=== PATIENT | female | born 1925 | race Caucasian/White ===

== ENCOUNTER 2016-05-18 10:47 | Inpatient (IN) | payer OTHER ==
--- NOTE | 2016-05-18 11:26 | PDOC ---
History of Present Illness - General History Source: Patient, Care Provider (Home health aide), Family Exam Limitations: Dementia - History of Present Illness Initial Comments: 05/18/16 11:44 The patient is an 89 year old female with significant past medical history of dementia, diabetes, a-fib (on Coumadin) who presents to the emergency department accompanied by her home health aide and family s/p a fall that happened yesterday. As per the home health aide, the patient has had multiple falls within the last week. She states the patient is unable to stand up secondary to weakness in her legs. She denies any head trauma or LOC from the fall. The home health aide also noted increased swelling in the right lower extremity since the fall. The patient is not complaining of any pain. She denies any abdominal pain, nausea, or vomiting. She denies chest pain or shortness of breath. She denies any history of heart failure, no history of blood clots, no recent travels. She denies recent illness, fevers, or chills. History is limited secondary to patients dementia. PMD: Dr. Mann <Mariel Guerra - Last Filed: 05/18/16 11:43> <Kaylie Avalos - Last Filed: 05/23/16 07:53> - General Stated Complaint: FALL Time Seen by Provider: 05/18/16 11:06 Past History <Mariel Guerra - Last Filed: 05/18/16 11:43> - Past Medical History Cardiac Disorders: Yes CVA: Yes Dementia: Yes Diabetes: Yes HTN: Yes Hypercholesterolemia: Yes Suicide Attempt (Hx): No - Psycho/Social/Smoking Cessation Hx Anxiety: No Suicidal Ideation: No Smoking Status: No Smoking History: Former smoker Have you smoked in the past 12 months: No Number of Cigarettes Smoked Daily: 0 If you are a former smoker, when did you quit?: Over 20 years ago Hx Alcohol Use: No Drug/Substance Use Hx: No Substance Use Type: None Hx Substance Use Treatment: No <Kaylie Avalos - Last Filed: 05/23/16 07:53> - Past Medical History Allergies/Adverse Reactions: Allergies Allergy/AdvReac Type Severity Reaction Status Date / Time No Known Allergies Allergy Verified 05/18/16 12:38 Home Medications: Ambulatory Orders Carbidopa/Levodopa [Carbidopa-Levo 25-100 Tab] 1 each PO TID 02/26/14 Glipizide [Glipizide ER] 5 mg PO DAILY 02/26/14 Metformin HCl [Glucophage -] 500 mg PO DAILY 02/26/14 Metoprolol Succinate [Toprol XL -] 25 mg PO DAILY 02/26/14 Oxybutynin Chloride [Oxybutynin Chloride ER] 5 mg PO DAILY 02/26/14 Ramipril [Altace] 2.5 mg PO DAILY 02/26/14 Amlodipine Besylate [Norvasc -] 2.5 mg PO DAILY #30 tablet 03/03/14 Warfarin Na [Coumadin -] 3 mg PO SUMOTUWETHSA 05/18/16 Warfarin Na [Coumadin] 4 mg PO FR 05/18/16 Review of Systems - Review of Systems Able to Perform ROS?: No (Unable to attain) <Mariel Guerra - Last Filed: 05/18/16 11:43> *Physical Exam - Physical Exam Comments: GENERAL: Awake, alert, and oriented to person and place, in no acute distress HEAD: No signs of trauma EYES: PERRLA, EOMI, sclera anicteric, conjunctiva clear ENT: Auricles normal inspection, hearing grossly normal, nares patent, oropharynx clear without exudates. Dry mucosa NECK: Normal ROM, supple, no lymphadenopathy, JVD, or masses LUNGS: Breath sounds equal, clear to auscultation bilaterally. No wheezes, and no crackles HEART: Irregularly irregular. ABDOMEN: Soft, nontender, normoactive bowel sounds. No guarding, no rebound. No masses EXTREMITIES: Normal range of motion. 2+ pitting edema RLE, 1+ edema LLE. +Large bulla 3cm diameter to R medial ankle. +Trace erythema to R medial ankle. + Tenderness to R ankle. Trace ecchymosis to R medial knee. No clubbing or cyanosis. No cords NEUROLOGICAL: Cranial nerves II through XII grossly intact. Normal speech. Motor and sensation intact. Gait not tested due to nature of complaint. SKIN: Warm, Dry, normal turgor, no rashes or lesions noted. <Kaylie Avalos - Last Filed: 05/23/16 07:53> Procedures - Splinting Splint Location: Right: Ankle Pre-Proc Neuro Vasc Exam: normal Hand-Made Type: orthoglass Splint Type: Yes: Sugar Tong, Short Leg Post-Proc Neuro Vasc Exam: normal Juan Luis Bandage: 4" Complications: No <Kaylie Avalos - Last Filed: 05/23/16 07:53> Heart Score/ECG Review - ECG Impressions Comment:: EKG read 11:13- afib, 104 bpm, no acute ST/T changes <Kaylie Avalos - Last Filed: 05/23/16 07:53> ED Treatment Course - LABORATORY CBC & Chemistry Diagram: 05/22/16 08:10 05/21/16 Unknown <Kaylie Avalos - Last Filed: 05/23/16 07:53> Medical Decision Making - Medical Decision Making Case d/w Dr. Mueller, family request for his group. Will evaluate. I have placed splint and will admit for UTI, fall, trimal fx. <Kaylie Avalos - Last Filed: 05/23/16 07:53> *DC/Admit/Observation/Transfer - Attestations Scribe Attestion: 05/18/16 11:44 Documentation prepared by Mariel Guerra, acting as medical appointment scheduler for Kaylie Avalos MD. <Mariel Guerra - Last Filed: 05/18/16 11:43> - Discharge Dispostion Admit: Yes <Kaylie Avalos - Last Filed: 05/23/16 07:53> Diagnosis at time of Disposition: Urinary tract infection Qualifiers: Urinary tract infection type: site unspecified Hematuria presence: without hematuria Qualified Code(s): N39.0 - Urinary tract infection, site not specified Trimalleolar fracture of ankle, closed Qualifiers: Encounter type: initial encounter Laterality: right Qualified Code(s): S82.851A - Displaced trimalleolar fracture of right lower leg, initial encounter for closed fracture - Discharge Dispostion Condition at time of disposition: Stable
[2016-05-18 12:42] LABS: BASOPHIL 0.3 % (0-2.0); EOSINOPHIL 0.5 % (0-4.5); MCH 28.2 pg (25.7-33.7); MCHC 32.4 g/dl (32.0-36.0); MEAN PLT VOLUME 7.5 fl (7.5-11.1); NEUTROPHILS 82.3 % (42.8-82.8); PLATELET COUNT 390 K/MM3 (134-434); RDW 15.2 % (11.6-15.6); WHITE BLOOD COUNT 15.5 K/mm3 (4.0-10.0)
[2016-05-18 12:43] LABS: URINE APPEARANCE CLEAR; URINE BILIRUBIN 1+ (NEGATIVE); URINE GLUCOSE (UA) NEGATIVE (NEGATIVE); URINE KETONE TRACE (NEGATIVE); URINE UROBILINOGEN 0.2 E.U/dl E.U./dl (0.2-1.0)
[2016-05-18 12:46] LABS: URINE BLOOD 3+ (NEGATIVE); URINE COLOR RED; URINE LEUK ESTERASE 2+ (NEGATIVE); URINE NITRITE POSITIVE (NEGATIVE); URINE PROTEIN 3+ (NEGATIVE)
[2016-05-18 12:55] LABS: URINE BACTERIA MODERATE /hpf (NONE SEEN); URINE MUCUS RARE; URINE RBC 682 /hpf (0-3); URINE WBC 851 /hpf (3-5)
[2016-05-18] MEDS ORDERED: CEFTRIAXONE 1 GM in DEXTROSE 5%-WATER - 50 ML IVPB ONE (13:00)
[2016-05-18] MEDS ORDERED: CEFTRIAXONE 50 ML ONE (13:28)
[2016-05-18 13:30] LABS: ALBUMIN 2.7 g/dl (3.4-5.0); ANION GAP 9 (8-16); BILIRUBIN,TOTAL 0.5 mg/dL (0.2-1.0); CALCIUM 8.2 mg/dL (8.5-10.1); CO2 24 mmol/L (21-32); CREATININE 1.4 mg/dL (0.55-1.02); GLUCOSE,RANDOM 200 mg/dL (74-106); SGOT/AST 27 U/L (15-37); SGPT/ALT 11 U/L (12-78)
[2016-05-18 13:35] LABS: ALK PHOS 161 U/L (45-117)
[2016-05-18 13:36] LABS: TROPONIN I < 0.02 ng/ml (0.00-0.05)
[2016-05-18 13:44] LABS: TOT PROT 7.6 g/dl (6.4-8.2)
[2016-05-18] MEDS ORDERED: morphine CARPU-JECT 4 MG/1 ML DISP.SYRIN IVPUSH PRN (17:13)
[2016-05-18] MEDS ORDERED: ONDANSETRON 4 MG/2 ML VIAL IVPB PRN (17:13)
[2016-05-18] MEDS ORDERED: RAMIPRIL 2.5 MG CAPSULE (FP) PO SCH (17:15)
[2016-05-18] MEDS ORDERED: ACETAMINOPHEN 325 MG TABLET (FP) ONE (17:28)
[2016-05-18] MEDS: ACETAMINOPHEN 325 MG TABLET (FP) PO PRN (17:32)
--- NOTE | 2016-05-18 17:58 | CONSULT ---
Cardiology Consult (text) - Consultation Consultation Note: CC: fall 89 yo with h/o dementia, cva, htn, niddm, afib on coumadin, as, mod mr, mild ar here s/p fall c/b RLE fracture, also noted to have uti. History limited due to dementia. Per report had two mechanical falls due to weakness in the past week. Family states progressive weakness for the past month. Aide denies poor po intake. No sob, cp, palps, dizzy, loc, pnd, orthopnea, le edema. No subjective f/c/s (low grade fever here), n/v/d, cough, bleeding, nasal congestion. + bed sores. Minimal ambulation, is only able to walk from one room to next at baseline, currently weakness causing difficulty walking a few steps. No h/o chf, cad. pmh: per hpi psh: non contrib social: ex tobacco fam: non contrib ros: per hpi Ambulatory Orders Carbidopa/Levodopa [Carbidopa-Levo 25-100 Tab] 1 each PO TID 02/26/14 Glipizide [Glipizide ER] 5 mg PO DAILY 02/26/14 Metformin HCl [Glucophage -] 500 mg PO DAILY 02/26/14 Metoprolol Succinate [Toprol XL -] 25 mg PO DAILY 02/26/14 Oxybutynin Chloride [Oxybutynin Chloride ER] 5 mg PO DAILY 02/26/14 Ramipril [Altace] 2.5 mg PO DAILY 02/26/14 Amlodipine Besylate [Norvasc -] 2.5 mg PO DAILY #30 tablet 03/03/14 Ramipril [Altace] 1.25 mg PO DAILY #0 capsule 03/03/14 Warfarin Na [Coumadin -] 3 mg PO DAILY@1800 #30 tablet 03/03/14 Current Medications Acetaminophen (Tylenol -) 650 mg PO Q6H PRN PRN Reason: FEVER OR PAIN Last Admin: 05/18/16 17:32 Dose: 650 mg Amlodipine Besylate (Norvasc -) 2.5 mg PO DAILY [facility] Carbidopa/Levodopa (Sinemet 25/100 -) 1 each PO TID [facility] Metoprolol Succinate (Toprol Xl -) 25 mg PO DAILY [facility] Morphine Sulfate (Morphine Injection -) 4 mg IVPUSH Q6H PRN PRN Reason: PAIN Ondansetron HCl (Zofran Injection) 4 mg IVPB Q6H PRN PRN Reason: NAUSEA Oxybutynin Chloride (Ditropan -) 5 mg PO BID BLESSING Ramipril (Altace -) 2.5 mg PO DAILY [facility] Vital Signs - 24 hr 05/18/16 05/18/16 05/18/16 12:30 12:35 16:55 Temperature 99.1 F 100.2 F H Pulse Rate 111 H Pulse Rate [ 85 81 Apical] Respiratory 16 16 16 Rate Blood Pressure 146/92 Blood Pressure 120/79 126/82 [Right] O2 Sat by Pulse 100 100 99 Oximetry (%) Intake & Output 05/16/16 05/17/16 05/18/16 05/19/16 07:59 07:59 07:59 07:59 Weight 200 lb NAD, calm JVD flat, neck supple bibasilar crackles, poor effort Irregularly, irregular nl s1, s2 no m/r/g + bs soft nt nd ext with edema under RLE dressing, no edema on left + dp/pt no carotid bruits no jaundice diaphoresis CBC, BMP 05/18/16 12:08 05/18/16 12:08 Laboratory Tests 05/18/16 05/18/16 12:08 21:15 INR 8.57 H* D Total Bilirubin 0.5 D AST 27 D ALT 11 L D Alkaline Phosphatase 161 H D Creatine Kinase 229 H D CK-MB (CK-2) 3.957 H Troponin I < 0.02 Albumin 2.7 L EKG: afib with pvc's vs aberran conduction, VR 104 bpm. nl axis. no ischemic changes. CXR: no acute pathology echo 2012: nl lv/rv. mod benito. - JON measured at 0.9, but PG and MG only 27/ 13, mod MAC. mod MR/TR. RVSP 46 89 yo with h/o dementia, cva, htn, niddm, afib on coumadin, as, mod mr, mild ar here s/p fall c/b RLE fracture, also noted to have uti. pre-operative clearance/RLE fracture. - patient with RCRI of 1, but with advanced age and poor functional status. Estimated risk of nnamdi-operative CV events is intermediate. Family counseled on risk. Patient with no active CV issues. However, would repeat echo prior to surgery to reassess degree of to help guide nnamdi-operative care. Currently without clinical signs/symptoms of severe /need for surgical intervention. Per report weakness does not seem to be a symptoms of presyncope/ syncope and more likely related to UTI. Currently with supratheraputic INR. Given h/o CVA would consider bridging patient when INR subtherapeutic. afib with h/o CVA: - Reasonable HR control given fracture/infection. Resume home metoprolol. - INR supratherapeutic. Coumadin on hold. Consider bridging if ok per surgery once INR subtherapeutic HTN - Con't metoprolol. Would hold low dose amlodipine and ramipril since currently with JESSICA and potassium upper range of normal. BP currently well controlled without having received anti-hypertensives today. mod mr, mild ar, , pHTN: - Repeat echo to assess degree of as mentioned above. - appears euvolemic. No signs of valvular decompensation - HR control as above. uti, - Continue abx per pmd. JESSICA - OK to give gentle fluids if needed per pmd. NIDDM - per pmd. - currently off statin, reasonable given dementia and age. Risk/benefit can be further addressed as outpatient
[2016-05-18 19:15] VITALS: BMI 24.4
[2016-05-18] MEDS: OXYBUTYNIN CHLORIDE 5 MG TABLET PO SCH (22:05)
[2016-05-18] MEDS: CARBIDOPA/LEVODOPA 25/100 TABLET (FP) PO SCH (22:05)
[2016-05-18 22:32] LABS: PROTHROMBIN TIME (PATIENT) 98.5 SEC (9.98-11.88)
[2016-05-18 22:46] LABS: INR 8.57 (0.82-1.09)
[2016-05-18] MEDS ORDERED: PHYTONADIONE 10 MG/1 ML AMP IVPB ONE (23:30)
[2016-05-19] MEDS: CARBIDOPA/LEVODOPA 25/100 TABLET (FP) PO SCH ×3 (07:01→22:03)
[2016-05-19 08:07] LABS: MCH 28.1 pg (25.7-33.7); MCHC 32.7 g/dl (32.0-36.0); MEAN CELL VOLUME 85.8 fl (80-96); MEAN PLT VOLUME 7.9 fl (7.5-11.1); PLATELET COUNT 326 K/MM3 (134-434); RDW 15.2 % (11.6-15.6); WHITE BLOOD COUNT 14.1 K/mm3 (4.0-10.0)
[2016-05-19 09:33] LABS: INR 1.86 (0.82-1.09); PROTHROMBIN TIME (PATIENT) 20.7 SEC (9.98-11.88)
[2016-05-19] MEDS ORDERED: amLODIPine BESYLATE 2.5 MG TABLET (FP) PO SCH (10:00)
--- NOTE | 2016-05-19 10:19 | HP ---
Admitting History and Physical - Primary Care Physician PCP: Etienne Mann - Admission Chief Complaint: s/p fall right ankle fracture, rectal bleed, uti History of Present Illness: 89 Y/O FEMALE HISTORY CHRONIC AFIB ON COUMADIN, OLD CVA, CHRONIC UTI, HERE WITH S/P FALL RIGHT MALLEOLAR FRACTURE, ACUTE RECTAL BLEED, ANEMIA, ACUTE ON CHRONIC UTI/CYSTITIS. PATIENT ALSO HAS DM/HTN/DEMENIA/UNSTEADY GAIT. 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 Cardiovascular: Yes: AFIB Renal/: Yes: UTI Endocrine: Yes: Diabetes Mellitus - Smoking History Smoking history: Former smoker Have you smoked in the past 12 months: No Aproximately how many cigarettes per day: 0 If you are a former smoker, when did you quit?: Over 20 years ago - Alcohol/Substance Use Hx Alcohol Use: No - Social History 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 History of Recent Travel: No Home Medications - Allergies Allergies/Adverse Reactions: Allergies Allergy/AdvReac Type Severity Reaction Status Date / Time No Known Allergies Allergy Verified 05/18/16 12:38 - Home Medications Home Medications: Ambulatory Orders Carbidopa/Levodopa [Carbidopa-Levo 25-100 Tab] 1 each PO TID 02/26/14 Glipizide [Glipizide ER] 5 mg PO DAILY 02/26/14 Metformin HCl [Glucophage -] 500 mg PO DAILY 02/26/14 Metoprolol Succinate [Toprol XL -] 25 mg PO DAILY 02/26/14 Oxybutynin Chloride [Oxybutynin Chloride ER] 5 mg PO DAILY 02/26/14 Ramipril [Altace] 2.5 mg PO DAILY 02/26/14 Amlodipine Besylate [Norvasc -] 2.5 mg PO DAILY #30 tablet 03/03/14 Warfarin Na [Coumadin -] 3 mg PO SUMOTUWETHSA 05/18/16 Warfarin Na [Coumadin] 4 mg PO FR 05/18/16 Review of Systems - Review of Systems Constitutional: reports: Loss of Appetite, Weakness Eyes: reports: No Symptoms HENT: reports: No Symptoms Neck: reports: No Symptoms Cardiovascular: reports: Palpitations Respiratory: reports: No Symptoms Gastrointestinal: reports: No Symptoms Genitourinary: reports: Incontinence Musculoskeletal: reports: Joint Pain, Muscle Weakness Integumentary: reports: No Symptoms Neurological: reports: Confusion, Pre-Existing Deficit, Unsteady Gait, Weakness Endocrine: reports: No Symptoms Hematology/Lymphatic: reports: No Symptoms Psychiatric: reports: Other Physical Examination Vital Signs: Vital Signs Temperature 98.8 F 05/19/16 09:22 Pulse Rate 102 H 05/19/16 09:22 Respiratory Rate 20 05/19/16 09:22 Blood Pressure 139/72 05/19/16 09:22 O2 Sat by Pulse Oximetry (%) 96 05/18/16 21:00 Constitutional: Yes: Mild Distress Eyes: Yes: WNL HENT: Yes: WNL Neck: Yes: WNL Cardiovascular: Yes: Pulse Irregular Respiratory: Yes: WNL Gastrointestinal: Yes: WNL Renal/: Yes: Incontinence, Other Musculoskeletal: Yes: Joint Swelling, Muscle Pain, Muscle Weakness Extremities: Yes: Other (RIGHT LOWER LEG SPLINT) Edema: No Integumentary: Yes: Venous Stasis Changes Wound/Incision: Yes: Dressing Dry and Intact Neurological: Yes: Confusion, Pre-Existing Deficit, Unsteady Gait, Weakness ...Motor Strength: LLE, RLE Psychiatric: Yes: Other Labs: CBC, BMP 05/19/16 07:00 Imaging - Results X-ray: Report Reviewed Problem List - Problems (1) Trimalleolar fracture of ankle, closed Code(s): S82.853A - DISPLACED TRIMALLEOLAR FRACTURE OF UNSP LOWER LEG, INIT Qualifiers: Encounter type: initial encounter Laterality: right Qualified Code( s): S82.851A - Displaced trimalleolar fracture of right lower leg, initial encounter for closed fracture (2) Urinary tract infection Code(s): N39.0 - URINARY TRACT INFECTION, SITE NOT SPECIFIED Qualifiers: Urinary tract infection type: site unspecified Hematuria presence: without hematuria Qualified Code(s): N39.0 - Urinary tract infection, site not specified (3) Bimalleolar ankle fracture Code(s): S82.843A - DISPLACED BIMALLEOLAR FRACTURE OF UNSP LOWER LEG, INIT (4) Atrial fibrillation Code(s): I48.91 - UNSPECIFIED ATRIAL FIBRILLATION (5) Diabetes Code(s): E11.9 - TYPE 2 DIABETES MELLITUS WITHOUT COMPLICATIONS Qualifiers: Diabetes mellitus complication status: with kidney complications Diabetes mellitus complication detail: with chronic kidney disease (6) Rectal bleed Code(s): K62.5 - HEMORRHAGE OF ANUS AND RECTUM (7) Anemia Code(s): D64.9 - ANEMIA, UNSPECIFIED Qualifiers: Other causes of anemia: acute posthemorrhagic (8) Dementia Code(s): F03.90 - UNSPECIFIED DEMENTIA WITHOUT BEHAVIORAL DISTURBANCE (9) CVA, old, cognitive deficits Code(s): I69.31 - COGNITIVE DEFICITS FOLLOWING CEREBRAL INFARCT * DO NOT USE * Assessment/Plan COUMADIN ON HOLD MONITOR H/H [facility]E AND GI CALLED FOR CONSULT CARDIOLOGY EVAL APPRECIATED IV ABX FOR ACUTE UTI ORTHOPEDICS WITH F/U RIGHT ANKLE FRACTURE SNF PLACEMENT ON DISCHARGE
[2016-05-19] MEDS: OXYBUTYNIN CHLORIDE 5 MG TABLET PO SCH ×2 (10:55→22:03)
[2016-05-19] MEDS: METOPROLOL SUCCINATE 25 MG TAB.SR.24H (FP) PO SCH (10:55)
[2016-05-19] MEDS: CEFTRIAXONE 100 ML IVPB SCH (10:56)
[2016-05-19] MEDS: ACETAMINOPHEN 325 MG TABLET (FP) PO PRN (11:03)
--- NOTE | 2016-05-19 11:12 | EKG ---
Test Reason : Blood Pressure : / mmHG Vent. Rate : 104 BPM Atrial Rate : 063 BPM P-R Int : 000 ms QRS Dur : 062 ms QT Int : 336 ms P-R-T Axes : 000 -20 000 degrees QTc Int : 441 ms POOR DATA QUALITY, INTERPRETATION MAY BE ADVERSELY AFFECTED ATRIAL FIBRILLATION WITH RAPID VENTRICULAR RESPONSE WITH PREMATURE VENTRICULAR OR ABERRANTLY CONDUCTED COMPLEXES ABNORMAL ECG WHEN COMPARED WITH ECG OF 26-FEB-2014 07:59, ST NO LONGER DEPRESSED IN ANTERIOR LEADS T WAVE INVERSION NOW EVIDENT IN INFERIOR LEADS Confirmed by MARIZA CAMARGO MD ([id number]) on 05/19/2016 11:11:54 AM Referred By: Confirmed By:MARIZA CAMARGO MD
[2016-05-19] MEDS ORDERED: oxyCODONE HCL 5 MG TABLET PO PRN (11:25)
[2016-05-19] MEDS: PANTOPRAZOLE SODIUM 100 ML IVPB SCH ×2 (11:25→22:03)
--- NOTE | 2016-05-19 11:29 | CONSULT ---
[id number] Present Illness Chief Complaint: R ankle pain History of Present Illness: 89 year old female with significant past medical history of dementia, diabetes, a-fib (on Coumadin) who was admitted for a right ankle fracture. The patient's nieces are at bedside. They state that the patient lives at home with the help of 2 health aides. This past week the patient fell x 2 at home. They state the patient was walking with her home health aide when she lost her balance and fell. The patient began having right ankle swelling and pain s/p the 2nd fall. The patient was brought to the ED and admitted for a right ankle fracture. The patient states her pain has decreased since the injury. Denies numbness/ tingling. She denies any previous ankle injury or surgery. 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 Cardio/Vascular: Yes: AFIB Renal/: Yes: UTI Endocrine: Yes: Diabetes Mellitus Additional Medical History: groin abscess s/p incision and drainage 2012 - Alcohol/Substance Use Hx Alcohol Use: No - Smoking History Smoking history: Former smoker Have you smoked in the past 12 months: No Aproximately how many cigarettes per day: 0 If you are a former smoker, when did you quit?: Over 20 years ago - Social History Usual Living Arrangement: Other (with aide) 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 History of Recent Travel: No Home Medications - Allergies Allergies/Adverse Reactions: Allergies Allergy/AdvReac Type Severity Reaction Status Date / Time No Known Allergies Allergy Verified 05/18/16 12:38 - Home Medications Home Medications: Ambulatory Orders Carbidopa/Levodopa [Carbidopa-Levo 25-100 Tab] 1 each PO TID 02/26/14 Glipizide [Glipizide ER] 5 mg PO DAILY 02/26/14 Metformin HCl [Glucophage -] 500 mg PO DAILY 02/26/14 Metoprolol Succinate [Toprol XL -] 25 mg PO DAILY 02/26/14 Oxybutynin Chloride [Oxybutynin Chloride ER] 5 mg PO DAILY 02/26/14 Ramipril [Altace] 2.5 mg PO DAILY 02/26/14 Amlodipine Besylate [Norvasc -] 2.5 mg PO DAILY #30 tablet 03/03/14 Warfarin Na [Coumadin -] 3 mg PO SUMOTUWETHSA 05/18/16 Warfarin Na [Coumadin] 4 mg PO FR 05/18/16 Family Disease History - Family Disease History Family History: Unable to Obtain Review of Systems - Review of Systems Constitutional: reports: No Symptoms Eyes: reports: No Symptoms HENT: reports: No Symptoms Neck: reports: No Symptoms Cardiovascular: reports: No Symptoms Respiratory: reports: No Symptoms Gastrointestinal: reports: No Symptoms Genitourinary: reports: No Symptoms Musculoskeletal: reports: Joint Pain (right ankle), Joint Swelling Integumentary: reports: No Symptoms Neurological: reports: No Symptoms Endocrine: reports: No Symptoms Hematology/Lymphatic: reports: No Symptoms Psychiatric: reports: No Symptoms Physical Exam for Ortho Vital Signs: Vital Signs Temperature 98.8 F 05/19/16 09:22 Pulse Rate 102 H 05/19/16 09:22 Respiratory Rate 20 05/19/16 09:22 Blood Pressure 139/72 05/19/16 09:22 O2 Sat by Pulse Oximetry (%) 96 05/18/16 21:00 Constitutional: Yes: Well Nourished, No Distress, Calm Neck: Yes: WNL, Supple, Trachea Midline Cardiovascular: Yes: WNL, Regular Rate and Rhythm Respiratory: Yes: WNL, Regular Neurological: Yes: WNL, Alert, Oriented Labs: CBC, BMP 05/19/16 07:00 INR, PTT INR 1.86 (0.82-1.09) H D 05/19/16 08:45 - Lower Extremity Ankle: Yes: Right, Pain, Swelling, Tenderness (tender lateral and medial malleolus), Other (intact blister noted to the anterior ankle with no surrounding erythema or discharge) - Affected Extremity Motor Strength: 5/5: Right Leg Peripheral Pulses: 2+ Left Doralis Pedis, 2+ Right Dorsalis Pedis Neuro/Vascular Assessment: Yes: Warm, [place], Normal Sensation Imaging - Results X-ray: Report Reviewed, Image Reviewed (Right ankle x-ray images and report reviewed showing a trimalleolar fracture with displacement of the lateral malleolus) Problem List - Problems (1) Trimalleolar fracture of ankle, closed Code(s): S82.853A - DISPLACED TRIMALLEOLAR FRACTURE OF UNSP LOWER LEG, INIT Qualifiers: Encounter type: initial encounter Laterality: right Qualified Code(s): S82.851A - Displaced trimalleolar fracture of right lower leg, initial encounter for closed fracture Assessment/Plan -I spoke to the patient and her nieces regarding today's findings. We discussed that there is a trimalleolar fracture present with displacement of the lateral malleolus. We reviewed the relevant anatomy and discussed the treatment options which include operative versus non-operative care. We reviewed that in general, the results are similar after a year post injury. Surgery would allow for an earlier return to function while casting would eliminate surgical risks such as bleeding, infection and neurovascular injury. Given the patient's baseline functional status, I have recommended non-operative management with a closed reduction of the lateral malleolus fragment. The patient and her nieces agreed to proceed. -Procedure: The right ankle blister was covered with a xeroform dressing. The right ankle was hung in traction. A manual reduction was effected. A well- padded short leg cast was placed utilizing a 3-point mold. Post reduction radiographs were obtained. The patient was instructed in cast care, keeping the cast clean and dry. We discussed elevating in order to limit swelling. We discussed signs of a too tight cast. -The patient will follow up with Dr. Mueller in the office in 1 week for repeat radiographs to assess the stability of the fracture. -NWB on the RLE -Ice, rest and elevate the affected extremity
[2016-05-19] MEDS ORDERED: morphine CARPU-JECT 2 MG/1 ML DISP.SYRIN ONE (11:54)
[2016-05-19] MEDS ORDERED: morphine CARPU-JECT 2 MG/1 ML DISP.SYRIN IVPUSH ONE (12:00)
[2016-05-19 12:45] LABS: ALBUMIN 2.4 g/dl (3.4-5.0); BILIRUBIN,TOTAL 1.1 mg/dL (0.2-1.0); CALCIUM 8.1 mg/dL (8.5-10.1); TOT PROT 6.6 g/dl (6.4-8.2)
[2016-05-19 12:58] LABS: MCH 28.2 pg (25.7-33.7); MCHC 32.7 g/dl (32.0-36.0); MEAN CELL VOLUME 86.1 fl (80-96); MEAN PLT VOLUME 7.7 fl (7.5-11.1); PLATELET COUNT 280 K/MM3 (134-434); RDW 14.9 % (11.6-15.6)
--- NOTE | 2016-05-19 14:27 | CONSULT ---
Consult Consult Specialty:: Nephrology Reason for Consultation:: JESSICA and UTI - History of Present Illness Chief Complaint: presented s/p fall History of Present Illness: Pt is an 89 year old female with pmhx of a-fib, dementia, and DM who presents to the ER status post fall. She was found to be in renal failure and I was called to evaluate her. She denies history of CKD. She denies hematuria or dysuria. She is incontinent. She was fount to have a right ankle fracture. Pt was also found to have a UTI. She is currently awake and alert. She appears comfortable. Family are at bedside and helped with history. 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 History of Recent Travel: No Home Medications - Allergies Allergies/Adverse Reactions: Allergies Allergy/AdvReac Type Severity Reaction Status Date / Time No Known Allergies Allergy Verified 05/18/16 12:38 - Home Medications Home Medications: Ambulatory Orders Carbidopa/Levodopa [Carbidopa-Levo 25-100 Tab] 1 each PO TID 02/26/14 Glipizide [Glipizide ER] 5 mg PO DAILY 02/26/14 Metformin HCl [Glucophage -] 500 mg PO DAILY 02/26/14 Metoprolol Succinate [Toprol XL -] 25 mg PO DAILY 02/26/14 Oxybutynin Chloride [Oxybutynin Chloride ER] 5 mg PO DAILY 02/26/14 Ramipril [Altace] 2.5 mg PO DAILY 02/26/14 Amlodipine Besylate [Norvasc -] 2.5 mg PO DAILY #30 tablet 03/03/14 Warfarin Na [Coumadin -] 3 mg PO SUMOTUWETHSA 05/18/16 Warfarin Na [Coumadin] 4 mg PO FR 05/18/16 Family Disease History - Family Disease History Family History: Denies Review of Systems - Review of Systems Constitutional: reports: Malaise Eyes: reports: No Symptoms HENT: reports: No Symptoms Neck: reports: No Symptoms Cardiovascular: reports: No Symptoms Respiratory: reports: No Symptoms Gastrointestinal: reports: No Symptoms Genitourinary: reports: Incontinence Musculoskeletal: reports: Other (ankle pain) Neurological: reports: No Symptoms Endocrine: reports: No Symptoms Psychiatric: reports: No Symptoms Physical Exam Vital Signs: Vital Signs Temperature 98.8 F 05/19/16 09:22 Pulse Rate 102 H 05/19/16 09:22 Respiratory Rate 20 05/19/16 09:22 Blood Pressure 139/72 05/19/16 09:22 O2 Sat by Pulse Oximetry (%) 96 05/19/16 09:00 Constitutional: Yes: Calm Eyes: Yes: Conjunctiva Clear HENT: Yes: Atraumatic Neck: Yes: Supple Cardiovascular: Yes: S1, S2 Respiratory: Yes: CTA Bilaterally Gastrointestinal: Yes: Soft, Abdomen, Obese Renal/: Yes: Incontinence Musculoskeletal: Yes: Other (right ankle pain) Edema: No Neurological: Yes: Oriented Psychiatric: Yes: Oriented Labs: CBC, BMP 05/19/16 12:40 05/19/16 07:00 Laboratory Tests 05/18/16 05/18/16 05/18/16 12:08 12:08 12:08 WBC 15.5 H D Hgb 10.4 L Sodium 140 Potassium 4.9 D Chloride 107 Carbon Dioxide 24 Anion Gap 9 BUN 37 H D Creatinine 1.4 H D Random Glucose 200 H D Alkaline Phosphatase 161 H D Creatine Kinase 229 H D Ur Specific [place] 1.020 Urine Protein 3+ H Urine Glucose (UA) Negative Urine Ketones Trace H Urine Blood 3+ H Urine Nitrite Positive Urine Bilirubin 1+ H Urine Urobilinogen 0.2 e.u/dl Ur Leukocyte Esterase 2+ H Urine RBC 682 Urine WBC 851 05/19/16 05/19/16 05/19/16 07:00 07:00 12:40 WBC 14.1 H 13.0 H Hgb 8.5 L D 8.1 L Sodium 142 Potassium 4.3 Chloride 111 H Carbon Dioxide Anion Gap 8 BUN Creatinine 1.0 D Random Glucose 168 H Alkaline Phosphatase 142 H Creatine Kinase Ur Specific [place] Urine Protein Urine Glucose (UA) Urine Ketones Urine Blood Urine Nitrite Urine Bilirubin Urine Urobilinogen Ur Leukocyte Esterase Urine RBC Urine WBC Imaging - Results Chest X-ray: Report Reviewed X-ray: Report Reviewed (right ankle fracture) Problem List - Problems (1) CVA, old, cognitive deficits Code(s): I69.31 - COGNITIVE DEFICITS FOLLOWING CEREBRAL INFARCT * DO NOT USE * (2) Urinary tract infection Code(s): N39.0 - URINARY TRACT INFECTION, SITE NOT SPECIFIED Qualifiers: Urinary tract infection type: site unspecified Hematuria presence: without hematuria Qualified Code(s): N39.0 - Urinary tract infection, site not specified (3) Atrial fibrillation Code(s): I48.91 - UNSPECIFIED ATRIAL FIBRILLATION (4) Dehydration Code(s): E86.0 - DEHYDRATION (5) Diabetes Code(s): E11.9 - TYPE 2 DIABETES MELLITUS WITHOUT COMPLICATIONS Qualifiers: Diabetes mellitus complication status: with kidney complications Diabetes mellitus complication detail: with chronic kidney disease Assessment/Plan Current Medications Generic Name Dose Route Start Last Admin Trade Name Freq PRN Reason Stop Dose Admin Acetaminophen 650 mg 05/18/16 17:13 05/19/16 11:03 Tylenol - PO 650 mg Q6H PRN Administration FEVER OR PAIN Carbidopa/Levodopa 1 each 05/18/16 22:00 05/19/16 07:01 Sinemet 25/100 - PO 1 each TID BLESSING Administration Ceftriaxone Sodium 100 mls @ 200 mls/hr 05/19/16 10:00 05/19/16 10:56 Rocephin 2gm Ivpb (Pre-Docked) IVPB 200 mls/hr DAILY BLESSING Administration Pantoprazole Sodium 100 mls @ 200 mls/hr 05/19/16 10:15 05/19/16 11:25 Protonix 40mg Ivpb (Pre-Docked) IVPB 200 mls/hr BID BLESSING Administration Metoprolol Succinate 25 mg 05/18/16 17:15 05/19/16 10:55 Toprol Xl - PO 25 mg DAILY BLESSING Administration Ondansetron HCl 4 mg 05/18/16 17:13 Zofran Injection IVPB Q6H PRN NAUSEA Oxybutynin Chloride 5 mg 05/18/16 22:00 05/19/16 10:55 Ditropan - PO 5 mg BID BLESSING Administration Oxycodone HCl 5 mg 05/19/16 11:25 Roxicodone - PO Q6H PRN PAIN Impression 1. UTI 2. dehydration 3. HTN 4. a-fib 5. DM 6. dementia Plan - cont current treatment - renal function is improved - cont abx - follow cultures - repeat labs in am - will follow Dr Gamez
--- NOTE | 2016-05-19 15:13 | PN ---
Progress Note (short form) - Note Progress Note: ID Consult dictated UTI/Possible sepsis secondary to UTI S/P ankle fracture OBS Await c/s Empiric ceftriaxone
--- NOTE | 2016-05-19 15:48 | CONS ---
INFECTIOUS DISEASE CONSULTATION DATE OF CONSULTATION: DATE OF DICTATION: 05/19/2016 An 89-year-old female evaluated for urinary tract infection. History was obtained from the chart as she cannot give a history of secondary to her dementia. The patient resides at home. She has had a history of recent falls. She was admitted to the hospital after a fall. She was found to have a trimalleolar fracture of the right foot. The patient's initial evaluation was significant for pyuria. Urine culture is now growing gram-negative rods. She is awake; however, she is confused. She offers no complaints. She denies any dysuria or hematuria. No complaints of suprapubic or flank pain. She denies any fever or chills. No complaints of foot pain at this time. PAST MEDICAL HISTORY: Positive for dementia, atrial fibrillation, diabetes mellitus. ALLERGIES: No known allergies. MEDICATIONS: Zofran, Tylenol, ceftriaxone, Toprol, Sinemet, oxycodone. SOCIAL HISTORY: Resides at home, has a home health aide, is dependent in activities of daily living. No active tobacco or alcohol use. SYSTEMS REVIEWED: Neurologic: Positive for dementia. No loss of consciousness, seizure activity, or focal weakness. Cardiac: Negative chest pain or palpitations. Positive atrial fibrillation. Respiratory: Negative for cough or sputum production. Gastrointestinal: Negative for vomiting or diarrhea. Genitourinary: Positive for urinary tract infection. LABORATORY DATA: White count 13.0, hematocrit 24.8, platelet count 280. BUN 32, creatinine 1.0. Urinalysis 851 white cells. Urine culture growing gram-negative rods. PHYSICAL EXAMINATION: General: She is awake; however, she is confused. She is in no acute distress. Vital Signs: Temperature 98.8, T-max 100.2. Blood pressure 139/72; pulse 80, irregular; respirations 20 per minute. Eyes: Sclerae anicteric. Heart: Sounds S1, S2. Lungs: Clear. Abdomen: Obese, soft, nontender. Lower Extremities: The right lower extremity is in a hard cast and was not examined. The left lower extremity 1+ edema. IMPRESSION: 1. Status post trimalleolar ankle fracture. 2. Urinary tract infection. 3. Dementia. We will obtain blood cultures to rule out the possibility of sepsis secondary to UTI, resulting in falls. Continue empiric ceftriaxone 2 g IV piggyback every 24 hours pending urine culture result. We will follow. Thank you for the kind referral. HIWOT ABDI M.D. SHARRI/[id number]
--- NOTE | 2016-05-19 19:09 | PN ---
Progress Note (short form) - Note Progress Note: Patient seen and examined Feels well Last Vital Signs Temp Pulse Resp BP Pulse Ox 98.8 F 78 22 139/72 96 05/19/16 14:52 05/19/16 14:52 05/19/16 14:52 05/19/16 09:22 05/19/16 09:00 HEENT: ASHISH, EOM Intact Oropharynx: No thrush, No mucositis Neck: Supple Nodes: Without adenopathy Breasts: Without masses Cor: RSR, No murmurs, No gallops Lungs: Clear to P&A Abd: Soft, Normal bowel sounds, No organomegaly Ext:No significant edema Skin: No rashes, Integument intact Abnormal Lab Results 05/18/16 05/19/16 05/19/16 21:15 07:00 07:00 WBC 14.1 H RBC 3.03 L Hgb 8.5 L D Hct 26.0 L D INR 8.57 H* D Chloride 111 H BUN 34 H Random Glucose 168 H Calcium 8.1 L Total Bilirubin 1.1 H D Alkaline Phosphatase 142 H Albumin 2.4 L 05/19/16 05/19/16 08:45 12:40 WBC 13.0 H RBC 2.88 L Hgb 8.1 L Hct 24.8 L INR 1.86 H D Chloride BUN Random Glucose Calcium Total Bilirubin Alkaline Phosphatase Albumin Current Medications Acetaminophen (Tylenol -) 650 mg PO Q6H PRN PRN Reason: FEVER OR PAIN Last Admin: 05/19/16 11:03 Dose: 650 mg Carbidopa/Levodopa (Sinemet 25/100 -) 1 each PO TID [facility] Last Admin: 05/19/16 14:45 Dose: 1 each Ceftriaxone Sodium (Rocephin 2gm Ivpb (Pre-Docked)) 100 mls @ 200 mls/hr IVPB DAILY [facility] Last Admin: 05/19/16 10:56 Dose: 200 mls/hr Pantoprazole Sodium (Protonix 40mg Ivpb (Pre-Docked)) 100 mls @ 200 mls/hr IVPB BID [facility] Last Admin: 05/19/16 11:25 Dose: 200 mls/hr Metoprolol Succinate (Toprol Xl -) 25 mg PO DAILY [facility] Last Admin: 05/19/16 10:55 Dose: 25 mg Ondansetron HCl (Zofran Injection) 4 mg IVPB Q6H PRN PRN Reason: NAUSEA Oxybutynin Chloride (Ditropan -) 5 mg PO BID BLESSING Last Admin: 05/19/16 10:55 Dose: 5 mg Oxycodone HCl (Roxicodone -) 5 mg PO Q6H PRN PRN Reason: PAIN A/P 89 y/o patient with
--- NOTE | 2016-05-19 19:09 | CONSULT ---
Consult - text type - Consultation Consultation Note: 89 year old female with significant past medical history of dementia, diabetes, a-fib (on Coumadin) who was admitted for a right ankle fracture. This past week the patient fell x 2 at home. The patient began having right ankle swelling and pain s/p the 2nd fall. The patient was brought to the ED and admitted for a right ankle fracture. The patient states her pain has decreased since the injury. Denies numbness/tingling. She denies any previous ankle injury or surgery. 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 Home Medications - Allergies Allergies/Adverse Reactions: Allergies Allergy/AdvReac Type Severity Reaction Status Date / Time No Known Allergies Allergy Verified 05/18/16 12:38 - Home Medications Home Medications: Ambulatory Orders Carbidopa/Levodopa [Carbidopa-Levo 25-100 Tab] 1 each PO TID 02/26/14 Glipizide [Glipizide ER] 5 mg PO DAILY 02/26/14 Metformin HCl [Glucophage -] 500 mg PO DAILY 02/26/14 Metoprolol Succinate [Toprol XL -] 25 mg PO DAILY 02/26/14 Oxybutynin Chloride [Oxybutynin Chloride ER] 5 mg PO DAILY 02/26/14 Ramipril [Altace] 2.5 mg PO DAILY 02/26/14 Amlodipine Besylate [Norvasc -] 2.5 mg PO DAILY #30 tablet 03/03/14 Warfarin Na [Coumadin -] 3 mg PO SUMOTUWETHSA 05/18/16 Warfarin Na [Coumadin] 4 mg PO FR 05/18/16 Current Medications Acetaminophen (Tylenol -) 650 mg PO Q6H PRN PRN Reason: FEVER OR PAIN Last Admin: 05/19/16 11:03 Dose: 650 mg Carbidopa/Levodopa (Sinemet 25/100 -) 1 each PO TID BLESSING Last Admin: 05/19/16 14:45 Dose: 1 each Ceftriaxone Sodium (Rocephin 2gm Ivpb (Pre-Docked)) 100 mls @ 200 mls/hr IVPB DAILY [facility] Last Admin: 05/19/16 10:56 Dose: 200 mls/hr Pantoprazole Sodium (Protonix 40mg Ivpb (Pre-Docked)) 100 mls @ 200 mls/hr IVPB BID [facility] Last Admin: 05/19/16 11:25 Dose: 200 mls/hr Metoprolol Succinate (Toprol Xl -) 25 mg PO DAILY [facility] Last Admin: 05/19/16 10:55 Dose: 25 mg Ondansetron HCl (Zofran Injection) 4 mg IVPB Q6H PRN PRN Reason: NAUSEA Oxybutynin Chloride (Ditropan -) 5 mg PO BID [facility] Last Admin: 05/19/16 10:55 Dose: 5 mg Oxycodone HCl (Roxicodone -) 5 mg PO Q6H PRN PRN Reason: PAIN Physical Exam for Ortho Vital Signs: Vital Signs Temperature 98.8 F 05/19/16 09:22 Pulse Rate 102 H 05/19/16 09:22 Respiratory Rate 20 05/19/16 09:22 Blood Pressure 139/72 05/19/16 09:22 O2 Sat by Pulse Oximetry (%) 96 05/18/16 21:00 Constitutional: Yes: Well Nourished, No Distress, Calm Neck: Yes: WNL, Supple, Trachea Midline Cardiovascular: Yes: WNL, Regular Rate and Rhythm Respiratory: Yes: WNL, Regular Neurological: Yes: WNL, Alert, Oriented - Lower Extremity Ankle: Yes: Right,leg cast Imaging - Results X-ray: Report Reviewed, Image Reviewed (Right ankle x-ray images and report reviewed showing a trimalleolar fracture with displacement of the lateral malleolus) A/P 89 y/o patient with htn, dm, afib, comes in with rt. ankle trimalleolar fracture, acute kidney injury chronic normocytic anemia check iron studies/ferritin/B12/folate/TSH/SPEP/UPEP/ESR/CRP
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
[2016-05-20] MEDS: CARBIDOPA/LEVODOPA 25/100 TABLET (FP) PO SCH ×3 (06:41→22:26)
[2016-05-20 08:21] LABS: MCH 28.3 pg (25.7-33.7); MCHC 32.5 g/dl (32.0-36.0); MEAN CELL VOLUME 86.9 fl (80-96); MEAN PLT VOLUME 7.6 fl (7.5-11.1); PLATELET COUNT 324 K/MM3 (134-434); WHITE BLOOD COUNT 11.8 K/mm3 (4.0-10.0)
[2016-05-20 08:32] LABS: INR 1.29 (0.82-1.09); PROTHROMBIN TIME (PATIENT) 14.3 SEC (9.98-11.88)
[2016-05-20 08:42] LABS: CALCIUM 8.1 mg/dL (8.5-10.1)
[2016-05-20 08:45] LABS: FERRITIN 339.24 ng/ml (6.9-282.5); FREE T4 1.12 ng/dl (0.76-1.46)
[2016-05-20 08:46] LABS: CREATININE 0.9 mg/dL (0.55-1.02)
[2016-05-20 08:50] LABS: THYROID STIMULATING HORMONE 2.58 uIU/ml (0.358-3.74)
[2016-05-20] MEDS: PANTOPRAZOLE SODIUM 100 ML IVPB SCH ×2 (11:27→22:26)
[2016-05-20] MEDS: OXYBUTYNIN CHLORIDE 5 MG TABLET PO SCH ×2 (11:28→22:26)
[2016-05-20] MEDS: METOPROLOL SUCCINATE 25 MG TAB.SR.24H (FP) PO SCH (11:28)
[2016-05-20] MEDS: CEFTRIAXONE 100 ML IVPB SCH (12:11)
--- NOTE | 2016-05-20 14:54 | PN ---
Progress Note, Physician - Current Medication List Current Medications: Active Medications Acetaminophen (Tylenol -) 650 mg PO Q6H PRN PRN Reason: FEVER OR PAIN Last Admin: 05/19/16 11:03 Dose: 650 mg Carbidopa/Levodopa (Sinemet 25/100 -) 1 each PO TID [facility] Last Admin: 05/20/16 06:41 Dose: 1 each Ceftriaxone Sodium (Rocephin 2gm Ivpb (Pre-Docked)) 100 mls @ 200 mls/hr IVPB DAILY [facility] Last Admin: 05/20/16 12:11 Dose: 200 mls/hr Pantoprazole Sodium (Protonix 40mg Ivpb (Pre-Docked)) 100 mls @ 200 mls/hr IVPB BID [facility] Last Admin: 05/20/16 11:27 Dose: 200 mls/hr Metoprolol Succinate (Toprol Xl -) 25 mg PO DAILY [facility] Last Admin: 05/20/16 11:28 Dose: 25 mg Ondansetron HCl (Zofran Injection) 4 mg IVPB Q6H PRN PRN Reason: NAUSEA Oxybutynin Chloride (Ditropan -) 5 mg PO BID [facility] Last Admin: 05/20/16 11:28 Dose: 5 mg Oxycodone HCl (Roxicodone -) 5 mg PO Q6H PRN PRN Reason: PAIN - Objective Vital Signs: Vital Signs Temperature 98.0 F 05/20/16 10:00 Pulse Rate 84 05/20/16 10:00 Respiratory Rate 20 05/20/16 10:00 Blood Pressure 134/69 05/20/16 10:00 O2 Sat by Pulse Oximetry (%) 96 05/19/16 21:00 Labs: CBC, BMP 05/20/16 07:00 05/20/16 07:00 INR, PTT INR 1.29 (0.82-1.09) H D 05/20/16 07:00 Assessment/Plan (1) Trimalleolar fracture of ankle, closed Code(s): S82.853A - DISPLACED TRIMALLEOLAR FRACTURE OF UNSP LOWER LEG, INIT Qualifiers: Encounter type: initial encounter Laterality: right Qualified Code( s): S82.851A - Displaced trimalleolar fracture of right lower leg, initial encounter for closed fracture (2) Urinary tract infection Code(s): N39.0 - URINARY TRACT INFECTION, SITE NOT SPECIFIED Qualifiers: Urinary tract infection type: site unspecified Hematuria presence: without hematuria Qualified Code(s): N39.0 - Urinary tract infection, site not specified (3) Bimalleolar ankle fracture Code(s): S82.843A - DISPLACED BIMALLEOLAR FRACTURE OF UNSP LOWER LEG, INIT (4) Atrial fibrillation Code(s): I48.91 - UNSPECIFIED ATRIAL FIBRILLATION (5) Diabetes Code(s): E11.9 - TYPE 2 DIABETES MELLITUS WITHOUT COMPLICATIONS Qualifiers: Diabetes mellitus complication status: with kidney complications Diabetes mellitus complication detail: with chronic kidney disease (6) Rectal bleed Code(s): K62.5 - HEMORRHAGE OF ANUS AND RECTUM (7) Anemia Code(s): D64.9 - ANEMIA, UNSPECIFIED Qualifiers: Other causes of anemia: acute posthemorrhagic (8) Dementia Code(s): F03.90 - UNSPECIFIED DEMENTIA WITHOUT BEHAVIORAL DISTURBANCE (9) CVA, old, cognitive deficits Code(s): I69.31 - COGNITIVE DEFICITS FOLLOWING CEREBRAL INFARCT * DO NOT USE * Assessment/Plan COUMADIN RESTARTED WITH HEPARIN IV (NO BOLUS) MONITOR H/H HEME AND GI CALLED FOR CONSULT CARDIOLOGY EVAL APPRECIATED IV ABX FOR ACUTE UTI ORTHOPEDICS WITH F/U RIGHT ANKLE FRACTURE -> NO OR SNF PLACEMENT ON DISCHARGE PASTOR GAN
--- NOTE | 2016-05-20 14:59 | PN ---
Progress Note, Physician History of Present Illness: awake but confused no c/o leg pain afebrile WBC improved. BC(-) Urine citrobacter / Proteus - Current Medication List Current Medications: Active Medications Acetaminophen (Tylenol -) 650 mg PO Q6H PRN PRN Reason: FEVER OR PAIN Last Admin: 05/19/16 11:03 Dose: 650 mg Carbidopa/Levodopa (Sinemet 25/100 -) 1 each PO TID [facility] Last Admin: 05/20/16 06:41 Dose: 1 each Ceftriaxone Sodium (Rocephin 2gm Ivpb (Pre-Docked)) 100 mls @ 200 mls/hr IVPB DAILY [facility] Last Admin: 05/20/16 12:11 Dose: 200 mls/hr Pantoprazole Sodium (Protonix 40mg Ivpb (Pre-Docked)) 100 mls @ 200 mls/hr IVPB BID [facility] Last Admin: 05/20/16 11:27 Dose: 200 mls/hr Metoprolol Succinate (Toprol Xl -) 25 mg PO DAILY [facility] Last Admin: 05/20/16 11:28 Dose: 25 mg Ondansetron HCl (Zofran Injection) 4 mg IVPB Q6H PRN PRN Reason: NAUSEA Oxybutynin Chloride (Ditropan -) 5 mg PO BID [facility] Last Admin: 05/20/16 11:28 Dose: 5 mg Oxycodone HCl (Roxicodone -) 5 mg PO Q6H PRN PRN Reason: PAIN - Objective Vital Signs: Vital Signs Temperature 98.0 F 05/20/16 10:00 Pulse Rate 84 05/20/16 10:00 Respiratory Rate 20 05/20/16 10:00 Blood Pressure 134/69 05/20/16 10:00 O2 Sat by Pulse Oximetry (%) 96 05/19/16 21:00 Constitutional: Yes: No Distress, Obese Cardiovascular: Yes: Regular Rate and Rhythm, S1, S2 Respiratory: Yes: Rales Gastrointestinal: Yes: Normal Bowel Sounds, Soft, Abdomen, Obese. No: Tenderness Extremities: Yes: Other (R LE with cast) Labs: CBC, BMP 05/20/16 07:00 05/20/16 07:00 INR, PTT INR 1.29 (0.82-1.09) H D 05/20/16 07:00 Assessment/Plan S/P R ankle fracture UTI/possible sepsis secondary to UTI OBS Continue ceftriaxone
--- NOTE | 2016-05-20 15:00 | PN ---
Progress Note (short form) - Note Progress Note: CC: fall S: No complaints today. No cp, sob, palps, dizziness, bleeding. No plans for surgery. Current Medications Acetaminophen (Tylenol -) 650 mg PO Q6H PRN PRN Reason: FEVER OR PAIN Last Admin: 05/19/16 11:03 Dose: 650 mg Carbidopa/Levodopa (Sinemet 25/100 -) 1 each PO TID [facility] Last Admin: 05/20/16 06:41 Dose: 1 each Heparin Sodium (Porcine) (Heparin -) 1,000 unit IVPUSH PRN PRN PRN Reason: Heparin Ceftriaxone Sodium (Rocephin 2gm Ivpb (Pre-Docked)) 100 mls @ 200 mls/hr IVPB DAILY [facility] Last Admin: 05/20/16 12:11 Dose: 200 mls/hr Pantoprazole Sodium (Protonix 40mg Ivpb (Pre-Docked)) 100 mls @ 200 mls/hr IVPB BID [facility] Last Admin: 05/20/16 11:27 Dose: 200 mls/hr Heparin Sodium/Dextrose (Heparin Infusion -) 500 mls @ 20 mls/hr IVPB TITR [facility] ; 1,000 UNITS/HR PRN Reason: Protocol Metoprolol Succinate (Toprol Xl -) 25 mg PO DAILY [facility] Last Admin: 05/20/16 11:28 Dose: 25 mg Ondansetron HCl (Zofran Injection) 4 mg IVPB Q6H PRN PRN Reason: NAUSEA Oxybutynin Chloride (Ditropan -) 5 mg PO BID [facility] Last Admin: 05/20/16 11:28 Dose: 5 mg Oxycodone HCl (Roxicodone -) 5 mg PO Q6H PRN PRN Reason: PAIN Warfarin Sodium (Coumadin -) 2 mg PO DAILY@1800 [facility] Vital Signs - 24 hr 05/19/16 05/19/16 05/20/16 19:00 21:00 02:25 Temperature 97.8 F 98.2 F 98.4 F Pulse Rate 99 H 99 H 98 H Respiratory 22 20 22 Rate Blood Pressure 148/96 135/56 120/97 O2 Sat by Pulse 96 Oximetry (%) 05/20/16 05/20/16 06:00 10:00 Temperature 98.1 F 98.0 F Pulse Rate 100 H 84 Respiratory 20 20 Rate Blood Pressure 136/69 134/69 O2 Sat by Pulse Oximetry (%) Intake & Output 05/18/16 05/19/16 05/20/16 05/21/16 07:59 07:59 07:59 07:59 Intake Total 470 895 250 Balance 470 895 250 Weight 155 lb 14.504 oz NAD, calm JVD mild elevation, neck supple bibasilar crackles, poor effort Irregularly, irregular nl s1, s2 no m/r/g + bs soft nt nd RLE edema + dp/pt no carotid bruits no jaundice diaphoresis CBC, BMP 05/20/16 07:00 05/20/16 07:00 EKG: afib with pvc's vs aberrant conduction, VR 104 bpm. nl axis. no ischemic changes. CXR: no acute pathology echo 2012: nl lv/rv. mod benito. - JON measured at 0.9, but PG and MG only , mod MAC. mod MR/TR. RVSP 46 89 yo with h/o dementia, cva, htn, niddm, afib on coumadin, as, mod mr, mild ar here s/p fall c/b RLE fracture, also noted to have uti. pre-operative clearance/RLE fracture. - patient with RCRI of 1, but with advanced age and poor functional status. Estimated risk of nnamdi-operative CV events is intermediate. Family counseled on risk. Plan is now medical management. afib with h/o CVA: - Reasonable HR control given fracture/infection. Con't metoprolol. - On heparin bridge to therapeutic INR. HTN - Con't metoprolol. Holding home low dose amlodipine and ramipril since currently with JESSICA and potassium upper range of normal. BP currently well controlled on metoprolol alone. mod mr, mild ar, mild , pHTN: - JVD slightly elevated, but patient saturating well and asymptomatic. Recent JESSICA which improved with IVF so would not diurese. Con't to monitor. Repeat CXR in am to rule out significant congestion/effusions. - HR control as above. uti, - Continue abx per pmd/ID JESSICA - resolved. NIDDM - per pmd. - currently off statin, reasonable given dementia and age. Risk/benefit can be further addressed as outpatient
--- NOTE | 2016-05-20 16:31 | PN ---
Progress Note (short form) - Note Progress Note: GASTROENTEROLOGY NO FURTHER BLEEDING. HGB IS STABLE, PER DR BARLOW'S NOTE NO SURGERY YET PLANNED VS; 141/63 110 TEMP: 97.9 ABDOMEN: SOFT BS + NONTENDER LABS: H&H 8.2/25.3 PROBLEMS: 1) SUPRATHERAPUETIC INR NOW NORMALIZED, ON HEPARIN, NO BLEEDING 2) RECTAL BLEEDING: SPOKE WITH FAMILY MEMBER TODAY ABOUT THE EXTENT OF CARE. THEY WILL TALK THIS WEEKEND ABOUT EGD AND COLONOSCOPY AND MAKE DECISION BY MONDAY OR SOONER. DR BENNETT COVERING THIS WEEKEND IF NEEDED. CLAUDIA CARRASQUILLO MD Problem List - Problems (1) Rectal bleed Code(s): K62.5 - HEMORRHAGE OF ANUS AND RECTUM (2) Supratherapeutic INR Code(s): R79.1 - ABNORMAL COAGULATION PROFILE (3) Frequent falls Code(s): R29.6 - REPEATED FALLS (4) Anemia Code(s): D64.9 - ANEMIA, UNSPECIFIED Qualifiers: Other causes of anemia: acute posthemorrhagic (5) Trimalleolar fracture of ankle, closed Code(s): S82.853A - DISPLACED TRIMALLEOLAR FRACTURE OF UNSP LOWER LEG, INIT Qualifiers: Encounter type: initial encounter Laterality: right Qualified Code(s): S82.851A - Displaced trimalleolar fracture of right lower leg, initial encounter for closed fracture (6) Urinary tract infection Code(s): N39.0 - URINARY TRACT INFECTION, SITE NOT SPECIFIED Qualifiers: Urinary tract infection type: site unspecified Hematuria presence: without hematuria Qualified Code(s): N39.0 - Urinary tract infection, site not specified (7) Atrial fibrillation Code(s): I48.91 - UNSPECIFIED ATRIAL FIBRILLATION
--- NOTE | 2016-05-20 17:55 | PN ---
Progress Note, Physician History of Present Illness: Pt seen and examined at bedside. She is awake and alert. - Current Medication List Current Medications: Active Medications Acetaminophen (Tylenol -) 650 mg PO Q6H PRN PRN Reason: FEVER OR PAIN Last Admin: 05/19/16 11:03 Dose: 650 mg Carbidopa/Levodopa (Sinemet 25/100 -) 1 each PO TID [facility] Last Admin: 05/20/16 16:42 Dose: 1 each Docusate Sodium (Colace -) 100 mg PO BID PRN PRN Reason: CONSTIPATION Heparin Sodium (Porcine) (Heparin -) 1,000 unit IVPUSH PRN PRN PRN Reason: Heparin Ceftriaxone Sodium (Rocephin 2gm Ivpb (Pre-Docked)) 100 mls @ 200 mls/hr IVPB DAILY [facility] Last Admin: 05/20/16 12:11 Dose: 200 mls/hr Pantoprazole Sodium (Protonix 40mg Ivpb (Pre-Docked)) 100 mls @ 200 mls/hr IVPB BID [facility] Last Admin: 05/20/16 11:27 Dose: 200 mls/hr Heparin Sodium/Dextrose (Heparin Infusion -) 500 mls @ 20 mls/hr IVPB TITR [facility] ; 1,000 UNITS/HR PRN Reason: Protocol Metoprolol Succinate (Toprol Xl -) 25 mg PO DAILY [facility] Last Admin: 05/20/16 11:28 Dose: 25 mg Morphine Sulfate (Morphine Injection -) 1 mg IVPUSH Q4H PRN PRN Reason: PAIN Ondansetron HCl (Zofran Injection) 4 mg IVPB Q6H PRN PRN Reason: NAUSEA Oxybutynin Chloride (Ditropan -) 5 mg PO BID [facility] Last Admin: 05/20/16 11:28 Dose: 5 mg Warfarin Sodium (Coumadin -) 1.5 mg PO DAILY@1800 [facility] - Objective Vital Signs: Vital Signs Temperature 97.9 F 05/20/16 14:37 Pulse Rate 110 H 05/20/16 14:37 Respiratory Rate 22 05/20/16 14:37 Blood Pressure 141/63 05/20/16 14:37 O2 Sat by Pulse Oximetry (%) 96 05/19/16 21:00 Constitutional: Yes: Calm Eyes: Yes: Conjunctiva Clear HENT: Yes: Atraumatic Neck: Yes: Supple Cardiovascular: Yes: S1, S2 Respiratory: Yes: On Nasal O2 Gastrointestinal: Yes: Soft, Abdomen, Obese Genitourinary: Yes: Incontinence Edema: No Neurological: Yes: Oriented Psychiatric: Yes: Oriented Labs: CBC, BMP 05/20/16 07:00 05/20/16 07:00 INR, PTT INR 1.29 (0.82-1.09) H D 05/20/16 07:00 Problem List - Problems (1) CVA, old, cognitive deficits Code(s): I69.31 - COGNITIVE DEFICITS FOLLOWING CEREBRAL INFARCT * DO NOT USE * (2) Urinary tract infection Code(s): N39.0 - URINARY TRACT INFECTION, SITE NOT SPECIFIED Qualifiers: Urinary tract infection type: site unspecified Hematuria presence: without hematuria Qualified Code(s): N39.0 - Urinary tract infection, site not specified (3) Atrial fibrillation Code(s): I48.91 - UNSPECIFIED ATRIAL FIBRILLATION (4) Dehydration Code(s): E86.0 - DEHYDRATION (5) Diabetes Code(s): E11.9 - TYPE 2 DIABETES MELLITUS WITHOUT COMPLICATIONS Qualifiers: Diabetes mellitus complication status: with kidney complications Diabetes mellitus complication detail: with chronic kidney disease Assessment/Plan Current Medications Generic Name Dose Route Start Last Admin Trade Name Freq PRN Reason Stop Dose Admin Acetaminophen 650 mg 05/18/16 17:13 05/19/16 11:03 Tylenol - PO 650 mg Q6H PRN Administration FEVER OR PAIN Carbidopa/Levodopa 1 each 05/18/16 22:00 05/20/16 16:42 Sinemet 25/100 - PO 1 each TID [facility] Administration Docusate Sodium 100 mg 05/20/16 16:12 Colace - PO BID PRN CONSTIPATION Heparin Sodium (Porcine) 1,000 unit 05/20/16 14:57 Heparin - IVPUSH PRN PRN Heparin Ceftriaxone Sodium 100 mls @ 200 mls/hr 05/19/16 10:00 05/20/16 12:11 Rocephin 2gm Ivpb (Pre-Docked) IVPB 200 mls/hr DAILY [facility] Administration Pantoprazole Sodium 100 mls @ 200 mls/hr 05/19/16 10:15 05/20/16 11:27 Protonix 40mg Ivpb (Pre-Docked) IVPB 200 mls/hr BID [facility] Administration Heparin Sodium/Dextrose 500 mls @ 20 mls/hr 05/20/16 15:00 Heparin Infusion - IVPB TITR [facility] Protocol 1,000 UNITS/HR Metoprolol Succinate 25 mg 05/18/16 17:15 05/20/16 11:28 Toprol Xl - PO 25 mg DAILY [facility] Administration Morphine Sulfate 1 mg 05/20/16 16:12 Morphine Injection - IVPUSH Q4H PRN PAIN Ondansetron HCl 4 mg 05/18/16 17:13 Zofran Injection IVPB Q6H PRN NAUSEA Oxybutynin Chloride 5 mg 05/18/16 22:00 05/20/16 11:28 Ditropan - PO 5 mg BID [facility] Administration Warfarin Sodium 1.5 mg 05/20/16 18:00 Coumadin - PO DAILY@1800 [facility] Impression 1. UTI 2. dehydration 3. HTN 4. a-fib 5. DM 6. dementia Plan - renal function is improving - cont to monitor BMP - ortho input appreciated - cont abx - follow cultures - repeat labs in am - will follow Dr Gamez
[2016-05-20] MEDS ORDERED: WARFARIN NA 1 MG TABLET (FP) PO SCH (18:00)
[2016-05-20] MEDS ORDERED: WARFARIN NA 2 MG TABLET (UD) PO SCH (18:00)
[2016-05-20] MEDS: HEPARIN INFUSION - 500 ML IVPB SCH (18:34)
--- NOTE | 2016-05-20 18:38 | PN ---
Progress Note (short form) - Note Progress Note: Patient seen and examined S/P trimalleolar ankle reduction and casting Last Vital Signs Temp Pulse Resp BP Pulse Ox 97.9 F 110 H 22 141/63 96 05/20/16 14:37 05/20/16 14:37 05/20/16 14:37 05/20/16 14:37 05/19/16 21:00 Confused Unable to obtain meaningful history Breasts: Without masses Cor irregular Lungs: Rales bilateral at bases Abd: Soft, Normal bowel sounds, No organomegaly Ext:cast RLE CBC, BMP 05/20/16 07:00 05/20/16 07:00 Current Medications Generic Name Dose Route Start Last Admin Trade Name Freq PRN Reason Stop Dose Admin Acetaminophen 650 mg 05/18/16 17:13 05/19/16 11:03 Tylenol - PO 650 mg Q6H PRN Administration FEVER OR PAIN Carbidopa/Levodopa 1 each 05/18/16 22:00 05/20/16 16:42 Sinemet 25/100 - PO 1 each TID [facility] Administration Docusate Sodium 100 mg 05/20/16 16:12 Colace - PO BID PRN [facility]STIP[facility] Heparin Sodium (Porcine) 1,000 unit 05/20/16 14:57 Heparin - IVPUSH PRN PRN Heparin Ceftriaxone Sodium 100 mls @ 200 mls/hr 05/19/16 10:00 05/20/16 12:11 Rocephin 2gm Ivpb (Pre-Docked) IVPB 200 mls/hr DAILY [facility] Administration Pantoprazole Sodium 100 mls @ 200 mls/hr 05/19/16 10:15 05/20/16 11:27 Protonix 40mg Ivpb (Pre-Docked) IVPB 200 mls/hr BID [facility] Administration Heparin Sodium/Dextrose 500 mls @ 20 mls/hr 05/20/16 15:00 Heparin Infusion - IVPB TITR [facility] Protocol 1,000 UNITS/HR Metoprolol Succinate 25 mg 05/18/16 17:15 05/20/16 11:28 Toprol Xl - PO 25 mg DAILY [facility] Administration Morphine Sulfate 1 mg 05/20/16 16:12 Morphine Injection - IVPUSH Q4H PRN PAIN Ondansetron HCl 4 mg 05/18/16 17:13 Zofran Injection IVPB Q6H PRN NAUSEA Oxybutynin Chloride 5 mg 05/18/16 22:00 05/20/16 11:28 Ditropan - PO 5 mg BID [facility] Administration Warfarin Sodium 1.5 mg 05/20/16 18:00 Coumadin - PO DAILY@1800 [facility] Impression: S/P reduction of trimalleolar fx with casting Anemia- Initial Hct 32% . Following day-26% with normal indices. B-12 and TSH normal Fe++ studies pending. Heme positive stools.Protein studies pending . Atrial Fib A/c- begun on heparin Patient fell 2 x at home--is she a candidate for long-term a/c?? IF yes, then GI work up seems appropriate despite normal indices. FE++ studies will be helpful in this regard. If GI work up is to be done then coumadin will need be held. In patient w/u seems reasonable in view of age, dementia, immobility , ? of coumadin ec.
[2016-05-20] MEDS: morphine CARPU-JECT 2 MG/1 ML DISP.SYRIN IVPUSH PRN (23:07)
[2016-05-21] MEDS: HEPARIN INFUSION - 500 ML IVPB SCH ×2 (01:00→18:43)
[2016-05-21] MEDS ORDERED: HEPARIN NA (PORCINE) 5,000 UNITS/ML 1ML VIAL IVPUSH PRN (03:50)
[2016-05-21] MEDS ORDERED: HEPARIN NA (PORCINE) 5,000 UNITS/ML 1ML VIAL IVPUSH ONE (03:50)
[2016-05-21] MEDS: CARBIDOPA/LEVODOPA 25/100 TABLET (FP) PO SCH ×3 (06:29→21:28)
[2016-05-21 09:16] LABS: INR 1.51 (0.82-1.09); PROTHROMBIN TIME (PATIENT) 16.7 SEC (9.98-11.88)
[2016-05-21 10:11] LABS: HEMATOCRIT 25.7 % (34.0-46.6)
[2016-05-21] MEDS: PANTOPRAZOLE SODIUM 100 ML IVPB SCH ×2 (10:14→21:27)
[2016-05-21] MEDS: OXYBUTYNIN CHLORIDE 5 MG TABLET PO SCH ×2 (10:14→21:27)
[2016-05-21] MEDS: METOPROLOL SUCCINATE 25 MG TAB.SR.24H (FP) PO SCH (10:14)
[2016-05-21] MEDS: CEFTRIAXONE 100 ML IVPB SCH (11:57)
[2016-05-21 12:33] LABS: ALBUMIN 2.1 g/dl (3.4-5.0); TOT PROT 6.4 g/dl (6.4-8.2)
[2016-05-21 12:34] LABS: BILIRUBIN,TOTAL 0.7 mg/dL (0.2-1.0); CREATININE 0.9 mg/dL (0.55-1.02)
--- NOTE | 2016-05-21 12:47 | PN ---
Progress Note, Physician History of Present Illness: IN BED - Current Medication List Current Medications: Active Medications Acetaminophen (Tylenol -) 650 mg PO Q6H PRN PRN Reason: FEVER OR PAIN Last Admin: 05/19/16 11:03 Dose: 650 mg Carbidopa/Levodopa (Sinemet 25/100 -) 1 each PO TID [facility] Last Admin: 05/21/16 06:29 Dose: 1 each Docusate Sodium (Colace -) 100 mg PO BID PRN PRN Reason: CONSTIPATION Heparin Sodium (Porcine) (Heparin -) 1,000 unit IVPUSH PRN PRN PRN Reason: Heparin Heparin Sodium (Porcine) (Heparin -) 5,000 unit IVPUSH PRN PRN Last Admin: 05/21/16 03:30 Dose: 5,000 unit Ceftriaxone Sodium (Rocephin 2gm Ivpb (Pre-Docked)) 100 mls @ 200 mls/hr IVPB DAILY [facility] Last Admin: 05/21/16 11:57 Dose: 200 mls/hr Pantoprazole Sodium (Protonix 40mg Ivpb (Pre-Docked)) 100 mls @ 200 mls/hr IVPB BID [facility] Last Admin: 05/21/16 10:14 Dose: 200 mls/hr Heparin Sodium/Dextrose (Heparin Infusion -) 500 mls @ 20 mls/hr IVPB TITR [facility] ; 1,000 UNITS/HR PRN Reason: Protocol Last Titration: 05/21/16 11:25 Dose: 0 units/hr Metoprolol Succinate (Toprol Xl -) 25 mg PO DAILY [facility] Last Admin: 05/21/16 10:14 Dose: 25 mg Morphine Sulfate (Morphine Injection -) 1 mg IVPUSH Q4H PRN PRN Reason: PAIN Last Admin: 05/20/16 23:07 Dose: 1 mg Ondansetron HCl (Zofran Injection) 4 mg IVPB Q6H PRN PRN Reason: NAUSEA Oxybutynin Chloride (Ditropan -) 5 mg PO BID [facility] Last Admin: 05/21/16 10:14 Dose: 5 mg Warfarin Sodium (Coumadin -) 1.5 mg PO DAILY@1800 [facility] Last Admin: 05/20/16 18:39 Dose: Not Given - Objective Vital Signs: Vital Signs Temperature 98.2 F 05/21/16 06:00 Pulse Rate 109 H 05/21/16 06:00 Respiratory Rate 20 01/14/17 06:00 Blood Pressure 158/92 05/21/16 06:00 O2 Sat by Pulse Oximetry (%) 97 05/20/16 21:00 Cardiovascular: Yes: S1, S2 Respiratory: Yes: Regular, CTA Bilaterally Gastrointestinal: Yes: Normal Bowel Sounds, Soft Extremities: Yes: Other (CAST IN PLACE) Labs: CBC, BMP 05/20/16 07:00 05/21/16 Unknown INR, PTT INR 1.51 (0.82-1.09) H 05/21/16 08:15 Assessment/Plan Assessment/Plan (1) Trimalleolar fracture of ankle, closed CAST IN PLACE SNF Code(s): S82.853A - DISPLACED TRIMALLEOLAR FRACTURE OF UNSP LOWER LEG, INIT Qualifiers: Encounter type: initial encounter Laterality: right Qualified Code( s): S82.851A - Displaced trimalleolar fracture of right lower leg, initial encounter for closed fracture (2) Urinary tract infection ABX PER ID Code(s): N39.0 - URINARY TRACT INFECTION, SITE NOT SPECIFIED Qualifiers: Urinary tract infection type: site unspecified Hematuria presence: without hematuria Qualified Code(s): N39.0 - Urinary tract infection, site not specified (3) Bimalleolar ankle fracture Code(s): S82.843A - DISPLACED BIMALLEOLAR FRACTURE OF UNSP LOWER LEG, INIT (4) Atrial fibrillation ON COUMADIN AND HEPARIN MONITOR INR---1.5 Code(s): I48.91 - UNSPECIFIED ATRIAL FIBRILLATION (5) Diabetes Code(s): E11.9 - TYPE 2 DIABETES MELLITUS WITHOUT COMPLICATIONS Qualifiers: Diabetes mellitus complication status: with kidney complications Diabetes mellitus complication detail: with chronic kidney disease (6) Rectal bleed FOLLOW CBC Code(s): K62.5 - HEMORRHAGE OF ANUS AND RECTUM (7) Anemia Code(s): D64.9 - ANEMIA, UNSPECIFIED Qualifiers: Other causes of anemia: acute posthemorrhagic (8) Dementia Code(s): F03.90 - UNSPECIFIED DEMENTIA WITHOUT BEHAVIORAL DISTURBANCE (9) CVA, old, cognitive deficits Code(s): I69.31 - COGNITIVE DEFICITS FOLLOWING CEREBRAL INFARCT * DO NOT USE *
[2016-05-21 13:10] LABS: BILIRUBIN,TOTAL 0.8 mg/dL (0.2-1.0); CALCIUM 8.1 mg/dL (8.5-10.1); CREATININE 0.9 mg/dL (0.55-1.02); TOT PROT 6.4 g/dl (6.4-8.2)
[2016-05-21] MEDS: morphine CARPU-JECT 2 MG/1 ML DISP.SYRIN IVPUSH PRN ×2 (13:52→18:44)
--- NOTE | 2016-05-21 15:02 | PN ---
Progress Note, Physician History of Present Illness: Pt seen and examined at bedside. She feels better today. - Current Medication List Current Medications: Active Medications Acetaminophen (Tylenol -) 650 mg PO Q6H PRN PRN Reason: FEVER OR PAIN Last Admin: 05/19/16 11:03 Dose: 650 mg Carbidopa/Levodopa (Sinemet 25/100 -) 1 each PO TID [facility] Last Admin: 05/21/16 13:45 Dose: 1 each Docusate Sodium (Colace -) 100 mg PO BID PRN PRN Reason: CONSTIPATION Heparin Sodium (Porcine) (Heparin -) 1,000 unit IVPUSH PRN PRN PRN Reason: Heparin Heparin Sodium (Porcine) (Heparin -) 5,000 unit IVPUSH PRN PRN Last Admin: 05/21/16 03:30 Dose: 5,000 unit Ceftriaxone Sodium (Rocephin 2gm Ivpb (Pre-Docked)) 100 mls @ 200 mls/hr IVPB DAILY [facility] Last Admin: 05/21/16 11:57 Dose: 200 mls/hr Pantoprazole Sodium (Protonix 40mg Ivpb (Pre-Docked)) 100 mls @ 200 mls/hr IVPB BID [facility] Last Admin: 05/21/16 10:14 Dose: 200 mls/hr Heparin Sodium/Dextrose (Heparin Infusion -) 500 mls @ 20 mls/hr IVPB TITR [facility] ; 1,000 UNITS/HR PRN Reason: Protocol Last Titration: 05/21/16 12:25 Dose: 1,000 units/hr Metoprolol Succinate (Toprol Xl -) 25 mg PO DAILY [facility] Last Admin: 05/21/16 10:14 Dose: 25 mg Morphine Sulfate (Morphine Injection -) 1 mg IVPUSH Q4H PRN PRN Reason: PAIN Last Admin: 05/21/16 13:52 Dose: 1 mg Ondansetron HCl (Zofran Injection) 4 mg IVPB Q6H PRN PRN Reason: NAUSEA Oxybutynin Chloride (Ditropan -) 5 mg PO BID [facility] Last Admin: 05/21/16 10:14 Dose: 5 mg Warfarin Sodium (Coumadin -) 1.5 mg PO DAILY@1800 [facility] Last Admin: 05/20/16 18:39 Dose: Not Given - Objective Vital Signs: Vital Signs Temperature 98.2 F 05/21/16 06:00 Pulse Rate 109 H 05/21/16 06:00 Respiratory Rate 20 05/21/16 06:00 Blood Pressure 158/92 05/21/16 06:00 O2 Sat by Pulse Oximetry (%) 97 05/20/16 21:00 Constitutional: Yes: Calm Eyes: Yes: Conjunctiva Clear HENT: Yes: Atraumatic Neck: Yes: Supple Cardiovascular: Yes: S1, S2 Respiratory: Yes: CTA Bilaterally Gastrointestinal: Yes: Soft Genitourinary: Yes: Incontinence Edema: No Neurological: Yes: Oriented Labs: CBC, BMP 05/20/16 07:00 05/21/16 Unknown INR, PTT INR 1.51 (0.82-1.09) H 05/21/16 08:15 Problem List - Problems (1) CVA, old, cognitive deficits Code(s): I69.31 - COGNITIVE DEFICITS FOLLOWING CEREBRAL INFARCT * DO NOT USE * (2) Urinary tract infection Code(s): N39.0 - URINARY TRACT INFECTION, SITE NOT SPECIFIED Qualifiers: Qualified Code(s): N39.0 - Urinary tract infection, site not specified (3) Atrial fibrillation Code(s): I48.91 - UNSPECIFIED ATRIAL FIBRILLATION (4) Dehydration Code(s): E86.0 - DEHYDRATION (5) Diabetes Code(s): E11.9 - TYPE 2 DIABETES MELLITUS WITHOUT COMPLICATIONS Assessment/Plan Current Medications Generic Name Dose Route Start Last Admin Trade Name Freq PRN Reason Stop Dose Admin Acetaminophen 650 mg 05/18/16 17:13 05/19/16 11:03 Tylenol - PO 650 mg Q6H PRN Administration FEVER OR PAIN Carbidopa/Levodopa 1 each 05/18/16 22:00 05/21/16 13:45 Sinemet 25/100 - PO 1 each TID [facility] Administration Docusate Sodium 100 mg 05/20/16 16:12 Colace - PO BID PRN CONSTIPATION Heparin Sodium (Porcine) 1,000 unit 05/20/16 14:57 Heparin - IVPUSH PRN PRN Heparin Heparin Sodium (Porcine) 5,000 unit 05/21/16 03:50 05/21/16 03:30 Heparin - IVPUSH 5,000 unit PRN PRN Administration Ceftriaxone Sodium 100 mls @ 200 mls/hr 05/19/16 10:00 05/21/16 11:57 Rocephin 2gm Ivpb (Pre-Docked) IVPB 200 mls/hr DAILY [facility] Administration Pantoprazole Sodium 100 mls @ 200 mls/hr 05/19/16 10:15 05/21/16 10:14 Protonix 40mg Ivpb (Pre-Docked) IVPB 200 mls/hr BID [facility] Administration Heparin Sodium/Dextrose 500 mls @ 20 mls/hr 05/20/16 15:00 05/21/16 12:25 Heparin Infusion - IVPB 1,000 units/hr TITR [facility] Titration Protocol 1,000 UNITS/HR Metoprolol Succinate 25 mg 05/18/16 17:15 05/21/16 10:14 Toprol Xl - PO 25 mg DAILY [facility] Administration Morphine Sulfate 1 mg 05/20/16 16:12 05/21/16 13:52 Morphine Injection - IVPUSH 1 mg Q4H PRN Administration PAIN Ondansetron HCl 4 mg 05/18/16 17:13 Zofran Injection IVPB Q6H PRN NAUSEA Oxybutynin Chloride 5 mg 05/18/16 22:00 05/21/16 10:14 Ditropan - PO 5 mg BID [facility] Administration Warfarin Sodium 1.5 mg 05/20/16 18:00 05/20/16 18:39 Coumadin - PO Not Given DAILY@1800 [facility] Impression 1. UTI 2. dehydration 3. HTN 4. a-fib 5. DM 6. dementia Plan - renal function is stable - outpt follow up - cont current treatment - will follow PRN Thank you Dr Gamez
[2016-05-22] MEDS: CARBIDOPA/LEVODOPA 25/100 TABLET (FP) PO SCH ×3 (06:37→22:08)
[2016-05-22 08:25] LABS: MCHC 32.6 g/dl (32.0-36.0); MEAN PLT VOLUME 6.8 fl (7.5-11.1); PLATELET COUNT 358 K/MM3 (134-434); RDW 15.1 % (11.6-15.6)
[2016-05-22 08:45] LABS: INR 1.51 (0.82-1.09); PROTHROMBIN TIME (PATIENT) 16.7 SEC (9.98-11.88)
[2016-05-22] MEDS ORDERED: PT OWN MED DRAWER 7, Y5N ONE (10:53)
[2016-05-22] MEDS: morphine CARPU-JECT 2 MG/1 ML DISP.SYRIN IVPUSH PRN ×2 (11:01→15:58)
[2016-05-22] MEDS: OXYBUTYNIN CHLORIDE 5 MG TABLET PO SCH ×2 (11:02→22:07)
[2016-05-22] MEDS: METOPROLOL SUCCINATE 25 MG TAB.SR.24H (FP) PO SCH (11:02)
[2016-05-22] MEDS: PANTOPRAZOLE SODIUM 100 ML IVPB SCH ×2 (11:03→22:07)
[2016-05-22] MEDS: CEFTRIAXONE 100 ML IVPB SCH (11:04)
--- NOTE | 2016-05-22 11:29 | PN ---
Progress Note, Physician History of Present Illness: IN BED - Current Medication List Current Medications: Active Medications Acetaminophen (Tylenol -) 650 mg PO Q6H PRN PRN Reason: FEVER OR PAIN Last Admin: 05/19/16 11:03 Dose: 650 mg Carbidopa/Levodopa (Sinemet 25/100 -) 1 each PO TID [facility] Last Admin: 05/22/16 06:37 Dose: 1 each Docusate Sodium (Colace -) 100 mg PO BID PRN PRN Reason: CONSTIPATION Heparin Sodium (Porcine) (Heparin -) 1,000 unit IVPUSH PRN PRN PRN Reason: Heparin Heparin Sodium (Porcine) (Heparin -) 5,000 unit IVPUSH PRN PRN Last Admin: 05/21/16 03:30 Dose: 5,000 unit Ceftriaxone Sodium (Rocephin 2gm Ivpb (Pre-Docked)) 100 mls @ 200 mls/hr IVPB DAILY [facility] Last Admin: 05/22/16 11:04 Dose: 200 mls/hr Pantoprazole Sodium (Protonix 40mg Ivpb (Pre-Docked)) 100 mls @ 200 mls/hr IVPB BID [facility] Last Admin: 05/22/16 11:03 Dose: 200 mls/hr Heparin Sodium/Dextrose (Heparin Infusion -) 500 mls @ 20 mls/hr IVPB TITR BLESSING ; 1,000 UNITS/HR PRN Reason: Protocol Last Titration: 05/21/16 21:20 Dose: 950 units/hr Metoprolol Succinate (Toprol Xl -) 25 mg PO DAILY [facility] Last Admin: 05/22/16 11:02 Dose: 25 mg Morphine Sulfate (Morphine Injection -) 1 mg IVPUSH Q4H PRN PRN Reason: PAIN Last Admin: 05/22/16 11:01 Dose: 1 mg Ondansetron HCl (Zofran Injection) 4 mg IVPB Q6H PRN PRN Reason: NAUSEA Oxybutynin Chloride (Ditropan -) 5 mg PO BID [facility] Last Admin: 05/22/16 11:02 Dose: 5 mg Warfarin Sodium (Coumadin -) 1.5 mg PO DAILY@1800 [facility] Last Admin: 05/20/16 18:39 Dose: Not Given - Objective Vital Signs: Vital Signs Temperature 99.0 F 05/22/16 06:00 Pulse Rate 99 H 05/22/16 06:00 Respiratory Rate 18 01/15/17 06:00 Blood Pressure 135/60 05/22/16 06:00 O2 Sat by Pulse Oximetry (%) 97 05/21/16 21:00 Cardiovascular: Yes: Pulse Irregular, S1, S2 Respiratory: Yes: Regular, CTA Bilaterally Gastrointestinal: Yes: Normal Bowel Sounds, Soft Labs: CBC, BMP 05/22/16 08:10 05/21/16 Unknown INR, PTT INR 1.51 (0.82-1.09) H 05/22/16 08:10 Assessment/Plan Assessment/Plan (1) Trimalleolar fracture of ankle, closed CAST IN PLACE SNF Code(s): S82.853A - DISPLACED TRIMALLEOLAR FRACTURE OF UNSP LOWER LEG, INIT Qualifiers: Encounter type: initial encounter Laterality: right Qualified Code( s): S82.851A - Displaced trimalleolar fracture of right lower leg, initial encounter for closed fracture (2) Urinary tract infection ABX PER ID Code(s): N39.0 - URINARY TRACT INFECTION, SITE NOT SPECIFIED Qualifiers: Urinary tract infection type: site unspecified Hematuria presence: without hematuria Qualified Code(s): N39.0 - Urinary tract infection, site not specified (3) Bimalleolar ankle fracture Code(s): S82.843A - DISPLACED BIMALLEOLAR FRACTURE OF UNSP LOWER LEG, INIT (4) Atrial fibrillation ON COUMADIN AND HEPARIN MONITOR INR---1.5--INCREASE COUMADIN TO 2 MG Code(s): I48.91 - UNSPECIFIED ATRIAL FIBRILLATION (5) Diabetes Code(s): E11.9 - TYPE 2 DIABETES MELLITUS WITHOUT COMPLICATIONS Qualifiers: Diabetes mellitus complication status: with kidney complications Diabetes mellitus complication detail: with chronic kidney disease (6) Rectal bleed FOLLOW CBC Code(s): K62.5 - HEMORRHAGE OF ANUS AND RECTUM (7) Anemia Code(s): D64.9 - ANEMIA, UNSPECIFIED Qualifiers: Other causes of anemia: acute posthemorrhagic (8) Dementia Code(s): F03.90 - UNSPECIFIED DEMENTIA WITHOUT BEHAVIORAL DISTURBANCE (9) CVA, old, cognitive deficits Code(s): I69.31 - COGNITIVE DEFICITS FOLLOWING CEREBRAL INFARCT * DO NOT USE *
[2016-05-22] MEDS: DOCUSATE SODIUM 100 MG CAPSULE (FP) PO PRN (13:59)
[2016-05-22] MEDS: HEPARIN INFUSION - 500 ML IVPB SCH (14:01)
--- NOTE | 2016-05-22 14:34 | EKG ---
Test Reason : Blood Pressure : / mmHG Vent. Rate : 097 BPM Atrial Rate : 091 BPM P-R Int : 000 ms QRS Dur : 066 ms QT Int : 296 ms P-R-T Axes : 000 -15 033 degrees QTc Int : 375 ms ATRIAL FIBRILLATION NONSPECIFIC ST ABNORMALITY ABNORMAL ECG WHEN COMPARED WITH ECG OF 18-MAY-2016 11:09, NONSPECIFIC T WAVE ABNORMALITY HAS REPLACED INVERTED T WAVES IN INFERIOR LEADS QT HAS SHORTENED Confirmed by MCKINLEY WILSON, ANI ([id number]) on 05/22/2016 2:33:41 PM Referred By: RANJAN RAY Confirmed By:ANI SEN MD
--- NOTE | 2016-05-22 15:45 | PN ---
Progress Note, Physician History of Present Illness: Awake but lethargic, confused No complaints Denies leg pain Afebrile WBC remains elevated - Current Medication List Current Medications: Active Medications Acetaminophen (Tylenol -) 650 mg PO Q6H PRN PRN Reason: FEVER OR PAIN Last Admin: 05/19/16 11:03 Dose: 650 mg Carbidopa/Levodopa (Sinemet 25/100 -) 1 each PO TID [facility] Last Admin: 05/22/16 13:59 Dose: 1 each Docusate Sodium (Colace -) 100 mg PO BID PRN PRN Reason: CONSTIPATION Last Admin: 05/22/16 13:59 Dose: 100 mg Heparin Sodium (Porcine) (Heparin -) 1,000 unit IVPUSH PRN PRN PRN Reason: Heparin Heparin Sodium (Porcine) (Heparin -) 5,000 unit IVPUSH PRN PRN Last Admin: 05/21/16 03:30 Dose: 5,000 unit Ceftriaxone Sodium (Rocephin 2gm Ivpb (Pre-Docked)) 100 mls @ 200 mls/hr IVPB DAILY [facility] Last Admin: 05/22/16 11:04 Dose: 200 mls/hr Pantoprazole Sodium (Protonix 40mg Ivpb (Pre-Docked)) 100 mls @ 200 mls/hr IVPB BID [facility] Last Admin: 05/22/16 11:03 Dose: 200 mls/hr Heparin Sodium/Dextrose (Heparin Infusion -) 500 mls @ 20 mls/hr IVPB TITR BLESSING ; 1,000 UNITS/HR PRN Reason: Protocol Last Admin: 05/22/16 14:01 Dose: 19 mls/hr Metoprolol Succinate (Toprol Xl -) 25 mg PO DAILY [facility] Last Admin: 05/22/16 11:02 Dose: 25 mg Morphine Sulfate (Morphine Injection -) 1 mg IVPUSH Q4H PRN PRN Reason: PAIN Last Admin: 05/22/16 11:01 Dose: 1 mg Ondansetron HCl (Zofran Injection) 4 mg IVPB Q6H PRN PRN Reason: NAUSEA Oxybutynin Chloride (Ditropan -) 5 mg PO BID [facility] Last Admin: 05/22/16 11:02 Dose: 5 mg Warfarin Sodium (Coumadin -) 2 mg PO DAILY@1800 [facility] - Objective Vital Signs: Vital Signs Temperature 98.4 F 05/22/16 14:51 Pulse Rate 99 H 05/22/16 14:51 Respiratory Rate 18 05/22/16 14:51 Blood Pressure 141/55 05/22/16 14:51 O2 Sat by Pulse Oximetry (%) 95 05/22/16 09:00 Constitutional: Yes: No Distress Eyes: Yes: Conjunctiva Clear Cardiovascular: Yes: Regular Rate and Rhythm, S1, S2 Respiratory: Yes: CTA Bilaterally Gastrointestinal: Yes: Normal Bowel Sounds, Soft. No: Tenderness Extremities: Yes: Other (hard cast in place LE) Labs: CBC, BMP 05/22/16 08:10 05/21/16 Unknown INR, PTT INR 1.51 (0.82-1.09) H 05/22/16 08:10 Assessment/Plan S/P R ankle fracture UTI/possible sepsis secondary to UTI OBS Continue ceftriaxone
[2016-05-22] MEDS ORDERED: WARFARIN NA 2 MG TABLET (UD) PO SCH (18:00)
[2016-05-23] MEDS: DOCUSATE SODIUM 100 MG CAPSULE (FP) PO PRN (06:09)
[2016-05-23] MEDS: CARBIDOPA/LEVODOPA 25/100 TABLET (FP) PO SCH ×3 (06:09→22:22)
[2016-05-23 07:38] LABS: INR 1.51 (0.82-1.09); PROTHROMBIN TIME (PATIENT) 16.8 SEC (9.98-11.88)
[2016-05-23 07:41] LABS: MCH 28.9 pg (25.7-33.7); MCHC 33.9 g/dl (32.0-36.0); MEAN CELL VOLUME 85.2 fl (80-96); MEAN PLT VOLUME 7.7 fl (7.5-11.1); PLATELET COUNT 346 K/MM3 (134-434); RDW 14.5 % (11.6-15.6)
--- NOTE | 2016-05-23 09:52 | PN ---
[id number] (Tylenol -) 650 mg PO Q6H PRN PRN Reason: FEVER OR PAIN Last Admin: 05/19/16 11:03 Dose: 650 mg Carbidopa/Levodopa (Sinemet 25/100 -) 1 each PO TID [facility] Last Admin: 05/23/16 06:09 Dose: 1 each Docusate Sodium (Colace -) 100 mg PO BID PRN PRN Reason: CONSTIPATION Last Admin: 05/23/16 06:09 Dose: 100 mg Heparin Sodium (Porcine) (Heparin -) 1,000 unit IVPUSH PRN PRN PRN Reason: Heparin Heparin Sodium (Porcine) (Heparin -) 5,000 unit IVPUSH PRN PRN Last Admin: 05/21/16 03:30 Dose: 5,000 unit Ceftriaxone Sodium (Rocephin 2gm Ivpb (Pre-Docked)) 100 mls @ 200 mls/hr IVPB DAILY [facility] Last Admin: 05/22/16 11:04 Dose: 200 mls/hr Pantoprazole Sodium (Protonix 40mg Ivpb (Pre-Docked)) 100 mls @ 200 mls/hr IVPB BID [facility] Last Admin: 05/22/16 22:07 Dose: 200 mls/hr Heparin Sodium/Dextrose (Heparin Infusion -) 500 mls @ 20 mls/hr IVPB TITR BLESSING ; 1,000 UNITS/HR PRN Reason: Protocol Last Admin: 05/22/16 14:01 Dose: 19 mls/hr Metoprolol Succinate (Toprol Xl -) 25 mg PO DAILY [facility] Last Admin: 05/22/16 11:02 Dose: 25 mg Morphine Sulfate (Morphine Injection -) 1 mg IVPUSH Q4H PRN PRN Reason: PAIN Last Admin: 05/22/16 15:58 Dose: 1 mg Ondansetron HCl (Zofran Injection) 4 mg IVPB Q6H PRN PRN Reason: NAUSEA Oxybutynin Chloride (Ditropan -) 5 mg PO BID [facility] Last Admin: 05/22/16 22:07 Dose: 5 mg Warfarin Sodium (Coumadin -) 2 mg PO DAILY@1800 [facility] - Objective Vital Signs: Vital Signs Temperature 99.2 F 05/22/16 22:00 Pulse Rate 97 H 05/22/16 22:00 Respiratory Rate 18 05/22/16 22:00 Blood Pressure 150/80 05/22/16 22:00 O2 Sat by Pulse Oximetry (%) 94 L 05/22/16 21:00 Cardiovascular: Yes: WNL Respiratory: Yes: WNL Gastrointestinal: Yes: WNL Labs: CBC, BMP 05/23/16 06:35 05/21/16 Unknown INR, PTT INR 1.51 (0.82-1.09) H 05/23/16 06:35 Assessment/Plan (1) Trimalleolar fracture of ankle, closed CAST IN PLACE [facility] Code(s): S82.853A - DISPLACED TRIMALLEOLAR FRACTURE OF UNSP LOWER LEG, INIT Qualifiers: Encounter type: initial encounter Laterality: right Qualified Code( s): S82.851A - Displaced trimalleolar fracture of right lower leg, initial encounter for closed fracture (2) Urinary tract infection ABX PER ID WBC 15 -> 17 Code(s): N39.0 - URINARY TRACT INFECTION, SITE NOT SPECIFIED Qualifiers: Urinary tract infection type: site unspecified Hematuria presence: without hematuria Qualified Code(s): N39.0 - Urinary tract infection, site not specified (3) Bimalleolar ankle fracture Code(s): S82.843A - DISPLACED BIMALLEOLAR FRACTURE OF UNSP LOWER LEG, INIT (4) Atrial fibrillation ON COUMADIN AND HEPARIN MONITOR INR---1.5--INCREASE COUMADIN TO 2 MG-> MONITOR Code(s): I48.91 - UNSPECIFIED ATRIAL FIBRILLATION (5) Diabetes Code(s): E11.9 - TYPE 2 DIABETES MELLITUS WITHOUT COMPLICATIONS Qualifiers: Diabetes mellitus complication status: with kidney complications Diabetes mellitus complication detail: with chronic kidney disease (6) Rectal bleed HGB 7 -> 10 S/P pRBC GI ON CASE Code(s): K62.5 - HEMORRHAGE OF ANUS AND RECTUM (7) Anemia Code(s): D64.9 - ANEMIA, UNSPECIFIED Qualifiers: Other causes of anemia: acute posthemorrhagic (8) Dementia Code(s): F03.90 - UNSPECIFIED DEMENTIA WITHOUT BEHAVIORAL DISTURBANCE (9) CVA, old, cognitive deficits Code(s): I69.31 - COGNITIVE DEFICITS FOLLOWING CEREBRAL INFARCT * DO NOT USE * CHAPERONE MALIK
[2016-05-23] MEDS: HEPARIN INFUSION - 500 ML IVPB SCH ×3 (10:15→18:23)
[2016-05-23] MEDS: PANTOPRAZOLE SODIUM 100 ML IVPB SCH ×2 (10:20→22:22)
[2016-05-23] MEDS: HEPARIN NA (PORCINE) 5,000 UNITS/ML 1ML VIAL IVPUSH PRN ×2 (10:21→19:15)
[2016-05-23] MEDS: METOPROLOL SUCCINATE 25 MG TAB.SR.24H (FP) PO SCH (11:35)
[2016-05-23] MEDS: OXYBUTYNIN CHLORIDE 5 MG TABLET PO SCH ×2 (11:35→22:22)
--- NOTE | 2016-05-23 11:39 | PN ---
Progress Note, Physician History of Present Illness: No c/o leg pain No fever/ chills - Current Medication List Current Medications: Active Medications Acetaminophen (Tylenol -) 650 mg PO Q6H PRN PRN Reason: FEVER OR PAIN Last Admin: 05/19/16 11:03 Dose: 650 mg Carbidopa/Levodopa (Sinemet 25/100 -) 1 each PO TID [facility] Last Admin: 05/23/16 06:09 Dose: 1 each Docusate Sodium (Colace -) 100 mg PO BID PRN PRN Reason: CONSTIPATION Last Admin: 05/23/16 06:09 Dose: 100 mg Heparin Sodium (Porcine) (Heparin -) 1,000 unit IVPUSH PRN PRN PRN Reason: Heparin Last Admin: 05/23/16 10:21 Dose: 1,000 unit Heparin Sodium (Porcine) (Heparin -) 5,000 unit IVPUSH PRN PRN Last Admin: 05/21/16 03:30 Dose: 5,000 unit Ceftriaxone Sodium (Rocephin 2gm Ivpb (Pre-Docked)) 100 mls @ 200 mls/hr IVPB DAILY [facility] Last Admin: 05/22/16 11:04 Dose: 200 mls/hr Pantoprazole Sodium (Protonix 40mg Ivpb (Pre-Docked)) 100 mls @ 200 mls/hr IVPB BID [facility] Last Admin: 05/23/16 10:20 Dose: 200 mls/hr Heparin Sodium/Dextrose (Heparin Infusion -) 500 mls @ 20 mls/hr IVPB TITR BLESSING ; 1,000 UNITS/HR PRN Reason: Protocol Last Admin: 05/22/16 14:01 Dose: 19 mls/hr Metoprolol Succinate (Toprol Xl -) 25 mg PO DAILY [facility] Last Admin: 05/23/16 11:35 Dose: 25 mg Morphine Sulfate (Morphine Injection -) 1 mg IVPUSH Q4H PRN PRN Reason: PAIN Last Admin: 05/22/16 15:58 Dose: 1 mg Ondansetron HCl (Zofran Injection) 4 mg IVPB Q6H PRN PRN Reason: NAUSEA Oxybutynin Chloride (Ditropan -) 5 mg PO BID [facility] Last Admin: 05/23/16 11:35 Dose: 5 mg Warfarin Sodium (Coumadin -) 2 mg PO DAILY@1800 [facility] - Objective Vital Signs: Vital Signs Temperature 98.2 F 05/23/16 10:13 Pulse Rate 98 H 05/23/16 10:13 Respiratory Rate 18 05/23/16 10:13 Blood Pressure 132/74 05/23/16 10:13 O2 Sat by Pulse Oximetry (%) 94 L 05/22/16 21:00 Constitutional: Yes: No Distress Eyes: Yes: Conjunctiva Clear Cardiovascular: Yes: Regular Rate and Rhythm, S1, S2 Respiratory: Yes: CTA Bilaterally Gastrointestinal: Yes: Normal Bowel Sounds, Soft. No: Tenderness Extremities: Yes: Other (hard cast in place LE) Labs: CBC, BMP 05/23/16 06:35 05/21/16 Unknown INR, PTT INR 1.51 (0.82-1.09) H 05/23/16 06:35 Assessment/Plan S/P R ankle fracture UTI/possible sepsis secondary to UTI OBS May substitute Augmentin 500mg po bid x48h
[2016-05-23] MEDS: CEFTRIAXONE 100 ML IVPB SCH (12:20)
[2016-05-23] MEDS: morphine CARPU-JECT 2 MG/1 ML DISP.SYRIN IVPUSH PRN (13:54)
--- NOTE | 2016-05-23 18:25 | PN ---
Progress Note (short form) - Note Progress Note: GASTROENTEROLOGY SPOKE WITH FAMILY THIS AM THEY HAVE SPOKEN WITH DR RIDER. DR RIDER CALLED ME AND TOLD ME FAMILY AGREED TO EGD AND FLEXIBLE SIGMOIDOSCOPY. I HAVE PLACED HER ON THE ENDO SCHEDULE FOR 12 NOON MONDAY. NPO P 6 AM, FLEET ENEMAS AND HOLD HEPARIN AT 9 AM. RISKS AND BENEFITS ALREADY DISCUSSED WITH FAMILY LAST WEEK CLAUDIA WYNNE MD Problem List - Problems (1) Rectal bleed Code(s): K62.5 - HEMORRHAGE OF ANUS AND RECTUM (2) Supratherapeutic INR Code(s): R79.1 - ABNORMAL COAGULATION PROFILE (3) Frequent falls Code(s): R29.6 - REPEATED FALLS (4) Anemia Code(s): D64.9 - ANEMIA, UNSPECIFIED Qualifiers: Qualified Code(s): D62 - Acute posthemorrhagic anemia (5) Trimalleolar fracture of ankle, closed Code(s): S82.853A - DISPLACED TRIMALLEOLAR FRACTURE OF UNSP LOWER LEG, INIT Qualifiers: Qualified Code(s): S82.851A - Displaced trimalleolar fracture of right lower leg, initial encounter for closed fracture (6) Urinary tract infection Code(s): N39.0 - URINARY TRACT INFECTION, SITE NOT SPECIFIED Qualifiers: Qualified Code(s): N39.0 - Urinary tract infection, site not specified (7) Atrial fibrillation Code(s): I48.91 - UNSPECIFIED ATRIAL FIBRILLATION
[2016-05-24 00:07] LABS: A/G RATIO 0.6 (0.7-1.7); ALBUMIN 2.2 g/dL (2.9-4.4); ALPHA-1-GLOBULIN 0.4 g/dL (0.0-0.4); GAMMA GLOBULIN 1.5 g/dL (0.4-1.8); GLOBULIN, TOTAL 4.1 g/dL (2.2-3.9); M-SPIKE Not Observed g/dL (Not Observed); TOTAL PROTEIN 6.3 g/dL (6.0-8.5)
[2016-05-24] MEDS: CARBIDOPA/LEVODOPA 25/100 TABLET (FP) PO SCH ×3 (06:43→23:20)
[2016-05-24 07:55] LABS: INR 1.5 (0.82-1.09); PROTHROMBIN TIME (PATIENT) 16.6 SEC (9.98-11.88)
[2016-05-24 08:11] LABS: ANION GAP 3 (8-16); CALCIUM 7.9 mg/dL (8.5-10.1); CO2 26 mmol/L (21-32); GLUCOSE,RANDOM 178 mg/dL (74-106)
[2016-05-24 08:12] LABS: MCH 28.9 pg (25.7-33.7); MCHC 33.7 g/dl (32.0-36.0); MEAN CELL VOLUME 85.6 fl (80-96); MEAN PLT VOLUME 7.8 fl (7.5-11.1); PLATELET COUNT 341 K/MM3 (134-434); RDW 14.8 % (11.6-15.6); WHITE BLOOD COUNT 23.4 K/mm3 (4.0-10.0)
[2016-05-24 08:17] LABS: ALK PHOS 146 U/L (45-117); BILIRUBIN,TOTAL 1.3 mg/dL (0.2-1.0); CREATININE 0.8 mg/dL (0.55-1.02); SGOT/AST 23 U/L (15-37); SGPT/ALT 8 U/L (12-78); TOT PROT 6.3 g/dl (6.4-8.2)
[2016-05-24] MEDS: METOPROLOL SUCCINATE 25 MG TAB.SR.24H (FP) PO SCH (09:05)
[2016-05-24] MEDS: OXYBUTYNIN CHLORIDE 5 MG TABLET PO SCH ×2 (09:05→23:21)
[2016-05-24] MEDS: PANTOPRAZOLE SODIUM 100 ML IVPB SCH (09:06)
[2016-05-24] MEDS ORDERED: SODIUM PHOSPHATE/NA BIPHOS 133 ML ENEMA PR ONE ×2 (10:00→11:00)
[2016-05-24 11:10] LABS: METAMYELOCYTE 1 % (0-2)
[2016-05-24] MEDS: SODIUM CHLORIDE 1,000 ML IV SCH (12:04)
[2016-05-24] MEDS ORDERED: PROPOFOL 20 ML ONE (12:40)
[2016-05-24] MEDS ORDERED: LIDOCAINE HCL/PF 1% SDV 5ML VIAL ONE (12:40)
--- NOTE | 2016-05-24 14:42 | PN ---
Progress Note (short form) - Note Progress Note: GASTROENTEROLOGY SEE ENDO REPORT AWAIT BIOPSY REPORT RESUME HEPARIN TOMORROW NIGHT WITHOUT BOLUS ID AC TO BE CONTINUED POSSIBLE C DIFF AWAIT BIOPSY REPORT RECTAL ULCERATION MAY BE RELATED TO CONTIPATION/ STERORAL ULCER TREAT WITH MESALAMINE SUPPOSITORY CLAUDIA CARRASQUILLO MD Problem List - Problems (1) Rectal bleed Code(s): K62.5 - HEMORRHAGE OF ANUS AND RECTUM (2) Supratherapeutic INR Code(s): R79.1 - ABNORMAL COAGULATION PROFILE (3) Frequent falls Code(s): R29.6 - REPEATED FALLS (4) Anemia Code(s): D64.9 - ANEMIA, UNSPECIFIED Qualifiers: Qualified Code(s): D62 - Acute posthemorrhagic anemia (5) Trimalleolar fracture of ankle, closed Code(s): S82.853A - DISPLACED TRIMALLEOLAR FRACTURE OF UNSP LOWER LEG, INIT Qualifiers: Qualified Code(s): S82.851A - Displaced trimalleolar fracture of right lower leg, initial encounter for closed fracture (6) Urinary tract infection Code(s): N39.0 - URINARY TRACT INFECTION, SITE NOT SPECIFIED Qualifiers: Qualified Code(s): N39.0 - Urinary tract infection, site not specified (7) Atrial fibrillation Code(s): I48.91 - UNSPECIFIED ATRIAL FIBRILLATION
[2016-05-24] MEDS ORDERED: FENTANYL PATCH WASTE MC PRN (16:10)
[2016-05-24] MEDS ORDERED: fentaNYL 12mcg/hr PATCH.TD72 TD SCH (16:15)
--- NOTE | 2016-05-24 16:15 | PN ---
Progress Note, Physician Chief Complaint: awake , confused egd/colonoscopy complete no active bleeds possible Cdiff? await cultures - Current Medication List Current Medications: Active Medications Acetaminophen (Tylenol -) 650 mg PO Q6H PRN PRN Reason: FEVER OR PAIN Last Admin: 05/19/16 11:03 Dose: 650 mg Amoxicillin/Clavulanate Potassium (Augmentin - 500mg Tablet) 1 tab PO BID@0800, 1730 [facility] Carbidopa/Levodopa (Sinemet 25/100 -) 1 each PO TID [facility] Last Admin: 05/24/16 15:43 Dose: Not Given Docusate Sodium (Colace -) 100 mg PO BID PRN PRN Reason: CONSTIPATION Last Admin: 05/23/16 06:09 Dose: 100 mg Fentanyl (Duragesic 12mcg Patch -) 1 patch TD Q72H [facility] Stop: 05/31/16 16:11 Heparin Sodium (Porcine) (Heparin -) 1,000 unit IVPUSH PRN PRN PRN Reason: Heparin Last Admin: 05/23/16 19:15 Dose: 1,000 unit Heparin Sodium (Porcine) (Heparin -) 5,000 unit IVPUSH PRN PRN Last Admin: 05/21/16 03:30 Dose: 5,000 unit Heparin Sodium/Dextrose (Heparin Infusion -) 500 mls @ 20 mls/hr IVPB TITR BLESSING ; 1,000 UNITS/HR PRN Reason: Protocol Last Titration: 05/23/16 19:14 Dose: 1,150 units/hr Sodium Chloride (Normal Saline -) 1,000 mls @ 83 mls/hr IV [facility] Last Admin: 05/24/16 12:04 Dose: 83 mls/hr Lactobacillus Acidophilus (Bacid -) 1 tab PO DAILY [facility] Mesalamine (Canasa Suppository -) 1,000 mg RC DAILY [facility] Metoprolol Succinate (Toprol Xl -) 25 mg PO DAILY [facility] Last Admin: 05/24/16 09:05 Dose: 25 mg Miscellaneous (Duragesic Patch Waste) 1 each MC PRN PRN PRN Reason: PAIN Ondansetron HCl (Zofran Injection) 4 mg IVPB Q6H PRN PRN Reason: NAUSEA Oxybutynin Chloride (Ditropan -) 5 mg PO BID [facility] Last Admin: 05/24/16 09:05 Dose: 5 mg Ranitidine HCl (Zantac -) 150 mg PO BID [facility] - Objective Vital Signs: Vital Signs Temperature 98.7 F 05/24/16 15:30 Pulse Rate 116 H 05/24/16 15:30 Respiratory Rate 22 05/24/16 15:30 Blood Pressure 120/63 05/24/16 15:30 O2 Sat by Pulse Oximetry (%) 92 L 05/24/16 15:30 Constitutional: Yes: Mild Distress Eyes: Yes: WNL HENT: Yes: WNL Neck: Yes: WNL Cardiovascular: Yes: Pulse Irregular Respiratory: Yes: WNL Gastrointestinal: Yes: WNL Genitourinary: Yes: Incontinence Musculoskeletal: Yes: Joint Swelling, Muscle Pain, Muscle Weakness Extremities: Yes: Other Edema: Yes Peripheral Pulses WNL: Yes Integumentary: Yes: WNL Wound/Incision: Yes: Clean/Dry Neurological: Yes: Pre-Existing Deficit, Unsteady Gait, Weakness ...Motor Strength: LLE, RLE Psychiatric: Yes: Other Labs: CBC, BMP 05/24/16 06:25 05/24/16 06:25 INR, PTT INR 1.50 (0.82-1.09) H 05/24/16 06:25 Problem List - Problems (1) Trimalleolar fracture of ankle, closed Code(s): S82.853A - DISPLACED TRIMALLEOLAR FRACTURE OF UNSP LOWER LEG, INIT Qualifiers: Qualified Code(s): S82.851A - Displaced trimalleolar fracture of right lower leg, initial encounter for closed fracture (2) Urinary tract infection Code(s): N39.0 - URINARY TRACT INFECTION, SITE NOT SPECIFIED Qualifiers: Qualified Code(s): N39.0 - Urinary tract infection, site not specified (3) Bimalleolar ankle fracture Code(s): S82.843A - DISPLACED BIMALLEOLAR FRACTURE OF UNSP LOWER LEG, INIT (4) Atrial fibrillation Code(s): I48.91 - UNSPECIFIED ATRIAL FIBRILLATION (5) Diabetes Code(s): E11.9 - TYPE 2 DIABETES MELLITUS WITHOUT COMPLICATIONS (6) Rectal bleed Code(s): K62.5 - HEMORRHAGE OF ANUS AND RECTUM (7) Anemia Code(s): D64.9 - ANEMIA, UNSPECIFIED Qualifiers: Qualified Code(s): D62 - Acute posthemorrhagic anemia (8) Dementia Code(s): F03.90 - UNSPECIFIED DEMENTIA WITHOUT BEHAVIORAL DISTURBANCE (9) CVA, old, cognitive deficits Code(s): I69.31 - COGNITIVE DEFICITS FOLLOWING CEREBRAL INFARCT * DO NOT USE * Assessment/Plan AWAIT CDIFF CULTURES NIECES WERE BEDSIDE I DISCUSSED QUALITY OF LIFE AND ADVANCED DIRECTIVES I RECOMMENDING NOT TO RESTART COUMADIN BECAUSE THE RISK OUTWEIGHS THE BENEFIT WITH FREQUENT FALLS. ASA 81 MG DAILY, RATE CONTROL FOR AFIB SNF TO [facility] PER FAMILY TOMORROW
--- NOTE | 2016-05-24 17:18 | PN ---
Progress Note, Physician Chief Complaint: afib, rectal bleeding, fall History of Present Illness: denies sob, orhthopnea, cp, palpit ex-cigs - Current Medication List Current Medications: Active Medications Acetaminophen (Tylenol -) 650 mg PO Q6H PRN PRN Reason: FEVER OR PAIN Last Admin: 05/19/16 11:03 Dose: 650 mg Amoxicillin/Clavulanate Potassium (Augmentin - 500mg Tablet) 1 tab PO BID@0800, 1730 [facility] Carbidopa/Levodopa (Sinemet 25/100 -) 1 each PO TID [facility] Last Admin: 05/24/16 15:43 Dose: Not Given Docusate Sodium (Colace -) 100 mg PO BID PRN PRN Reason: CONSTIPATION Last Admin: 05/23/16 06:09 Dose: 100 mg Fentanyl (Duragesic 12mcg Patch -) 1 patch TD Q72H [facility] Stop: 05/31/16 16:11 Heparin Sodium (Porcine) (Heparin -) 1,000 unit IVPUSH PRN PRN PRN Reason: Heparin Last Admin: 05/23/16 19:15 Dose: 1,000 unit Heparin Sodium (Porcine) (Heparin -) 5,000 unit IVPUSH PRN PRN Last Admin: 05/21/16 03:30 Dose: 5,000 unit Heparin Sodium/Dextrose (Heparin Infusion -) 500 mls @ 20 mls/hr IVPB TITR BLESSING ; 1,000 UNITS/HR PRN Reason: Protocol Last Titration: 05/23/16 19:14 Dose: 1,150 units/hr Sodium Chloride (Normal Saline -) 1,000 mls @ 83 mls/hr IV ASDIR [facility] Last Admin: 05/24/16 12:04 Dose: 83 mls/hr Metronidazole (Flagyl 500mg Premixed Ivpb -) 100 mls @ 100 mls/hr IVPB Q8H-IV [facility] Lactobacillus Acidophilus (Bacid -) 1 tab PO DAILY [facility] Mesalamine (Canasa Suppository -) 1,000 mg RC DAILY [facility] Metoprolol Succinate (Toprol Xl -) 25 mg PO DAILY [facility] Last Admin: 05/24/16 09:05 Dose: 25 mg Metronidazole (Flagyl -) 500 mg PO TID [facility] Miscellaneous (Duragesic Patch Waste) 1 each MC PRN PRN PRN Reason: PAIN Ondansetron HCl (Zofran Injection) 4 mg IVPB Q6H PRN PRN Reason: NAUSEA Oxybutynin Chloride (Ditropan -) 5 mg PO BID [facility] Last Admin: 05/24/16 09:05 Dose: 5 mg Ranitidine HCl (Zantac -) 150 mg PO BID [facility] - Objective Vital Signs: Vital Signs Temperature 98.7 F 05/24/16 15:30 Pulse Rate 116 H 05/24/16 15:30 Respiratory Rate 22 05/24/16 15:30 Blood Pressure 120/63 05/24/16 15:30 O2 Sat by Pulse Oximetry (%) 92 L 05/24/16 15:30 Constitutional: Yes: No Distress, Calm Eyes: No: Sclera Icterus HENT: No: Nasal Congestion Cardiovascular: Yes: Regular Rate and Rhythm, S1, S2, Other (PMI non diplaced). No: JVD, Gallop, Murmur Respiratory: Yes: CTA Bilaterally. No: Accessory Muscle Use, Rales, Wheezes Gastrointestinal: Yes: Normal Bowel Sounds, Soft. No: Tenderness Musculoskeletal: Yes: Other (No kyphosis) Extremities: No: Cold Edema: No Integumentary: No: Jaundice Neurological: Yes: Alert, Oriented (xyear, family members names but not president or where she lives) Psychiatric: No: Agitated Labs: CBC, BMP 05/24/16 06:25 05/24/16 06:25 INR, PTT INR 1.50 (0.82-1.09) H 05/24/16 06:25 Assessment/Plan CXR: no acute pathology echo 2012: nl lv/rv. mod benito. - JON measured at 0.9, but PG and MG only , mod MAC. mod MR/TR. RVSP 46 89 yo with h/o dementia, cva, htn, niddm, afib on coumadin, as, mod mr, mild ar here s/p fall c/b RLE fracture, also noted to have uti. pre-operative clearance/RLE fracture. - patient with RCRI of 1, but with advanced age and poor functional status. Estimated risk of nnamdi-operative CV events is intermediate. Family counseled on risk. Plan is now medical management. afib with h/o CVA: - Reasonable HR control given fracture/infection. Con't metoprolol. - hi CHADS-VASC with prior CVA (7) - dr rivera notes appreciated: pt with frequent falls now s/p traumatic fracture of leg--hence it is felt that risks of serious bleeding from AC > benefits - she is partially A and O (as above) and exhibits understanding of recent events, and niece/nephew name, hence does not appear to have severe dementia-- tells me she's fallen 2-3 x in past 1 year - i advised her of the risks of AC and that we plan to hold it for now - i disc'd with pt that there is an option that requires invasive procedure ( i.e. left atrial appendage closure Watchman device) and mult trips to [place] for procedure and f/u TEEs and visits, but would allow her to be off AC and also prevent recurrent CVA risk - she verbalized understanding but states she has no interest in invasive procedures and prefers accept some residual CVA risk - i rec'd we cont ASA 81 only, no AC and if she ends up in supervised environment ([facility] or NH) and seems to be at no ongoing falls risk in f/u with dr rivera, we can reconsider AC at that time anemia, rectal bleeding: -s/p PRBCs here -EGD/FOC reports appreciated, dr hartman note reviewed--no bleeding culprit on EGD; rectal ulcerations found and ? pseudomembrane--cleared to resume AC 05/25 in evening if plan is to resume HTN - well controlled - Con't metoprolol. home low dose amlodipine and ramipril on hold here (the latter due to JESSICA on admit) history of mod mr, mild ar, mild , pHTN: - JVD slightly elevated on exam on 05/20, but patient saturating well and asymptomatic. Recent JESSICA which improved with IVF so no diuresis ordered. - receiving IVF (83cc/hr) - CXR repeated 05/24--no signs of congestion - HR control as above. uti, - Continue abx per pmd/ID JESSICA - resolved. NIDDM - per pmd. - currently off statin, reasonable given dementia and age. Risk/benefit can be further addressed as outpatient
[2016-05-24] MEDS: METRONIDAZOLE 500 MG PREMIXED 100 ML IVPB SCH (18:24)
[2016-05-24] MEDS: LACTOBACILLUS ACIDOPHILUS 1 EACH TAB (FP) PO SCH (18:24)
[2016-05-24] MEDS: AMOX TR/POT CLAV 500MG/125MG TABLETS (FP) PO SCH (18:39)
[2016-05-24] MEDS: MESALAMINE 1000 MG/SUPP.RECT SUPP RC SCH (18:39)
[2016-05-24] MEDS ORDERED: PT OWN MED DRAWER 7, Y5N ONE (21:57)
[2016-05-24] MEDS: metroNIDAZOLE 250 MG TABLET PO SCH (23:20)
[2016-05-24] MEDS: RANITIDINE HCL 150 MG TABLET (FP) PO SCH (23:20)
[2016-05-25] MEDS: SODIUM CHLORIDE 1,000 ML IV SCH ×2 (03:01→12:00)
[2016-05-25] MEDS: METRONIDAZOLE 500 MG PREMIXED 100 ML IVPB SCH ×2 (03:02→10:13)
[2016-05-25] MEDS: metroNIDAZOLE 250 MG TABLET PO SCH ×2 (06:41→13:43)
[2016-05-25] MEDS: CARBIDOPA/LEVODOPA 25/100 TABLET (FP) PO SCH ×2 (06:41→13:43)
[2016-05-25 07:20] VITALS: TEMP 97.8
[2016-05-25 08:16] LABS: MCH 28.8 pg (25.7-33.7); MCHC 33.5 g/dl (32.0-36.0); MEAN CELL VOLUME 85.9 fl (80-96); MEAN PLT VOLUME 7.6 fl (7.5-11.1); PLATELET COUNT 288 K/MM3 (134-434); RDW 15.1 % (11.6-15.6); WHITE BLOOD COUNT 19.8 K/mm3 (4.0-10.0)
[2016-05-25 08:27] LABS: INR 1.45 (0.82-1.09); PROTHROMBIN TIME (PATIENT) 16.1 SEC (9.98-11.88)
[2016-05-25 08:54] LABS: ALBUMIN 1.9 g/dl (3.4-5.0); CALCIUM 7.5 mg/dL (8.5-10.1)
[2016-05-25 08:59] LABS: BILIRUBIN,TOTAL 1.3 mg/dL (0.2-1.0); CREATININE 0.9 mg/dL (0.55-1.02); TOT PROT 5.8 g/dl (6.4-8.2)
[2016-05-25] MEDS ORDERED: POTASSIUM CHLORIDE TABS 20 MEQ TABLET.ER (FP) PO ONE (09:18)
[2016-05-25] MEDS ORDERED: PT OWN MED DRAWER 7, Y5N ONE (09:20)
--- NOTE | 2016-05-25 09:24 | DS ---
Physical Examination Vital Signs: Vital Signs Temperature 97.8 F 05/25/16 07:18 Pulse Rate 110 H 05/25/16 07:18 Respiratory Rate 22 05/25/16 07:18 Blood Pressure 120/56 05/25/16 07:18 O2 Sat by Pulse Oximetry (%) 92 L 05/24/16 21:00 Cardiovascular: Yes: WNL Respiratory: Yes: WNL Gastrointestinal: Yes: WNL Labs: CBC, BMP 05/25/16 06:35 05/25/16 06:35 Discharge Summary Reason For Visit: UTI,TIMALLEOLAR FX OF ANKLE CLOSED Current Active Problems Anemia (Acute) CVA, old, cognitive deficits (Acute) Dementia (Acute) Frequent falls (Acute) Rectal bleed (Acute) Supratherapeutic INR (Acute) Trimalleolar fracture of ankle, closed (Acute) Urinary tract infection (Acute) Hospital Course: (1) Trimalleolar fracture of ankle, closed Code(s): S82.853A - DISPLACED TRIMALLEOLAR FRACTURE OF UNSP LOWER LEG, INIT Qualifiers: Qualified Code(s): S82.851A - Displaced trimalleolar fracture of right lower leg, initial encounter for closed fracture (2) Urinary tract infection Code(s): N39.0 - URINARY TRACT INFECTION, SITE NOT SPECIFIED Qualifiers: Qualified Code(s): N39.0 - Urinary tract infection, site not specified (3) Bimalleolar ankle fracture Code(s): S82.843A - DISPLACED BIMALLEOLAR FRACTURE OF UNSP LOWER LEG, INIT (4) Atrial fibrillation Code(s): I48.91 - UNSPECIFIED ATRIAL FIBRILLATION (5) Diabetes Code(s): E11.9 - TYPE 2 DIABETES MELLITUS WITHOUT COMPLICATIONS (6) Rectal bleed Code(s): K62.5 - HEMORRHAGE OF ANUS AND RECTUM (7) Anemia Code(s): D64.9 - ANEMIA, UNSPECIFIED Qualifiers: Qualified Code(s): D62 - Acute posthemorrhagic anemia (8) Dementia Code(s): F03.90 - UNSPECIFIED DEMENTIA WITHOUT BEHAVIORAL DISTURBANCE (9) CVA, old, cognitive deficits Code(s): I69.31 - COGNITIVE DEFICITS FOLLOWING CEREBRAL INFARCT * DO NOT USE * Assessment/Plan NIECES WERE BEDSIDE I DISCUSSED QUALITY OF LIFE AND ADVANCED DIRECTIVES I RECOMMENDING NOT TO RESTART COUMADIN BECAUSE THE RISK OUTWEIGHS THE BENEFIT WITH FREQUENT FALLS. ASA 81 MG DAILY, RATE CONTROL FOR AFIB AC STARTED AT LOW DOSE 2/2 BEING CLOSELY MONITORED AT SNF SNF TO DIPTI SHAH PER FAMILY CASE D/W RN -> C DIFF NOT COLLECTED. CAN BE DONE AT SNF. DISCHARGE 1. F/U GI W/U RESULTS 2. NEEDS GI CLEARANCE BRICK TESTER FM Condition: Stable - Instructions Referrals: Dipti Shah [Outside] Disposition: HOME - Home Medications Comprehensive Discharge Medication List: Ambulatory Orders Carbidopa/Levodopa [Carbidopa-Levo 25-100 Tab] 1 each PO TID 02/26/14 Glipizide [Glipizide ER] 5 mg PO DAILY 02/26/14 Metformin HCl [Glucophage -] 500 mg PO DAILY 02/26/14 Metoprolol Succinate [Toprol XL -] 25 mg PO DAILY 02/26/14 Oxybutynin Chloride [Oxybutynin Chloride ER] 5 mg PO DAILY 02/26/14 Ramipril [Altace] 2.5 mg PO DAILY 02/26/14 Amlodipine Besylate [Norvasc -] 2.5 mg PO DAILY #30 tablet 03/03/14 Warfarin Na [Coumadin -] 3 mg PO SUMOTUWETHSA 05/18/16 Warfarin Na [Coumadin] 4 mg PO FR 05/18/16
[2016-05-25] MEDS ORDERED: ASPIRIN COATED 81 MG TABLET.EC PO SCH (10:00)
[2016-05-25] MEDS: METOPROLOL SUCCINATE 25 MG TAB.SR.24H (FP) PO SCH (10:14)
[2016-05-25] MEDS: RANITIDINE HCL 150 MG TABLET (FP) PO SCH (10:14)
[2016-05-25] MEDS: LACTOBACILLUS ACIDOPHILUS 1 EACH TAB (FP) PO SCH (10:14)
[2016-05-25] MEDS: OXYBUTYNIN CHLORIDE 5 MG TABLET PO SCH (10:14)
[2016-05-25] MEDS: AMOX TR/POT CLAV 500MG/125MG TABLETS (FP) PO SCH (12:07)
[2016-05-25] MEDS: MESALAMINE 1000 MG/SUPP.RECT SUPP RC SCH (12:08)
[2016-05-25 16:26] VITALS: BP 142/60; PULSE 100
--- NOTE | 2016-05-26 13:06 | PATH ---
Surgical Pathology Report Patient Name: ELIJAH CRANDALL [facility]. Rec. #: [id number] /Age/Gender: 1925 (Age: 89) / F Account: [id number] Location: [address] [place] [address]/[facility] Taken: 05/24/2016 Received: 05/25/2016 Reported: 05/26/2016 Physicians: Bebo Miranda M.D. Specimen(s) Received A: BX DUODENAL BULB B: BX ANTRUM C: BX DESCENDING COLON D: BX RECTOSIGMOID Clinical History Guaiac positive stool, rectal bleeding on anticoagulation Hiatal hernia, erosive gastritis, duodenitis, fecal impaction, colitis, proctitis, extrinsic to compression, rule out ischemia and C. diff Final Diagnosis A. DUODENUM, BULB, BIOPSY: DUODENAL MUCOSA WITH CHRONIC INFLAMMATION AND EXTENSIVE GASTRIC METAPLASIA CONSISTENT WITH PEPTIC DUODENITIS AND FOCALLY SUGGESTIVE OF GASTRIC HETEROTOPIA. NO HISTOLOGIC EVIDENCE OF GLUTEN SENSITIVE ENTEROPATHY (CELIAC DISEASE). B. STOMACH, ANTRUM, BIOPSY: GASTRIC ANTRAL MUCOSA WITH MODERATE CHRONIC GASTRITIS AND REACTIVE GASTROPATHY. NO INTESTINAL METAPLASIA DYSPLASIA IDENTIFIED. IMMUNOSTAIN FOR H. PYLORI IS NEGATIVE FOR ORGANISMS. C. COLON, DESCENDING, COLITIS, BIOPSY: COLONIC MUCOSA WITH INTERSTITIAL ACTIVE COLITIS WITH VASCULAR CONGESTION (SEE COMMENT). NO EVIDENCE OF SIGNIFICANT ARCHITECTURAL DISTORTION, GRANULOMATA OR DYSPLASIA. Comment: The histologic findings, while non-specific, may be seen in ischemic injury in proper clinical and endoscopic settings. Infections and drug/toxin injury may also cause similar histologic changes; however, well-developed C. Difficile related colitis usually shows more necroinflammatory changes. Clinical and endoscopic correlations and correlations with microbiology findings are suggested. D. COLON, RECTOSIGMOID, BIOPSY: COLONIC MUCOSA WITH ACTIVE COLITIS WITH FOCAL CRYPTITIS, NECROINFLAMMATORY MEMBRANE FORMATION, VASCULAR CONGESTION AND FOCAL HEMORRHAGE (SEE COMMENT). NO EVIDENCE OF GRANULOMATA OR DYSPLASIA. Comment: The histologic findings in this specimen, while not entirely specific, may represent an ischemic injury or C. difficile related colitis, although, given prominent vascular congestion and focal mucosal hemorrhage ischemia is more likely. Clinical and endoscopic correlations and correlations with microbiology findings are suggested. Electronically Signed Antonio Peters M.D. Gross Description A. Received in formalin, labeled "biopsy duodenal bulb" is a de jesus, irregular portion of soft tissue measuring 0.3 cm in greatest dimension. The specimen is submitted in toto in one cassette. B. Received in formalin, labeled "biopsy antrum" is a de jesus, irregular portion of soft tissue measuring 0.3 cm in greatest dimension. The specimen is submitted in toto in one cassette. C. Received in formalin, labeled "biopsy descending colon" is a de jesus, irregular portion of soft tissue measuring 0.3 cm in greatest dimension. The specimen is submitted in toto in one cassette. D. Received in formalin, labeled "biopsy rectosigmoid" is a de jesus, irregular portion of soft tissue measuring 0.3 cm in greatest dimension. The specimen is submitted in toto in one cassette. 05/25/2016 [facility]05/25/2016
== END 2016-05-25 16:56 | disposition home or self-care (01) | DRG 562 ==
LOC: JER 10:47 → JERBED 14:58 → J5S 17:40
PROVIDERS: ADMIT Family Medicine; ATTEND Family Medicine
PROC: 2W3QX2Z Immobilization of Right Lower Leg using Cast (ICD-10-PCS; 2016-05-19)
PROC: 30233N1 Transfusion of Nonautologous Red Blood Cells into Peripheral Vein, Percutaneous Approach (ICD-10-PCS; 2016-05-22)
PROC: 0DBP8ZX Excision of Rectum, Via Natural or Artificial Opening Endoscopic, Diagnostic (ICD-10-PCS; 2016-05-24)
PROC: 0DBN8ZX Excision of Sigmoid Colon, Via Natural or Artificial Opening Endoscopic, Diagnostic (ICD-10-PCS; 2016-05-24)
PROC: 0DB98ZX Excision of Duodenum, Via Natural or Artificial Opening Endoscopic, Diagnostic (ICD-10-PCS; principal; 2016-05-24 12:30)
DX: S82.851A Displaced trimalleolar fracture of right lower leg, initial encounter for closed fracture (principal); A41.89 Other specified sepsis; N39.0 Urinary tract infection, site not specified; K62.5 Hemorrhage of anus and rectum; N17.9 Acute kidney failure, unspecified; I48.91 Unspecified atrial fibrillation; E11.9 Type 2 diabetes mellitus without complications; F03.90 Unspecified dementia, unspecified severity, without behavioral disturbance, psychotic disturbance, mood disturbance, and anxiety; W18.39XA Other fall on same level, initial encounter; Y93.89 Activity, other specified; Y92.098 Other place in other non-institutional residence as the place of occurrence of the external cause; E86.0 Dehydration; I69.818 Other symptoms and signs involving cognitive functions following other cerebrovascular disease; D64.9 Anemia, unspecified; I27.2 Other secondary pulmonary hypertension; Z87.891 Personal history of nicotine dependence; K31.9 Disease of stomach and duodenum, unspecified; K29.60 Other gastritis without bleeding; K44.9 Diaphragmatic hernia without obstruction or gangrene; K57.30 Diverticulosis of large intestine without perforation or abscess without bleeding; K64.8 Other hemorrhoids
CPT/HCPCS: 36415; 36430; 71010-TC; 73562-TC-RT; 73610-TC-RT; 80048; 80053; 81003; 81015; 82272; 82550; 82553; 82607; 82728; 82747; 82784; 83540; 83550; 84155; 84165; 84439; 84443; 84484; 85014; 85025; 85027; 85610; 85730; 86334; 86850; 86900; 86901; 86922; 87040; 87086; 87186; 88305-TC; 93005; 93010; 93306-TC; 93971-TC; 97116-GP; 97162-PG; 99283-25; J1644; P9038; P9058

== ENCOUNTER 2016-06-02 13:45 | Inpatient (IN) | payer OTHER ==
[2016-06-02 14:13] VITALS: BMI 34.7
[2016-06-02 14:50] LABS: VENOUS BLOOD GAS HCO3 31.3 meq/L (22-29); VENOUS PH 7.43 (7.31-7.41)
[2016-06-02 14:51] LABS: BASOPHIL 0.4 % (0-2.0); EOSINOPHIL 0.9 % (0-4.5); MCH 28.5 pg (25.7-33.7); MCHC 32.4 g/dl (32.0-36.0); MEAN CELL VOLUME 88.2 fl (80-96); MEAN PLT VOLUME 7.4 fl (7.5-11.1); NEUTROPHILS 83.5 % (42.8-82.8); PLATELET COUNT 358 K/MM3 (134-434); RDW 16.3 % (11.6-15.6); WHITE BLOOD COUNT 10.4 K/mm3 (4.0-10.0)
[2016-06-02 14:55] LABS: URINE APPEARANCE CLOUDY; URINE BILIRUBIN NEGATIVE (NEGATIVE); URINE COLOR AMBER; URINE GLUCOSE (UA) NEGATIVE (NEGATIVE); URINE KETONE NEGATIVE (NEGATIVE); URINE NITRITE NEGATIVE (NEGATIVE); URINE UROBILINOGEN NEGATIVE E.U./dl (0.2-1.0)
[2016-06-02 14:56] LABS: URINE BLOOD 2+ (NEGATIVE); URINE LEUK ESTERASE 3+ (NEGATIVE); URINE PROTEIN 1+ (NEGATIVE)
[2016-06-02 15:02] LABS: GRANULAR CASTS 3 /lpf; URINE HYALINE CAST 3 /lpf; URINE MUCUS FEW; URINE RBC 22 /hpf (0-3); URINE WBC 308 /hpf (3-5)
[2016-06-02 15:22] LABS: INR 2.38 (0.82-1.09); PROTHROMBIN TIME (PATIENT) 26.7 SEC (9.98-11.88)
[2016-06-02 15:23] LABS: ALBUMIN 2.3 g/dl (3.4-5.0); ANION GAP 8 (8-16); BILIRUBIN,TOTAL 0.7 mg/dL (0.2-1.0); CALCIUM 7.8 mg/dL (8.5-10.1); CO2 32 mmol/L (21-32); CREATININE 0.6 mg/dL (0.55-1.02); GLUCOSE,RANDOM 193 mg/dL (74-106); SGOT/AST 14 U/L (15-37); SGPT/ALT 10 U/L (12-78); TOT PROT 6.7 g/dl (6.4-8.2)
[2016-06-02 15:25] LABS: ACTIVATED PTT 36.6 SECONDS (26.9-34.4); ALK PHOS 169 U/L (45-117); TROPONIN I 0.16 ng/ml (0.00-0.05)
[2016-06-02] MEDS ORDERED: SODIUM CHLORIDE 250 ML IV STA (15:31)
[2016-06-02] MEDS ORDERED: CEFTRIAXONE 1 GM in DEXTROSE 5%-WATER - 50 ML IVPB ONE (16:59)
--- NOTE | 2016-06-02 17:03 | PDOC ---
History of Present Illness - General Chief Complaint: Shortness of Breath Stated Complaint: Respiratory Time Seen by Provider: 06/02/16 14:39 History Source: Patient, Skilled Nursing Records Exam Limitations: No Limitations - History of Present Illness Initial Comments: 06/02/16 16:01 89-year-old female sent to the ED for evaluation of cough, and a positive infiltrate seen on chest x-ray that was taken recently. Patient denies chest pain, shortness of breath, abdominal pain, back pain, headache or nausea. He also denies chills or fever. As stated Chuy. zane currently on Coumadin, patient also with history of recent Right ankle fracture requiring casting. Patient also with history of CHF and is currently on Lasix. Timing/Duration: constant, getting worse Severity: moderate Associated Symptoms: reports: cough. denies: fever/chills Past History - Past Medical History Allergies/Adverse Reactions: Allergies Allergy/AdvReac Type Severity Reaction Status Date / Time No Known Allergies Allergy Verified 05/18/16 12:38 Home Medications: Ambulatory Orders Carbidopa/Levodopa [Carbidopa-Levo 25-100 Tab] 1 each PO TID 02/26/14 Acetaminophen [Tylenol .Regular Strength -] 650 mg PO Q6H PRN #0 tablet Aspirin Coated [Ecotrin -] 81 mg PO DAILY tablet.ec 05/25/16 Docusate Sodium [Colace -] 100 mg PO BID PRN #0 capsule 05/25/16 Lactobacillus Acidophilus [Bacid -] 1 tab PO DAILY tab 05/25/16 Metoprolol Succinate [Toprol XL -] 25 mg PO DAILY tab.sr.24h 05/25/16 Oxybutynin Chloride [Ditropan -] 5 mg PO BID tablet 05/25/16 Albuterol 2.5/Ipratropium 0.5 [Duoneb -] 1 neb IH QID 06/02/16 Budesonide [Pulmicort 0.5 mg Nebulizer -] 1 neb PO BID 06/02/16 Furosemide [Lasix] 40 mg PO BID 06/02/16 Loratadine 10 mg PO DAILY 06/02/16 Menthol/Zinc Oxide [Calmoseptine Ointment] 71 gm TP PRN 06/02/16 Mesalamine W/Cleansing Wipes [Rowasa 4 gm/60 ml Enema Kit] 4 gm RC HS 06/02/16 Multivitamins [Tab-A-Vit -] 1 tab PO DAILY 06/02/16 Omeprazole Magnesium [Prilosec] 20 mg PO DAILY 06/02/16 Oseltamivir Phosphate [Tamiflu] 75 mg PO DAILY 06/02/16 Vancomycin Oral Solution [Vancocin *Oral Solution*] 250 mg PO QID 06/02/16 Warfarin Sodium 4 mg PO HS 06/02/16 Cardiac Disorders: Yes (AFIB,) CVA: Yes Dementia: Yes Diabetes: Yes HTN: Yes Hypercholesterolemia: Yes Suicide Attempt (Hx): No - Immunization History Immunization Up to Date: Yes - Psycho/Social/Smoking Cessation Hx Anxiety: No Suicidal Ideation: No Smoking Status: No Smoking History: Never smoked Have you smoked in the past 12 months: No Number of Cigarettes Smoked Daily: 0 If you are a former smoker, when did you quit?: Over 20 years ago Information on smoking cessation initiated: No Hx Alcohol Use: No Drug/Substance Use Hx: No Substance Use Type: None Hx Substance Use Treatment: No Patient Lives Alone: No Review of Systems - Review of Systems Able to Perform ROS?: Yes Constitutional: No: Symptoms Reported HEENTM: No: Symptoms Reported Respiratory: Yes: Cough, Shortness of Breath Cardiac (ROS): No: Symptoms Reported ABD/GI: No: Symptoms Reported : No: Symptoms Reported Musculoskeletal: No: Symptoms Reported Integumentary: No: Symptoms Reported Neurological: No: Symptoms reported Endocrine: No: Symptoms Reported Hematologic/Lymphatic: Yes: See HPI *Physical Exam - Vital Signs Last Vital Signs Temp Pulse Resp BP Pulse Ox 98.8 F 103 H 28 H 139/81 98 06/02/16 14:50 06/02/16 14:53 06/02/16 14:50 06/02/16 14:50 06/02/16 14:53 - Physical Exam General Appearance: Yes: Nourished, Appropriately Dressed. No: Apparent Distress HEENT: positive: EOMI, ISAIAH. negative: Pale Conjunctivae Neck: positive: Supple Respiratory/Chest: positive: Rapid RR, Crackles (inspiratory to bronchial region and left lower lobe), Wheezing (mild scattered). negative: Respiratory Distress, Accessory Muscle Use, Rales Cardiovascular: positive: Regular Rhythm, Tachycardia. negative: Murmur Gastrointestinal/Abdominal: positive: Soft. negative: Tenderness Extremity: positive: Pedal Edema ( 2 + to the left lower extremity), Swelling Integumentary: positive: Normal Color, Warm, Moist Neurologic: positive: Normal Mood/Affect, Motor Strength 5/5 (moving all extremities actively) Heart Score/ECG Review - ECG Intrepretation Rhythm: Regular Rhythm (tachy at 107. No acute findings or changes from previous EKG.) ED Treatment Course - LABORATORY CBC & Chemistry Diagram: 06/05/16 05:35 06/05/16 05:35 - ADDITIONAL ORDERS Additional order review: Laboratory Results 06/02/16 06/02/16 06/02/16 14:31 14:31 14:31 INR PTT (Actin FS) VBG pH POC VBG pCO2 POC VBG pO2 Sodium 144 Potassium 4.2 D Chloride 104 Carbon Dioxide 32 D Anion Gap 8 BUN 15 Creatinine 0.6 D Creat Clearance w eGFR > 60 Random Glucose 193 H D Lactic Acid 1.209 Calcium 7.8 L Total Bilirubin 0.7 D AST 14 L D ALT 10 L D Alkaline Phosphatase 169 H Creatine Kinase 15 L Troponin I 0.16 H Total Protein 6.7 Albumin 2.3 L D Urine Color Urine Appearance Urine pH Ur Specific Crete Urine Protein Urine Glucose (UA) Urine Ketones Urine Blood Urine Nitrite Urine Bilirubin Urine Urobilinogen Ur Leukocyte Esterase Urine RBC Urine WBC Hyaline Casts Granular Casts Urine Mucus Blood Type O POSITIVE Antibody Screen Negative 06/02/16 06/02/16 06/02/16 14:31 14:31 14:20 INR 2.38 H D PTT (Actin FS) 36.6 H D VBG pH 7.43 H POC VBG pCO2 48.0 POC VBG pO2 58.0 H Sodium Potassium Chloride Carbon Dioxide Anion Gap BUN Creatinine Creat Clearance w eGFR Random Glucose Lactic Acid Calcium Total Bilirubin AST ALT Alkaline Phosphatase Creatine Kinase Troponin I Total Protein Albumin Urine Color Nataly Urine Appearance Cloudy Urine pH 5.0 D Ur Specific Crete 1.024 Urine Protein 1+ H D Urine Glucose (UA) Negative Urine Ketones Negative Urine Blood 2+ H Urine Nitrite Negative Urine Bilirubin Negative Urine Urobilinogen Negative Ur Leukocyte Esterase 3+ H Urine RBC 22 Urine WBC 308 Hyaline Casts 3 Granular Casts 3 Urine Mucus Few Blood Type Antibody Screen 06/02/16 14:31 Influenza Types A,B Antigen (FINN) - Final Nasopharyngeal Swab - Final 06/02/16 14:31 RBC 3.88 D MCV 88.2 MCHC 32.4 RDW 16.3 H MPV 7.4 L Neutrophils % 83.5 H Lymphocytes % 8.1 D Monocytes % 7.1 D Eosinophils % 0.9 Basophils % 0.4 - Medications Given in the ED: ED Medications Discontinued Medications Generic Name Dose Route Start Last Admin Trade Name Jagruti PRN Reason Stop Dose Admin Sodium Chloride 250 mls @ 500 mls/hr 06/02/16 15:31 06/02/16 15:44 Normal Saline - IV 06/02/16 16:00 500 mls/hr ASDIR STA Administration Medical Decision Making - Critical Care Time Total Critical Care Time (minutes): 35 Critical Care Statement: The care of this patient involved high complexity decision making to prevent further life threatening deterioration of the patient 's condition and/or to evalute & treat vital organ system(s) failure or risk of failure. - Medical Decision Making 06/02/16 17:00 Patient sent in from [facility] for evaluation of pneumonia. As per report patient had an x-ray that showed an infiltrate. Patient here on exam had scattered wheezing with crackles to bronchus and left lower lobe concerning for CHF versus pneumonia. Patient ordered for septic workup and given a DuoNeb. Patient also ordered for 20 50 mL of fluid since she is mildly tachycardic and may be fluid depleted . Rectal temperature within normal limits. 06/02/16 17:00 Laboratory Tests 06/02/16 06/02/16 06/02/16 14:20 14:31 14:31 WBC 10.4 H D Hgb 11.1 D Hct 34.2 D RDW 16.3 H Plt Count 358 D MPV 7.4 L Neutrophils % 83.5 H INR 2.38 H D PTT (Actin FS) 36.6 H D VBG pH 7.43 H POC VBG pCO2 48.0 POC VBG pO2 58.0 H Sodium Potassium Chloride Carbon Dioxide Anion Gap BUN Creat Clearance w eGFR Random Glucose Lactic Acid Calcium AST ALT Alkaline Phosphatase Creatine Kinase Troponin I B-Natriuretic Peptide Urine Protein Urine Blood Ur Leukocyte Esterase Urine WBC Blood Type 06/02/16 06/02/16 06/02/16 14:31 14:31 14:31 WBC Hgb Hct RDW Plt Count MPV Neutrophils % INR PTT (Actin FS) VBG pH POC VBG pCO2 POC VBG pO2 Sodium 144 Potassium 4.2 D Chloride 104 Carbon Dioxide 32 D Anion Gap 8 BUN 15 Creat Clearance w eGFR > 60 Random Glucose 193 H D Lactic Acid 1.209 Calcium 7.8 L AST 14 L D ALT 10 L D Alkaline Phosphatase 169 H Creatine Kinase 15 L Troponin I 0.16 H B-Natriuretic Peptide Pending Urine Protein 1+ H D Urine Blood 2+ H Ur Leukocyte Esterase 3+ H Urine WBC 308 Blood Type 06/02/16 14:31 WBC Hgb Hct RDW Plt Count MPV Neutrophils % INR PTT (Actin FS) VBG pH POC VBG pCO2 POC VBG pO2 Sodium Potassium Chloride Carbon Dioxide Anion Gap BUN Creat Clearance w eGFR Random Glucose Lactic Acid Calcium AST ALT Alkaline Phosphatase Creatine Kinase Troponin I B-Natriuretic Peptide Urine Protein Urine Blood Ur Leukocyte Esterase Urine WBC Blood Type O POSITIVE Had a urine culture sent on 05/08/2016 that was sensitive to cephalosporins with organism of Proteus Mirabilis and Citrobacter. A culture was sent again today patient was ordered for ceftriaxone. awaiting callback from Dr. Mann for admission. 06/02/16 18:29 Laboratory Tests 06/02/16 14:31 B-Natriuretic Peptide 1852.64 H Patient ordered for 40 mg of Lasix IV secondary to third spacing. Awaiting callback from Dr. Mann for admission. pt with noted moist cough and concerning for aspiration pneumonia. Will admit to telemetry inpatient and consult Dr. Wells secondary to CHF presentation. *DC/Admit/Observation/Transfer Diagnosis at time of Disposition: Hypoxemia, Retaining fluid, Tachycardia Aspiration pneumonia Qualifiers: Aspiration pneumonia type: unspecified Laterality: unspecified laterality - Discharge Dispostion Admit: Yes
[2016-06-02] MEDS ORDERED: CEFTRIAXONE 50 ML ONE (17:21)
[2016-06-02] MEDS ORDERED: FUROSEMIDE 40 MG/4 ML INJECTABLE VIAL IVPUSH ONE (17:55)
[2016-06-02] MEDS ORDERED: FUROSEMIDE 40 MG/4 ML INJECTABLE VIAL ONE (18:25)
[2016-06-02] MEDS ORDERED: ALBUTEROL SO4 2.5/IPRATROPIUM 0.5 INH SOL 3 ML VIAL.NEB. NEB PRN (18:53)
[2016-06-02] MEDS ORDERED: ACETAMINOPHEN 325 MG TABLET (FP) PO PRN (18:53)
[2016-06-02] MEDS ORDERED: DOCUSATE SODIUM 100 MG CAPSULE (FP) PO PRN (18:53)
[2016-06-02] MEDS ORDERED: WARFARIN NA 2 MG TABLET (UD) PO SCH (19:00)
[2016-06-02] MEDS ORDERED: PANTOPRAZOLE SODIUM 100 ML IVPB ONE (19:11)
[2016-06-02] MEDS ORDERED: WARFARIN NA 1 MG TABLET (FP) ONE (19:11)
[2016-06-02] MEDS ORDERED: methylPREDNISolone NA SUCC 40 MG/1 ML VIAL ONE (19:12)
[2016-06-02] MEDS: PANTOPRAZOLE SODIUM 100 ML IVPB SCH (19:29)
[2016-06-02] MEDS: methylPREDNISolone NA SUCC 40 MG/1 ML VIAL IVPB SCH (19:29)
[2016-06-02] MEDS ORDERED: BUDESONIDE 0.5 MG/2 ML INH SUSP VIAL NEB SCH (22:00)
[2016-06-02] MEDS ORDERED: HEPARIN NA (PORCINE) 5,000 UNITS/ML 1ML VIAL SQ SCH (22:00)
[2016-06-02 22:28] LABS: TROPONIN I 0.14 ng/ml (0.00-0.05)
[2016-06-02] MEDS: OXYBUTYNIN CHLORIDE 5 MG TABLET PO SCH (22:40)
[2016-06-02] MEDS: CARBIDOPA/LEVODOPA 25/100 TABLET (FP) PO SCH (22:40)
[2016-06-02] MEDS: VANCOMYCIN 250 MG/5 ML ORAL SOLUTION PO SCH (23:28)
--- NOTE | 2016-06-02 23:33 | EKG ---
Test Reason : Blood Pressure : / mmHG Vent. Rate : 106 BPM Atrial Rate : 110 BPM P-R Int : 000 ms QRS Dur : 078 ms QT Int : 294 ms P-R-T Axes : 000 -04 012 degrees QTc Int : 390 ms ATRIAL FIBRILLATION WITH RAPID VENTRICULAR RESPONSE WITH PREMATURE VENTRICULAR OR ABERRANTLY CONDUCTED COMPLEXES ABNORMAL ECG WHEN COMPARED WITH ECG OF 22-MAY-2016 09:10, ST NO LONGER DEPRESSED IN INFERIOR LEADS Confirmed by MARY JO WILSON, MARIZA ([id number]) on 06/02/2016 11:33:27 PM Referred By: Confirmed By:MARIZA CAMARGO MD
[2016-06-03] MEDS: methylPREDNISolone NA SUCC 40 MG/1 ML VIAL IVPB SCH ×3 (01:57→17:44)
[2016-06-03 05:40] LABS: TROPONIN I 0.1 ng/ml (0.00-0.05)
[2016-06-03] MEDS: CARBIDOPA/LEVODOPA 25/100 TABLET (FP) PO SCH ×3 (06:13→21:53)
[2016-06-03] MEDS: FUROSEMIDE 40 MG/4 ML INJECTABLE VIAL IVPB SCH ×2 (06:13→14:00)
[2016-06-03 08:34] LABS: BASOPHIL 0.1 % (0-2.0); MEAN CELL VOLUME 87.7 fl (80-96); MEAN PLT VOLUME 7.6 fl (7.5-11.1); NEUTROPHILS 95.7 % (42.8-82.8); PLATELET COUNT 353 K/MM3 (134-434); RDW 16.1 % (11.6-15.6); WHITE BLOOD COUNT 8.8 K/mm3 (4.0-10.0)
[2016-06-03 08:46] LABS: INR 3.24 (0.82-1.09); PROTHROMBIN TIME (PATIENT) 36.5 SEC (9.98-11.88)
[2016-06-03 09:17] LABS: ALBUMIN 2.4 g/dl (3.4-5.0); ALK PHOS 182 U/L (45-117); ANION GAP 11 (8-16); BILIRUBIN,TOTAL 0.6 mg/dL (0.2-1.0); CALCIUM 7.9 mg/dL (8.5-10.1); CO2 31 mmol/L (21-32); CREATININE 0.7 mg/dL (0.55-1.02); SGOT/AST 13 U/L (15-37); SGPT/ALT 6 U/L (12-78); TOT PROT 7.2 g/dl (6.4-8.2)
[2016-06-03 09:22] LABS: GLUCOSE,RANDOM 331 mg/dL (74-106)
[2016-06-03] MEDS: PANTOPRAZOLE SODIUM 100 ML IVPB SCH (09:39)
[2016-06-03] MEDS: LACTOBACILLUS ACIDOPHILUS 1 EACH TAB (FP) PO SCH (09:39)
[2016-06-03] MEDS: OXYBUTYNIN CHLORIDE 5 MG TABLET PO SCH ×2 (09:39→21:53)
[2016-06-03] MEDS: LORATADINE 10 MG TABLET PO SCH (09:39)
[2016-06-03] MEDS: METOPROLOL SUCCINATE 25 MG TAB.SR.24H (FP) PO SCH (09:39)
[2016-06-03] MEDS: MULTIVITAMINS (DAILY MVI) TABLET (FP) PO SCH (09:39)
[2016-06-03] MEDS ORDERED: ASPIRIN COATED 81 MG TABLET.EC PO SCH (10:00)
[2016-06-03] MEDS: VANCOMYCIN 250 MG/5 ML ORAL SOLUTION PO SCH ×4 (10:54→21:53)
--- NOTE | 2016-06-03 10:54 | CON.CARD ---
Cardiology Consult (text) - Consultation Consultation Note: CC: sent from [facility] for possible pna, cough hpi: 89 yo f with h/o dementia, cva, htn, niddm, afib on coumadin, mild as, mod mr, mild ar sent from [place] for possible pna and coughing. History limited due to dementia, pt denies any sxs and is not sure why in hospital. She denies cp, sob, palps, dizzy,loc, pnd, orthopnea, le edema. Admitted for pna and chf. pmh: per hpi psh: non contrib social: ex tobacco fam: non contrib ros: per hpi; no nvd, fever, domingo, vision changes, muscle pains, hematuria Ambulatory Orders Medication Instructions Recorded Carbidopa/Levodopa [Carbidopa-Levo 1 each PO TID 02/26/14 25-100 Tab] Acetaminophen [Tylenol .Regular 650 mg PO Q6H PRN #0 tablet 05/25/16 Strength -] Aspirin Coated [Ecotrin -] 81 mg PO DAILY tablet.ec 05/25/16 Docusate Sodium [Colace -] 100 mg PO BID PRN #0 capsule 05/25/16 Lactobacillus Acidophilus [Bacid -] 1 tab PO DAILY tab 05/25/16 Metoprolol Succinate [Toprol XL -] 25 mg PO DAILY tab.sr.24h 05/25/16 Oxybutynin Chloride [Ditropan -] 5 mg PO BID tablet 05/25/16 Albuterol 2.5/Ipratropium 0.5 1 neb IH QID 06/02/16 [Duoneb -] Budesonide [Pulmicort 0.5 mg 1 neb PO BID 06/02/16 Nebulizer -] Furosemide [Lasix] 40 mg PO BID 06/02/16 Loratadine 10 mg PO DAILY 06/02/16 Menthol/Zinc Oxide [Calmoseptine 71 gm TP PRN 06/02/16 Ointment] Mesalamine W/Cleansing Wipes 4 gm RC HS 06/02/16 [Rowasa 4 gm/60 ml Enema Kit] Multivitamins [Tab-A-Vit -] 1 tab PO DAILY 06/02/16 Omeprazole Magnesium [Prilosec] 20 mg PO DAILY 06/02/16 Oseltamivir Phosphate [Tamiflu] 75 mg PO DAILY 06/02/16 Vancomycin Oral Solution [Vancocin 250 mg PO QID 06/02/16 *Oral Solution*] Warfarin Sodium 4 mg PO HS 06/02/16 Vital Signs Period Temp Pulse Resp BP Sys/[place]arro Pulse Ox Last 24 Hr 97.8 F-98.8 F 98-112 20-28 109-162/58-95 96-99 NAD, calm JVD flat, neck supple bibasilar crackles, nl eff Irregularly, irregular nl s1, s2 no m/r/g + bs soft nt nd no le edema, (cast on right leg) +distal pulses, no carotid bruits no jaundice diaphoresis awake, confused Laboratory Last Values WBC 8.8 K/mm3 (4.0-10.0) 06/03/16 08:15 RBC 3.82 M/mm3 (3.60-5.2) 06/03/16 08:15 Hgb 11.1 GM/dL (10.7-15.3) 06/03/16 08:15 Hct 33.5 % (32.4-45.2) 06/03/16 08:15 MCV 87.7 fl (80-96) 06/03/16 08:15 MCHC 33.0 g/dl (32.0-36.0) 06/03/16 08:15 RDW 16.1 % (11.6-15.6) H 06/03/16 08:15 Plt Count 353 K/MM3 (134-434) 06/03/16 08:15 MPV 7.6 fl (7.5-11.1) 06/03/16 08:15 Neutrophils % 95.7 % (42.8-82.8) H 06/03/16 08:15 Lymphocytes % 3.0 % (8-40) L D 06/03/16 08:15 Monocytes % 1.2 % (3.8-10.2) L D 06/03/16 08:15 Eosinophils % 0.0 % (0-4.5) D 06/03/16 08:15 Basophils % 0.1 % (0-2.0) 06/03/16 08:15 INR 3.24 (0.82-1.09) H D 06/03/16 08:15 PTT (Actin FS) 36.6 SECONDS (26.9-34.4) H D 06/02/16 14:31 VBG pH 7.43 (7.31-7.41) H 06/02/16 14:20 POC VBG pCO2 48.0 mmHg (41-51) 06/02/16 14:20 POC VBG pO2 58.0 mmHg (30-40) H 06/02/16 14:20 Sodium 144 mmol/L (136-145) 06/03/16 08:15 Potassium 3.9 mmol/L (3.5-5.1) 06/03/16 08:15 Chloride 102 mmol/L (98-107) 06/03/16 08:15 Carbon Dioxide 31 mmol/L (21-32) 06/03/16 08:15 Anion Gap 11 (8-16) 06/03/16 08:15 BUN 16 mg/dL (7-18) 06/03/16 08:15 Creatinine 0.7 mg/dL (0.55-1.02) 06/03/16 08:15 Creat Clearance w eGFR > 60 (>60) 06/03/16 08:15 Random Glucose 331 mg/dL (74-106) H* D 06/03/16 08:15 Lactic Acid 1.221 mmol/L (0.4-2.0) 06/02/16 21:20 Calcium 7.9 mg/dL (8.5-10.1) L 06/03/16 08:15 Total Bilirubin 0.6 mg/dL (0.2-1.0) 06/03/16 08:15 AST 13 U/L (15-37) L 06/03/16 08:15 ALT 6 U/L (12-78) L D 06/03/16 08:15 Alkaline Phosphatase 182 U/L (45-117) H 06/03/16 08:15 Creatine Kinase 13 IU/L (26-192) L 06/03/16 03:00 Troponin I 0.10 ng/ml (0.00-0.05) H 06/03/16 03:00 B-Natriuretic Peptide 1852.64 pg/ml (5-450) H 06/02/16 14:31 Total Protein 7.2 g/dl (6.4-8.2) 06/03/16 08:15 Albumin 2.4 g/dl (3.4-5.0) L 06/03/16 08:15 Urine Color Nataly 06/02/16 14:31 Urine Appearance Cloudy 06/02/16 14:31 Urine pH 5.0 (5.0-8.0) D 06/02/16 14:31 Ur Specific Fleming 1.024 (1.001-1.035) 06/02/16 14:31 Urine Protein 1+ (NEGATIVE) H D 06/02/16 14:31 Urine Glucose (UA) Negative (NEGATIVE) 06/02/16 14:31 Urine Ketones Negative (NEGATIVE) 06/02/16 14:31 Urine Blood 2+ (NEGATIVE) H 06/02/16 14:31 Urine Nitrite Negative (NEGATIVE) 06/02/16 14:31 Urine Bilirubin Negative (NEGATIVE) 06/02/16 14:31 Urine Urobilinogen Negative E.U./dl (0.2-1.0) 06/02/16 14:31 Ur Leukocyte Esterase 3+ (NEGATIVE) H 06/02/16 14:31 Urine RBC 22 /hpf (0-3) 06/02/16 14:31 Urine WBC 308 /hpf (3-5) 06/02/16 14:31 Hyaline Casts 3 /lpf 06/02/16 14:31 Granular Casts 3 /lpf 06/02/16 14:31 Urine Mucus Few 06/02/16 14:31 Blood Type O POSITIVE 06/02/16 14:31 Antibody Screen Negative 06/02/16 14:31 echo 2012: nl lv/rv. mod benito. - JON measured at 0.9, but PG and MG only / , mod MAC. mod MR/TR. RVSP 46 echo 05/2016: tds; nl lv/rv, benito, mild mr/tr, rvsp 30-40, mild cxr: no chf ecg 06/02/16: afib, vr 106, nl qtc, no ischemic changes tele: afib, vr low 100s a/p: 89 yo f with h/o dementia, cva, htn, niddm, afib on coumadin, mild as, mod mr, mild ar sent [place] for possible pna and coughing. sob, acute diastolic chf exacerbation: -difficult to get symptom info from pt given her dementia but bnp elevated and some crackles on lung exam so possibly with mild chf exacerbation -cont with iv lasix as doing, monitor daily chem7 -possible sob contribution from pna as well, on abx and iv steroids afib with h/o CVA: - Reasonable HR control. Con't metoprolol. Cont to monitor on tele for now. - hi CHADS-VASC with prior CVA (7) - has hx of falls but now that supervised/monitored in NH she is on AC, cont warfarin per inr. can dc asa since getting AC now. anemia: -recently with rectal bleed s/p PRBCs here -EGD/FOC showed no bleeding culprit on EGD; rectal ulcerations found and ? pseudomembrane--cleared to resume AC -hgb stable, monitor with ac HTN -controlled on bb history of mod mr, mild ar, mild , pHTN: - stable on recent echo - cont lasix as above positive trops: -borderline elevated trops with flat trend and nl ck, no ischemic ecg changes-- not consistent with acs
--- NOTE | 2016-06-03 11:03 | HP ---
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: [employer] History of Recent Travel: No Home Medications - Allergies Allergies/Adverse Reactions: Allergies Allergy/AdvReac Type Severity Reaction Status Date / Time No Known Allergies Allergy Verified 05/18/16 12:38 - Home Medications Home Medications: Ambulatory Orders Carbidopa/Levodopa [Carbidopa-Levo 25-100 Tab] 1 each PO TID 02/26/14 Acetaminophen [Tylenol .Regular Strength -] 650 mg PO Q6H PRN #0 tablet Aspirin Coated [Ecotrin -] 81 mg PO DAILY tablet.ec 05/25/16 Docusate Sodium [Colace -] 100 mg PO BID PRN #0 capsule 05/25/16 Lactobacillus Acidophilus [Bacid -] 1 tab PO DAILY tab 05/25/16 Metoprolol Succinate [Toprol XL -] 25 mg PO DAILY tab.sr.24h 05/25/16 Oxybutynin Chloride [Ditropan -] 5 mg PO BID tablet 05/25/16 Albuterol 2.5/Ipratropium 0.5 [Duoneb -] 1 neb IH QID 06/02/16 Budesonide [Pulmicort 0.5 mg Nebulizer -] 1 neb PO BID 06/02/16 Furosemide [Lasix] 40 mg PO BID 06/02/16 Loratadine 10 mg PO DAILY 06/02/16 Menthol/Zinc Oxide [Calmoseptine Ointment] 71 gm TP PRN 06/02/16 Mesalamine W/Cleansing Wipes [Rowasa 4 gm/60 ml Enema Kit] 4 gm RC HS 06/02/16 Multivitamins [Tab-A-Vit -] 1 tab PO DAILY 06/02/16 Omeprazole Magnesium [Prilosec] 20 mg PO DAILY 06/02/16 Oseltamivir Phosphate [Tamiflu] 75 mg PO DAILY 06/02/16 Vancomycin Oral Solution [Vancocin *Oral Solution*] 250 mg PO QID 06/02/16 Warfarin Sodium 4 mg PO HS 06/02/16 Review of Systems Unable to obtain ROS, reason: DEMENTIA Physical Examination Vital Signs: Vital Signs Temperature 97.8 F 06/03/16 09:51 Pulse Rate 98 H 06/03/16 09:51 Respiratory Rate 20 06/03/16 09:51 Blood Pressure 150/80 06/03/16 09:51 O2 Sat by Pulse Oximetry (%) 99 06/03/16 09:00 Cardiovascular: Yes: Regular Rate and Rhythm, S1, S2 Respiratory: Yes: CTA Bilaterally Gastrointestinal: Yes: Normal Bowel Sounds, Soft Labs: CBC, BMP 06/03/16 08:15 06/03/16 08:15 Imaging - Results Chest X-ray: Report Reviewed EKG: Report Reviewed Problem List - Problems (1) Aspiration pneumonia Code(s): J69.0 - PNEUMONITIS DUE TO INHALATION OF FOOD AND VOMIT Qualifiers: Aspiration pneumonia type: unspecified Laterality: unspecified laterality (2) Atrial fibrillation Code(s): I48.91 - UNSPECIFIED ATRIAL FIBRILLATION (3) CVA, old, cognitive deficits Code(s): I69.31 - COGNITIVE DEFICITS FOLLOWING CEREBRAL INFARCT * DO NOT USE * (4) Dementia Code(s): F03.90 - UNSPECIFIED DEMENTIA WITHOUT BEHAVIORAL DISTURBANCE (5) Retaining fluid Code(s): E87.70 - FLUID OVERLOAD, UNSPECIFIED (6) HTN (hypertension) Code(s): I10 - ESSENTIAL (PRIMARY) HYPERTENSION (7) Diabetes Code(s): E11.9 - TYPE 2 DIABETES MELLITUS WITHOUT COMPLICATIONS Qualifiers: Diabetes mellitus complication status: with kidney complications Diabetes mellitus complication detail: with chronic kidney disease (8) C. difficile colitis Code(s): A04.7 - ENTEROCOLITIS DUE TO CLOSTRIDIUM DIFFICILE Assessment/Plan 89-year-old female sent to the ED for evaluation of cough, and a positive infiltrate seen on chest x-ray that was taken recently. Patient denies chest pain, shortness of breath, abdominal pain, back pain, headache or nausea. He also denies chills or fever. As stated A. fib currently on Coumadin, patient also with history of recent Right ankle fracture requiring casting. Patient also with history of CHF and is currently on Lasix. (1) Aspiration pneumonia Code(s): J69.0 - PNEUMONITIS DUE TO INHALATION OF FOOD AND VOMIT Qualifiers: Aspiration pneumonia type: unspecified Laterality: unspecified laterality IV ABx ST & ID CONSULTED CASE D/W ID -> LOW SUSPICION OF PNA NO IV ABx (2) Atrial fibrillation Code(s): I48.91 - UNSPECIFIED ATRIAL FIBRILLATION APPRECIATE CARDIO CONSULT HOLD AC 2/2 H/O FALLS ASA 81 (3) CVA, old, cognitive deficits Code(s): I69.31 - COGNITIVE DEFICITS FOLLOWING CEREBRAL INFARCT * DO NOT USE * (4) Dementia Code(s): F03.90 - UNSPECIFIED DEMENTIA WITHOUT BEHAVIORAL DISTURBANCE (5) Retaining fluid Code(s): E87.70 - FLUID OVERLOAD, UNSPECIFIED (6) HTN (hypertension) Code(s): I10 - ESSENTIAL (PRIMARY) HYPERTENSION (7) Diabetes Code(s): E11.9 - TYPE 2 DIABETES MELLITUS WITHOUT COMPLICATIONS Qualifiers: Diabetes mellitus complication status: with kidney complications Diabetes mellitus complication detail: with chronic kidney disease BS 330 -> BGM/ISS (8) C. difficile colitis Code(s): A04.7 - ENTEROCOLITIS DUE TO CLOSTRIDIUM DIFFICILE CONFIRMED BY ID +jose AT [place] [facility] [employer] [facility]
--- NOTE | 2016-06-03 11:23 | PN ---
Progress Note (short form) - Note Progress Note: ID Consult dictated 89 y/o female, recent [facility] admission for Trimalleolar fracture complicated by UTI now admitted from ID with cough, wheeze + Diarrhea with dx C difficile + at ID Probable CHF, doubt pneumonia C difficile colitis S/P Trimalleolar fracture S/P UTI Would continue tx for C difficile with vancomycin Complete 14d course Observe off systemic antibiotics
--- NOTE | 2016-06-03 11:27 | CONSULT ---
Admitting History and Physical - Primary Care Physician PCP: Aakash Montes De Oca - Admission History of Present Illness: Per EMR: "Initial Comments: 06/02/16 16:01 89-year-old female sent to the ED for evaluation of cough, and a positive infiltrate seen on chest x-ray that was taken recently. Patient denies chest pain, shortness of breath, abdominal pain, back pain, headache or nausea. He also denies chills or fever. As stated A. fib currently on Coumadin, patient also with history of recent Right ankle fracture requiring casting. Patient also with history of CHF and is currently on Lasix." on ground diet/nectar at ID. Per EMR: "ID Consult dictated 89 y/o female, recent [facility] admission for Trimalleolar fracture complicated by UTI now admitted from ID with cough, wheeze + Diarrhea with dx C difficile + at ID Probable CHF, doubt pneumonia C difficile colitis S/P Trimalleolar fracture S/P UTI Would continue tx for C difficile with vancomycin Complete 14d course Observe off systemic antibiotics" Pt on ground and nectar at ID. 1:1 feedings. aspiration precautions Selected Entries 06/02/16 06/02/16 06/02/16 14:08 14:50 20:45 Temperature 98.8 F 98.8 F 98.6 F 06/03/16 06/03/16 06/03/16 02:00 06:00 09:51 Temperature 98.2 F 98.7 F 97.8 F Laboratory Tests 06/02/16 06/03/16 14:31 08:15 WBC 10.4 H D 8.8 History Source: Patient (grossly oriented. Congested,coughing throughout assessment. 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 History of Recent Travel: No History - Admission Reason For Visit: HYPOXIA; FLUID RETENTION - Diagnostics X-ray: Report Reviewed - General Mental Status: Awake and Alert, Able to Follow Commands Attention: Intact Ability to Follow Directions: Fair Head/Neck Control: Good - Hearing Hearing: Functional Hearing: Normal Hearing Aide: No With Patient: No Speech Evaluation - Communication Primary Language: CHINESE Communication: Yes: Simple Responses - Speech Production Able to Make Needs Known: Yes: WNL Intelligibility: Yes: WNL - Speech Characteristics Voice Loudness: Normal Voice Pitch: Yes: Normal Voice Phonatory-based Quality: Yes: Dysphonia (mild) Speech Clarity: < 100% Nasal Resonance: Normal Articulation: Yes: Precise Rate of Speech: Intact - Language/Auditory Comprehension Follows: Yes: 1 Stage Simple Commands - Language/Verbal Expression Able to Respond to Simple Queries: Yes: WNL Able to Communicate Wants and Needs: Yes: WNL Functional Communication Status: Yes: WNL - Swallow Evaluation/Bedside Assessment Current Nutritional Intake: Regular, Thin Liquids Oral Secretions: Yes: WFL (frequent cough/congestion/ had thin liquids for breakfast.) Facial Symmetry at Rest: Symmetrical Facial Symmetry on Retraction: Symmetrical Jaw Position: Open at Rest Pucker Lips: Normal Smile: Normal Lingual Movement: Symmetric (black coating) Lingual Speed of Movement: Normal Lingual Movement Strgth Against Opposition: Normal Bite Reflex: Present Laryngeal Movement: Able to Palpate Rate of Intake: WFL Bolus Size: WFL Labial Seal: WFL Chewing: WFL Oral Prep Time: WFL A-P Transit: WFL Coughing/Throat Clear: Yes (with out without po trials) Recommendations - Speech Evaluation, Impression/Plan Impression: Coughing with out without po trials. On aspiration prec at NH, ground/nectar - Dysphagia Impressions/Plan Dysphagia Impressions: Ongoing Evaluation *Silent aspiration: cannot be R/O at bedside Recommendations: Modified Barium Swallow - Recommendations Diet Consistency: Dysphagia Pureed Liquids: [place] Thick
[2016-06-03] MEDS: INSULIN SLIDING SCALE (NOVOLOG) 1 VIAL SQ SCH ×4 (11:56→21:53)
--- NOTE | 2016-06-03 12:13 | CON.PULM ---
Consult Consult Specialty:: PULMONARY Referred by:: TAYA Reason for Consultation:: INFILTRATE - History of Present Illness Chief Complaint: NO COMPLAINTS History of Present Illness: 89-year-old female sent to the ED for evaluation of cough, and a positive infiltrate seen on chest x-ray that was taken recently. Patient denies chest pain, shortness of breath, abdominal pain, back pain, headache or nausea. She also denies chills or fever. As stated A. fib currently on Coumadin, patient also with history of recent Right ankle fracture requiring casting. Patient also with history of CHF and is currently on Lasix. Patient has minimized her symptoms. 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 Cardio/Vascular: Yes: AFIB Pulmonary: Yes: COPD Renal/: Yes: UTI Endocrine: Yes: Diabetes Mellitus Additional Medical History: groin abscess s/p incision and drainage 2012 - Alcohol/Substance Use Hx Alcohol Use: No - Smoking History Smoking history: Never smoked Have you smoked in the past 12 months: No Aproximately how many cigarettes per day: 0 If you are a former smoker, when did you quit?: Over 20 years ago - Social History Usual Living Arrangement: Other (with aide) 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 History of Recent Travel: No Home Medications - Allergies Allergies/Adverse Reactions: Allergies Allergy/AdvReac Type Severity Reaction Status Date / Time No Known Allergies Allergy Verified 05/18/16 12:38 - Home Medications Home Medications: Ambulatory Orders Carbidopa/Levodopa [Carbidopa-Levo 25-100 Tab] 1 each PO TID 02/26/14 Acetaminophen [Tylenol .Regular Strength -] 650 mg PO Q6H PRN #0 tablet Aspirin Coated [Ecotrin -] 81 mg PO DAILY tablet.ec 05/25/16 Docusate Sodium [Colace -] 100 mg PO BID PRN #0 capsule 05/25/16 Lactobacillus Acidophilus [Bacid -] 1 tab PO DAILY tab 05/25/16 Metoprolol Succinate [Toprol XL -] 25 mg PO DAILY tab.sr.24h 05/25/16 Oxybutynin Chloride [Ditropan -] 5 mg PO BID tablet 05/25/16 Albuterol 2.5/Ipratropium 0.5 [Duoneb -] 1 neb IH QID 06/02/16 Budesonide [Pulmicort 0.5 mg Nebulizer -] 1 neb PO BID 06/02/16 Furosemide [Lasix] 40 mg PO BID 06/02/16 Loratadine 10 mg PO DAILY 06/02/16 Menthol/Zinc Oxide [Calmoseptine Ointment] 71 gm TP PRN 06/02/16 Mesalamine W/Cleansing Wipes [Rowasa 4 gm/60 ml Enema Kit] 4 gm RC HS 06/02/16 Multivitamins [Tab-A-Vit -] 1 tab PO DAILY 06/02/16 Omeprazole Magnesium [Prilosec] 20 mg PO DAILY 06/02/16 Oseltamivir Phosphate [Tamiflu] 75 mg PO DAILY 06/02/16 Vancomycin Oral Solution [Vancocin *Oral Solution*] 250 mg PO QID 06/02/16 Warfarin Sodium 4 mg PO HS 06/02/16 Family Disease History - Family Disease History Family History: Unremarkable Review of Systems Unable to obtain ROS, reason: UNABLE WITH ANY ACCURACY Physical Exam Vital Sings: Vital Signs Temperature 97.8 F 06/03/16 09:51 Pulse Rate 98 H 06/03/16 09:51 Respiratory Rate 20 06/03/16 09:51 Blood Pressure 150/80 06/03/16 09:51 O2 Sat by Pulse Oximetry (%) 99 06/03/16 09:00 Constitutional: Yes: Calm Eyes: Yes: EOM Intact HENT: Yes: Normocephalic Neck: Yes: Trachea Midline Cardiovascular: Yes: Pulse Irregular, S1, S2 Respiratory: Yes: Diminished (BUT CLEAR) Gastrointestinal: Yes: Abdomen, Obese Extremities: Yes: Other (RIGHT LEG CASTED) Edema: No Integumentary: Yes: WNL Neurological: Yes: Alert Labs: CBC, BMP 06/03/16 08:15 06/03/16 08:15 REST REVIEWED Imaging - Results Chest X-ray: Image Reviewed Problem List - Problems (1) Aspiration pneumonia Code(s): J69.0 - PNEUMONITIS DUE TO INHALATION OF FOOD AND VOMIT Qualifiers: Aspiration pneumonia type: unspecified Laterality: unspecified laterality (2) HTN (hypertension) Code(s): I10 - ESSENTIAL (PRIMARY) HYPERTENSION (3) Hypoxemia Code(s): R09.02 - HYPOXEMIA (4) Tachycardia Code(s): R00.0 - TACHYCARDIA, UNSPECIFIED (5) Anemia Code(s): D64.9 - ANEMIA, UNSPECIFIED Qualifiers: Other causes of anemia: acute posthemorrhagic (6) Atrial fibrillation Code(s): I48.91 - UNSPECIFIED ATRIAL FIBRILLATION (7) CVA, old, cognitive deficits Code(s): I69.31 - COGNITIVE DEFICITS FOLLOWING CEREBRAL INFARCT * DO NOT USE * Assessment/Plan CHECK PANCULTURE CONTINUE ANTIBIOTICS FOR NOW AGREE WITH MBS HAVE ADJUSTED STEROIDS/CONTINUE PRN BRONCHODILATION/SUPPLEMENTAL O2 Marisela ALVARADO MD
--- NOTE | 2016-06-03 13:13 | CONS ---
INFECTIOUS DISEASE CONSULTATION DATE OF CONSULTATION: DATE OF DICTATION: 06/03/2016 HISTORY OF PRESENT ILLNESS: The patient is an 89-year-old female evaluated for possible pneumonia. She was recently hospitalized at [facility] from May 18 through May 25 with a trimalleolar fracture. Her hospital course at that time was complicated by a urinary tract infection for which she received a course of IV ceftriaxone and p.o. Augmentin. [facility] where she developed loose bowel movements. According to the notes, she had a positive stool antigen and toxin for C. difficile. She was started on p.o. vancomycin. She is now re-admitted with reports of cough and wheeze. A chest x-ray at the [facility] showed possible left upper lobe infiltrate. At the present time, she is awake and alert. She denies any focal complaints. She denies any chest pain, shortness of breath, cough or sputum production. No complaints of leg pain. She denies any abdominal pain or diarrhea. She received a dose of ceftriaxone. PAST MEDICAL HISTORY: 1. Dementia. 2. Recent right ankle fracture. 3. Atrial fibrillation. 4. Diabetes mellitus. 5. Urinary tract infection. ALLERGIES: No known allergies. MEDICATIONS: 1. Carbidopa. 2. Ecotrin. 3. Colace. 4. Bacid. 5. Toprol. 6. Ditropan. 7. Lasix. 8. Prilosec. 9. Tamiflu SOCIAL HISTORY: She is a [facility] resident. She is dependent in activities of daily living. No active tobacco or alcohol use. SYSTEMS REVIEW: Neurologic: Positive for dementia. Cardiac: Positive for atrial fibrillation. Respiratory: As per history of present illness. Gastrointestinal: Positive for diarrhea; no vomiting reported. Genitourinary: Positive for recent urinary tract infection. LABORATORY DATA: White count 8.8, hematocrit 33.5, platelet count 303, creatinine 0.7. Urinalysis showed 308 white cells. RADIOGRAPHIC FINDINGS: Chest x-ray showed cardiomegaly. No focal consolidation. PHYSICAL EXAMINATION: General: She is awake and responsive, in no acute distress. Breathing is unlabored. Vital Signs: Temperature 97.8, blood pressure 150/80, pulse 98 and regular, respirations 20 per minute. HEENT: Sclera anicteric. Heart: Heart sounds irregular, S1, S2. Lungs: Scattered rhonchi bilaterally. Diminished breath sounds at the bases. Abdomen: Soft. No tenderness elicited. No masses, rebound or rigidity. Extremities: There is 1+ edema. The right lower extremity is casted. IMPRESSION: 1. Positive C. difficile colitis. 2. Probable congestive heart failure; doubt pneumonia. 3. Status post trimalleolar ankle fracture. 4. Status post urinary tract infection. RECOMMENDATIONS: 1. Would continue treatment for C. difficile with oral vancomycin; complete a 14-day course. 2. Would observe off systemic antibiotics. Thank you for the kind referral. HIWOT ABDI M.D. [id number]
--- NOTE | 2016-06-03 16:26 | CONSULT ---
Consult Consult Specialty:: Nephrology Reason for Consultation:: chf and fluid management - History of Present Illness Chief Complaint: cough History of Present Illness: Pt is an 89 year old female who was recently seen by me for azotemia during a UTI. She was sent in for cough. She feels that her breathing is improved today. I was called to evaluate her for abnormal urine. Her renal function is stable. She is on lasix for CHF. She is also being treated for c.diff. 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 [employer] History of Recent Travel: No Home Medications - Allergies Allergies/Adverse Reactions: Allergies Allergy/AdvReac Type Severity Reaction Status Date / Time No Known Allergies Allergy Verified 05/18/16 12:38 - Home Medications Home Medications: Ambulatory Orders Carbidopa/Levodopa [Carbidopa-Levo 25-100 Tab] 1 each PO TID 02/26/14 Acetaminophen [Tylenol .Regular Strength -] 650 mg PO Q6H PRN #0 tablet Aspirin Coated [Ecotrin -] 81 mg PO DAILY tablet.ec 05/25/16 Docusate Sodium [Colace -] 100 mg PO BID PRN #0 capsule 05/25/16 Lactobacillus Acidophilus [Bacid -] 1 tab PO DAILY tab 05/25/16 Metoprolol Succinate [Toprol XL -] 25 mg PO DAILY tab.sr.24h 05/25/16 Oxybutynin Chloride [Ditropan -] 5 mg PO BID tablet 05/25/16 Albuterol 2.5/Ipratropium 0.5 [Duoneb -] 1 neb IH QID 06/02/16 Budesonide [Pulmicort 0.5 mg Nebulizer -] 1 neb PO BID 06/02/16 Furosemide [Lasix] 40 mg PO BID 06/02/16 Loratadine 10 mg PO DAILY 06/02/16 Menthol/Zinc Oxide [Calmoseptine Ointment] 71 gm TP PRN 06/02/16 Mesalamine W/Cleansing Wipes [Rowasa 4 gm/60 ml Enema Kit] 4 gm RC HS 06/02/16 Multivitamins [Tab-A-Vit -] 1 tab PO DAILY 06/02/16 Omeprazole Magnesium [Prilosec] 20 mg PO DAILY 06/02/16 Oseltamivir Phosphate [Tamiflu] 75 mg PO DAILY 06/02/16 Vancomycin Oral Solution [Vancocin *Oral Solution*] 250 mg PO QID 06/02/16 Warfarin Sodium 4 mg PO HS 06/02/16 Review of Systems - Review of Systems Constitutional: reports: Malaise Eyes: reports: No Symptoms HENT: reports: No Symptoms Neck: reports: No Symptoms Cardiovascular: reports: Edema, Shortness of Breath Gastrointestinal: reports: No Symptoms Musculoskeletal: reports: Extremity Pain Endocrine: reports: No Symptoms Physical Exam Vital Signs: Vital Signs Temperature 97.8 F 06/03/16 14:42 Pulse Rate 99 H 06/03/16 14:42 Respiratory Rate 20 06/03/16 14:42 Blood Pressure 124/64 06/03/16 14:42 O2 Sat by Pulse Oximetry (%) 99 06/03/16 09:00 Constitutional: Yes: Calm Eyes: Yes: Conjunctiva Clear HENT: Yes: Atraumatic Cardiovascular: Yes: S1, S2 Respiratory: Yes: Diminished Gastrointestinal: Yes: Soft, Abdomen, Obese Renal/: Yes: Patel Present Neurological: Yes: Oriented Labs: CBC, BMP 06/03/16 08:15 06/03/16 08:15 Laboratory Tests 06/02/16 06/03/16 06/03/16 14:31 03:00 08:15 Hgb 11.1 Sodium Potassium Chloride Carbon Dioxide Anion Gap BUN Creatinine Creatine Kinase 13 L Urine Color Nataly Urine Appearance Cloudy Urine pH 5.0 D Ur Specific [place] 1.024 Urine Protein 1+ H D Urine Glucose (UA) Negative Urine Ketones Negative Urine Blood 2+ H Urine Nitrite Negative Urine Bilirubin Negative Urine Urobilinogen Negative Ur Leukocyte Esterase 3+ H Urine WBC 308 06/03/16 08:15 Hgb Sodium 144 Potassium 3.9 Chloride 102 Carbon Dioxide 31 Anion Gap 11 BUN 16 Creatinine 0.7 Creatine Kinase Urine Color Urine Appearance Urine pH Ur Specific [place] Urine Protein Urine Glucose (UA) Urine Ketones Urine Blood Urine Nitrite Urine Bilirubin Urine Urobilinogen Ur Leukocyte Esterase Urine WBC Imaging - Results Chest X-ray: Report Reviewed Assessment/Plan Current Medications Generic Name Dose Route Start Last Admin Trade Name Freq PRN Reason Stop Dose Admin Acetaminophen 650 mg 06/02/16 18:53 Tylenol - PO Q6H PRN FEVER OR PAIN Albuterol/Ipratropium 1 amp 06/02/16 18:53 Duoneb - NEB Q4H PRN ASTHMA Aspirin 81 mg 06/04/16 10:00 Asa - PO DAILY BLESSING Carbidopa/Levodopa 1 each 06/02/16 22:00 06/03/16 14:00 Sinemet 25/100 - PO 1 each TID BLESSING Administration Docusate Sodium 100 mg 06/02/16 18:53 Colace - PO BID PRN CONSTIPATION Furosemide 40 mg 06/03/16 06:00 06/03/16 14:00 Lasix Injection - IVPB 40 mg BIDLASIX BLESSING Administration Pantoprazole Sodium 100 mls @ 200 mls/hr 06/02/16 19:00 06/03/16 09:39 Protonix 40mg Ivpb (Pre-Docked) IVPB 200 mls/hr DAILY BLESSING Administration Insulin Aspart 1 vial 06/03/16 16:30 06/03/16 11:56 Novolog Vial Sliding Scale - SQ 10 units ACHS BLESSING Administration Protocol Lactobacillus Acidophilus 1 tab 06/03/16 10:00 06/03/16 09:39 Bacid - PO 1 tab DAILY BLESSING Administration Loratadine 10 mg 06/03/16 10:00 06/03/16 09:39 Claritin - PO 10 mg DAILY BLESSING Administration Methylprednisolone Sodium Succinate 40 mg 06/03/16 18:00 Solu-Medrol - IVPB Q8H-IV BLESSING Metoprolol Succinate 25 mg 06/03/16 10:00 06/03/16 09:39 Toprol Xl - PO 25 mg DAILY BLESSING Administration Multivitamins/Minerals/Vitamin C 1 tab 06/03/16 10:00 06/03/16 09:39 Tab-A-Vit - PO 1 tab DAILY BLESSING Administration Oxybutynin Chloride 5 mg 06/02/16 22:00 06/03/16 09:39 Ditropan - PO 5 mg BID BLESSING Administration Vancomycin HCl 250 mg 06/02/16 22:00 06/03/16 14:00 Vancomycin Oral Solution PO 250 mg QID BLESSING Administration Impression 1. UTI 2. CHF 3. HTN 4. a-fib 5. DM 6. dementia 7. c.diff Plan - pt does not appears to be in [place] CHF - consider changing lasix to PO in am - repeat labs in am - can repeat ua - cont current anbx - urine cultures neg from Jun 02 Dr Gamez
[2016-06-04] MEDS: methylPREDNISolone NA SUCC 40 MG/1 ML VIAL IVPB SCH ×3 (01:01→17:50)
[2016-06-04] MEDS: CARBIDOPA/LEVODOPA 25/100 TABLET (FP) PO SCH ×3 (06:24→21:50)
[2016-06-04] MEDS: FUROSEMIDE 40 MG/4 ML INJECTABLE VIAL IVPB SCH (06:24)
[2016-06-04] MEDS: INSULIN SLIDING SCALE (NOVOLOG) 1 VIAL SQ SCH ×4 (06:29→21:51)
[2016-06-04 06:59] LABS: MCH 28.4 pg (25.7-33.7); MCHC 32.7 g/dl (32.0-36.0); MEAN CELL VOLUME 86.9 fl (80-96); MEAN PLT VOLUME 8.1 fl (7.5-11.1); NEUTROPHILS 92.8 % (42.8-82.8); PLATELET COUNT 418 K/MM3 (134-434); RDW 16.3 % (11.6-15.6); WHITE BLOOD COUNT 13.4 K/mm3 (4.0-10.0)
[2016-06-04 07:49] LABS: ALBUMIN 2.3 g/dl (3.4-5.0); GLUCOSE,RANDOM 234 mg/dL (74-106)
[2016-06-04 08:03] LABS: ALK PHOS 157 U/L (45-117); ANION GAP 10 (8-16); BILIRUBIN,TOTAL 0.6 mg/dL (0.2-1.0); CO2 34 mmol/L (21-32); CREATININE 0.7 mg/dL (0.55-1.02); SGOT/AST 12 U/L (15-37); SGPT/ALT < 6 U/L (12-78); TOT PROT 6.7 g/dl (6.4-8.2)
--- NOTE | 2016-06-04 09:00 | PN ---
Progress Note, Physician Chief Complaint: afib History of Present Illness: pt somewhat confused but appropriate; denies sob, cp, palpitations, syncope per RN, she was transferred from M/S floor to [facility] overnight for rapid AF (HRs in computer max listed is 110) - Current Medication List Current Medications: Active Medications Acetaminophen (Tylenol -) 650 mg PO Q6H PRN PRN Reason: FEVER OR PAIN Albuterol/Ipratropium (Duoneb -) 1 amp NEB Q4H PRN PRN Reason: ASTHMA Aspirin (Asa -) 81 mg PO DAILY [facility] Carbidopa/Levodopa (Sinemet 25/100 -) 1 each PO TID [facility] Last Admin: 06/04/16 06:24 Dose: 1 each Docusate Sodium (Colace -) 100 mg PO BID PRN PRN Reason: CONSTIPATION Furosemide (Lasix Injection -) 40 mg IVPB BIDLASIX [facility] Last Admin: 06/04/16 06:24 Dose: 40 mg Pantoprazole Sodium (Protonix 40mg Ivpb (Pre-Docked)) 100 mls @ 200 mls/hr IVPB DAILY [facility] Last Admin: 06/03/16 09:39 Dose: 200 mls/hr Insulin Aspart (Novolog Vial Sliding Scale -) 1 vial SQ ACHS BLESSING PRN Reason: Protocol Last Admin: 06/04/16 06:29 Dose: 6 units Lactobacillus Acidophilus (Bacid -) 1 tab PO DAILY [facility] Last Admin: 06/03/16 09:39 Dose: 1 tab Loratadine (Claritin -) 10 mg PO DAILY [facility] Last Admin: 06/03/16 09:39 Dose: 10 mg Methylprednisolone Sodium Succinate (Solu-Medrol -) 40 mg IVPB Q8H-IV [facility] Last Admin: 06/04/16 01:01 Dose: 40 mg Metoprolol Succinate (Toprol Xl -) 25 mg PO DAILY [facility] Last Admin: 06/03/16 09:39 Dose: 25 mg Multivitamins/Minerals/Vitamin C (Tab-A-Vit -) 1 tab PO DAILY [facility] Last Admin: 06/03/16 09:39 Dose: 1 tab Oxybutynin Chloride (Ditropan -) 5 mg PO BID [facility] Last Admin: 06/03/16 21:53 Dose: 5 mg Vancomycin HCl (Vancomycin Oral Solution) 250 mg PO QID [facility] Last Admin: 06/03/16 21:53 Dose: 250 mg - Objective Vital Signs: Vital Signs Temperature 97.6 F 06/04/16 06:00 Pulse Rate 88 06/04/16 06:00 Respiratory Rate 18 06/04/16 06:00 Blood Pressure 126/74 06/04/16 06:00 O2 Sat by Pulse Oximetry (%) 96 06/04/16 05:39 Constitutional: Yes: Well Nourished, No Distress, Calm Cardiovascular: Yes: Pulse Irregular, S1, S2. No: Gallop, Murmur Respiratory: Yes: Regular, CTA Bilaterally. No: Accessory Muscle Use, Rales, Wheezes Extremities: No: Cold Edema: No Neurological: Yes: Alert. No: Seizure Psychiatric: No: Agitated Labs: CBC, BMP 06/04/16 05:35 06/04/16 05:35 INR, PTT INR 3.24 (0.82-1.09) H D 06/03/16 08:15 - ....Imaging EKG: Other (tele: AF, good HRs) Assessment/Plan echo 2012: nl lv/rv. mod benito. - JON measured at 0.9, but PG and MG only , mod MAC. mod MR/TR. RVSP 46 echo 05/2016: tds; nl lv/rv, benito, mild mr/tr, rvsp 30-40, mild cxr: no chf a/p: 89 yo f with h/o dementia, cva, htn, niddm, afib on coumadin, mild as, mod mr, mild ar sent from [place] for possible pna and coughing. sob, cough, ? aspiration pneumonitis, ? acute diastolic chf exacerbation: -pt dementia limits hx; bnp mildl elevated 1800 (2800 here 2012), crackles on lung exam with clear cxr--treated with iv lasix for possible mild chf -06/04: bun and bicarb rising--likely intravasc vol depletion starting -BDs, abx, steroids per pulm afib with h/o CVA: - HR currently well controlled on tele; cont same metoprolol - hi CHADS-VASC with prior CVA (7) - has hx of falls so AC stopped by dr rivera on recent admit here, changed to ASA 81 (sent to SNF 05/25) - i disc'd case with him at that time--rec'd reconsider AC in future if enters supervised environment and falls risk seems to have resolved - she was resumed AC upon entering SNF as was felt to be at safe risk of falls at that time - AC has now been d/c'd and ASA restarted - defer decisions to PMD following her in SNF based on level of supervision there, pt compliance with waiting for assistance for all transfers, and overall assessment of her falls risk there--per our prior communications about this pt anemia: -recently with rectal bleed s/p PRBCs here -EGD/FOC showed no bleeding culprit on EGD; rectal ulcerations found and ? pseudomembrane--cleared to resume AC per GI at that time -hgb stable, monitor closely back on warfarin HTN -controlled on bb positive trops: -borderline elevated trops with flat trend (0.1 x3) and nl ck, no ischemic ecg changes--not consistent with acs will plan to d/c telemetry tomorrow if remains with good HR control > 24 hrs
[2016-06-04 10:05] LABS: PROTHROMBIN TIME (PATIENT) 48.6 SEC (9.98-11.88)
[2016-06-04 10:09] LABS: INR 4.29 (0.82-1.09)
[2016-06-04] MEDS ORDERED: PT OWN MED DRAWER 7, Y5N ONE ×2 (10:59→14:17)
[2016-06-04] MEDS: METOPROLOL SUCCINATE 25 MG TAB.SR.24H (FP) PO SCH (11:05)
[2016-06-04] MEDS: OXYBUTYNIN CHLORIDE 5 MG TABLET PO SCH ×2 (11:05→21:50)
[2016-06-04] MEDS: ASPIRIN 81 MG CHEWABLE TABLETS PO SCH (11:05)
[2016-06-04] MEDS: PANTOPRAZOLE SODIUM 100 ML IVPB SCH (11:06)
[2016-06-04] MEDS: LACTOBACILLUS ACIDOPHILUS 1 EACH TAB (FP) PO SCH (11:06)
[2016-06-04] MEDS: LORATADINE 10 MG TABLET PO SCH (11:06)
[2016-06-04] MEDS: MULTIVITAMINS (DAILY MVI) TABLET (FP) PO SCH (11:06)
[2016-06-04] MEDS: VANCOMYCIN 250 MG/5 ML ORAL SOLUTION PO SCH ×4 (11:07→21:51)
--- NOTE | 2016-06-04 11:21 | PN ---
Progress Note, Physician - Current Medication List Current Medications: Active Medications Acetaminophen (Tylenol -) 650 mg PO Q6H PRN PRN Reason: FEVER OR PAIN Albuterol/Ipratropium (Duoneb -) 1 amp NEB Q4H PRN PRN Reason: ASTHMA Aspirin (Asa -) 81 mg PO DAILY [facility] Carbidopa/Levodopa (Sinemet 25/100 -) 1 each PO TID [facility] Last Admin: 06/04/16 06:24 Dose: 1 each Docusate Sodium (Colace -) 100 mg PO BID PRN PRN Reason: CONSTIPATION Furosemide (Lasix Injection -) 40 mg IVPB BIDLASIX [facility] Last Admin: 06/04/16 06:24 Dose: 40 mg Pantoprazole Sodium (Protonix 40mg Ivpb (Pre-Docked)) 100 mls @ 200 mls/hr IVPB DAILY [facility] Last Admin: 06/03/16 09:39 Dose: 200 mls/hr Insulin Aspart (Novolog Vial Sliding Scale -) 1 vial SQ ACHS [facility] PRN Reason: Protocol Last Admin: 06/04/16 06:29 Dose: 6 units Lactobacillus Acidophilus (Bacid -) 1 tab PO DAILY [facility] Last Admin: 06/03/16 09:39 Dose: 1 tab Loratadine (Claritin -) 10 mg PO DAILY [facility] Last Admin: 06/03/16 09:39 Dose: 10 mg Methylprednisolone Sodium Succinate (Solu-Medrol -) 40 mg IVPB Q8H-IV [facility] Last Admin: 06/04/16 01:01 Dose: 40 mg Metoprolol Succinate (Toprol Xl -) 25 mg PO DAILY [facility] [place] Last Admin: 06/03/16 09:39 Dose: 25 mg Multivitamins/Minerals/Vitamin C (Tab-A-Vit -) 1 tab PO DAILY [facility] Last Admin: 06/03/16 09:39 Dose: 1 tab Oxybutynin Chloride (Ditropan -) 5 mg PO BID [facility] Last Admin: 06/03/16 21:53 Dose: 5 mg Vancomycin HCl (Vancomycin Oral Solution) 250 mg PO QID [facility] Last Admin: 06/03/16 21:53 Dose: 250 mg - Objective Vital Signs: Vital Signs Temperature 97.6 F 06/04/16 06:00 Pulse Rate 88 06/04/16 06:00 Respiratory Rate 18 06/04/16 06:00 Blood Pressure 126/74 06/04/16 06:00 O2 Sat by Pulse Oximetry (%) 96 06/04/16 05:39 Cardiovascular: Yes: S1, S2 Respiratory: Yes: Diminished Gastrointestinal: Yes: Normal Bowel Sounds, Soft Labs: CBC, BMP 06/04/16 05:35 06/04/16 05:35 INR, PTT INR 4.29 (0.82-1.09) H* D 06/04/16 09:00 Assessment/Plan 89-year-old female sent to the ED for evaluation of cough, and a positive infiltrate seen on chest x-ray that was taken recently. Patient denies chest pain, shortness of breath, abdominal pain, back pain, headache or nausea. He also denies chills or fever. As stated A. fib currently on Coumadin, patient also with history of recent Right ankle fracture requiring casting. Patient also with history of CHF and is currently on Lasix. (1) Aspiration pneumonia Code(s): J69.0 - PNEUMONITIS DUE TO INHALATION OF FOOD AND VOMIT Qualifiers: Aspiration pneumonia type: unspecified Laterality: unspecified laterality ST & ID CONSULTED NO IV ABx (2) Atrial fibrillation Code(s): I48.91 - UNSPECIFIED ATRIAL FIBRILLATION APPRECIATE CARDIO CONSULT HOLD AC 2/2 H/O FALLS ASA 81 (3) CVA, old, cognitive deficits Code(s): I69.31 - COGNITIVE DEFICITS FOLLOWING CEREBRAL INFARCT * DO NOT USE * (4) Dementia Code(s): F03.90 - UNSPECIFIED DEMENTIA WITHOUT BEHAVIORAL DISTURBANCE (5) Retaining fluid Code(s): E87.70 - FLUID OVERLOAD, UNSPECIFIED (6) HTN (hypertension) Code(s): I10 - ESSENTIAL (PRIMARY) HYPERTENSION (7) Diabetes Code(s): E11.9 - TYPE 2 DIABETES MELLITUS WITHOUT COMPLICATIONS Qualifiers: Diabetes mellitus complication status: with kidney complications Diabetes mellitus complication detail: with chronic kidney disease BS 330 -> BGM/ISS (8) C. difficile colitis Code(s): A04.7 - ENTEROCOLITIS DUE TO CLOSTRIDIUM DIFFICILE CONFIRMED BY ID [email or web address] AT [place] ON ABx
--- NOTE | 2016-06-04 13:31 | PN ---
Progress Note, Physician History of Present Illness: Renal f/u Pt denies any complaints Being treated for C Diff Bun rising on the BID lasix and steroids and HCO3 rising despite diarrhea 1/2 NS started earlier today - Current Medication List Current Medications: Active Medications Acetaminophen (Tylenol -) 650 mg PO Q6H PRN PRN Reason: FEVER OR PAIN Albuterol/Ipratropium (Duoneb -) 1 amp NEB Q4H PRN PRN Reason: ASTHMA Aspirin (Asa -) 81 mg PO DAILY [facility] Last Admin: 06/04/16 11:05 Dose: 81 mg Carbidopa/Levodopa (Sinemet 25/100 -) 1 each PO TID [facility] Last Admin: 06/04/16 06:24 Dose: 1 each Docusate Sodium (Colace -) 100 mg PO BID PRN PRN Reason: CONSTIPATION Furosemide (Lasix Injection -) 40 mg IVPB BIDLASIX [facility] Last Admin: 06/04/16 06:24 Dose: 40 mg Pantoprazole Sodium (Protonix 40mg Ivpb (Pre-Docked)) 100 mls @ 200 mls/hr IVPB DAILY [facility] Last Admin: 06/04/16 11:06 Dose: 200 mls/hr Potassium Chloride/Sodium Chloride (1/2ns+20meq Kcl) 1,000 mls @ 42 mls/hr IV ASDIR [facility] Insulin Aspart (Novolog Vial Sliding Scale -) 1 vial SQ ACHS BLESS[facility] PRN Reason: Protocol Last Admin: 06/04/16 06:29 Dose: 6 units Lactobacillus Acidophilus (Bacid -) 1 tab PO DAILY [facility] Last Admin: 06/04/16 11:06 Dose: 1 tab Loratadine (Claritin -) 10 mg PO DAILY [facility] Last Admin: 06/04/16 11:06 Dose: 10 mg Methylprednisolone Sodium Succinate (Solu-Medrol -) 40 mg IVPB Q8H-IV [facility] Last Admin: 06/04/16 11:07 Dose: 40 mg Metoprolol Succinate (Toprol Xl -) 25 mg PO DAILY [facility] Last Admin: 06/04/16 11:05 Dose: 25 mg Multivitamins/Minerals/Vitamin C (Tab-A-Vit -) 1 tab PO DAILY [facility] Last Admin: 06/04/16 11:06 Dose: 1 tab Oxybutynin Chloride (Ditropan -) 5 mg PO BID [facility] Last Admin: 06/04/16 11:05 Dose: 5 mg Vancomycin HCl (Vancomycin Oral Solution) 250 mg PO QID [facility] Last Admin: 06/04/16 11:07 Dose: 250 mg - Objective Vital Signs: Vital Signs Temperature 97.6 F 06/04/16 06:00 Pulse Rate 88 06/04/16 06:00 Respiratory Rate 18 06/04/16 06:00 Blood Pressure 126/74 06/04/16 06:00 O2 Sat by Pulse Oximetry (%) 96 06/04/16 05:39 Constitutional: Yes: No Distress Cardiovascular: Yes: Pulse Irregular, S1, S2 Respiratory: Yes: Other (Few crackles at the posterior bases) Gastrointestinal: Yes: Soft. No: Tenderness, Rebound Edema: No Labs: CBC, BMP 06/04/16 05:35 06/04/16 05:35 INR, PTT INR 4.29 (0.82-1.09) H* D 06/04/16 09:00 - ....Imaging Chest X-ray: Report Reviewed (Lungs clear though heart was enlarged) Assessment/Plan Impression Volume contraction in pt with loose stools from C Diff UTI CHF-compensated HTN A-fib DM Dementia Plan IVF as ordered for now Discussed with cardiology and to hold lasix for now and reassess in am Once HCO3 and BUN better D/C IVF and consider restarting the lasix as [address] Hawkins
[2016-06-04] MEDS: SODIUM CHLORIDE 0.45%/POT 1,000 ML IV SCH (14:41)
--- NOTE | 2016-06-04 15:10 | PN ---
Progress Note (short form) - Note Progress Note: PULMONARY NO OVERALL CHANGE IN EXAM LABS/MEDS/NOTES/MICRO/IMAGING REVIEWED - Problems (1) Aspiration pneumonia Code(s): J69.0 - PNEUMONITIS DUE TO INHALATION OF FOOD AND VOMIT Qualifiers: Aspiration pneumonia type: unspecified Laterality: unspecified laterality (2) HTN (hypertension) Code(s): I10 - ESSENTIAL (PRIMARY) HYPERTENSION (3) Hypoxemia Code(s): R09.02 - HYPOXEMIA (4) Tachycardia Code(s): R00.0 - TACHYCARDIA, UNSPECIFIED (5) Anemia Code(s): D64.9 - ANEMIA, UNSPECIFIED Qualifiers: Other causes of anemia: acute posthemorrhagic (6) Atrial fibrillation Code(s): I48.91 - UNSPECIFIED ATRIAL FIBRILLATION (7) CVA, old, cognitive deficits Code(s): I69.31 - COGNITIVE DEFICITS FOLLOWING CEREBRAL INFARCT * DO NOT USE * Assessment/Plan CULTURES NON-REVEALING CONTINUE ANTIBIOTICS AGREE WITH MBS HAVE ADJUSTED STEROIDS/CONTINUE PRN BRONCHODILATION/SUPPLEMENTAL O2 TREAT STOOL FOR CDIOCTAVIA ALVARADO MD Problem List - Problems (1) Aspiration pneumonia Code(s): J69.0 - PNEUMONITIS DUE TO INHALATION OF FOOD AND VOMIT Qualifiers: Aspiration pneumonia type: unspecified Laterality: unspecified laterality (2) HTN (hypertension) Code(s): I10 - ESSENTIAL (PRIMARY) HYPERTENSION (3) Hypoxemia Code(s): R09.02 - HYPOXEMIA (4) Tachycardia Code(s): R00.0 - TACHYCARDIA, UNSPECIFIED (5) Anemia Code(s): D64.9 - ANEMIA, UNSPECIFIED Qualifiers: Other causes of anemia: acute posthemorrhagic (6) Atrial fibrillation Code(s): I48.91 - UNSPECIFIED ATRIAL FIBRILLATION (7) CVA, old, cognitive deficits Code(s): I69.31 - COGNITIVE DEFICITS FOLLOWING CEREBRAL INFARCT * DO NOT USE *
[2016-06-05] MEDS: methylPREDNISolone NA SUCC 40 MG/1 ML VIAL IVPB SCH ×3 (02:30→22:05)
[2016-06-05] MEDS: CARBIDOPA/LEVODOPA 25/100 TABLET (FP) PO SCH ×3 (06:59→22:05)
[2016-06-05] MEDS: INSULIN SLIDING SCALE (NOVOLOG) 1 VIAL SQ SCH ×4 (06:59→22:13)
[2016-06-05 07:22] LABS: MCH 28.8 pg (25.7-33.7); MEAN CELL VOLUME 87.4 fl (80-96); MEAN PLT VOLUME 8.2 fl (7.5-11.1); NEUTROPHILS 93.9 % (42.8-82.8); PLATELET COUNT 391 K/MM3 (134-434); RDW 16.4 % (11.6-15.6); WHITE BLOOD COUNT 11.1 K/mm3 (4.0-10.0)
[2016-06-05 07:32] LABS: INR 3.65 (0.82-1.09); PROTHROMBIN TIME (PATIENT) 41.2 SEC (9.98-11.88)
[2016-06-05 08:04] LABS: ALBUMIN 2.4 g/dl (3.4-5.0); ANION GAP 10 (8-16); BILIRUBIN,TOTAL 0.7 mg/dL (0.2-1.0); CALCIUM 8.1 mg/dL (8.5-10.1); CO2 33 mmol/L (21-32); CREATININE 0.8 mg/dL (0.55-1.02); GLUCOSE,RANDOM 257 mg/dL (74-106); SGOT/AST 15 U/L (15-37); SGPT/ALT < 6 U/L (12-78); TOT PROT 7.1 g/dl (6.4-8.2)
[2016-06-05 08:05] LABS: ALK PHOS 165 U/L (45-117)
--- NOTE | 2016-06-05 09:19 | PN ---
Progress Note (short form) - Note Progress Note: s: pt somewhat confused but appropriate; denies sob, cp, palpitations, syncope Current Medications Generic Name Dose Route Start Last Admin Trade Name Freq PRN Reason Stop Dose Admin Acetaminophen 650 mg 06/02/16 18:53 Tylenol - PO Q6H PRN FEVER OR PAIN Albuterol/Ipratropium 1 amp 06/02/16 18:53 Duoneb - NEB Q4H PRN ASTHMA Aspirin 81 mg 06/04/16 10:00 06/04/16 11:05 Asa - PO 81 mg DAILY BLESSING Administration Carbidopa/Levodopa 1 each 06/02/16 22:00 06/05/16 06:59 Sinemet 25/100 - PO 1 each TID BLESSING Administration Docusate Sodium 100 mg 06/02/16 18:53 Colace - PO BID PRN CONSTIPATION Pantoprazole Sodium 100 mls @ 200 mls/hr 06/02/16 19:00 06/04/16 11:06 Protonix 40mg Ivpb (Pre-Docked) IVPB 200 mls/hr DAILY [facility] Administration Potassium Chloride/Sodium Chloride 1,000 mls @ 42 mls/hr 06/04/16 11:30 14:41 1/2ns+20meq Kcl IV 42 mls/hr ASDIR BLESSING Administration Insulin Aspart 1 vial 06/03/16 16:30 06/05/16 06:59 Novolog Vial Sliding Scale - SQ 6 units ACHS BLESSING Administration Protocol Lactobacillus Acidophilus 1 tab 06/03/16 10:00 06/04/16 11:06 Bacid - PO 1 tab DAILY [facility] Administration Loratadine 10 mg 06/03/16 10:00 06/04/16 11:06 Claritin - PO 10 mg DAILY [facility] Administration Methylprednisolone Sodium Succinate 40 mg 06/03/16 18:00 06/05/16 02:30 Solu-Medrol - IVPB 40 mg Q8H-IV BLESSING Administration Metoprolol Succinate 25 mg 06/03/16 10:00 06/04/16 11:05 Toprol Xl - PO 25 mg DAILY [facility]ESS[facility] Administration Multivitamins/Minerals/Vitamin C 1 tab 06/03/16 10:00 06/04/16 11:06 Tab-A-Vit - PO 1 tab DAILY [facility]ESS[facility] Administration Oxybutynin Chloride 5 mg 06/02/16 22:00 06/04/16 21:50 Ditropan - PO 5 mg BID BLESSING Administration Vancomycin HCl 250 mg 06/02/16 22:00 06/04/16 21:51 Vancomycin Oral Solution PO 250 mg QID BLESSING Administration - Objective Vital Signs: Vital Signs Period Temp Pulse Resp BP Sys/[place] Pulse Ox Last 24 Hr 96.8 F-98.2 F 93-103 19-20 135-154/64-94 99 Constitutional: Yes: Well Nourished, No Distress, Calm Cardiovascular: Yes: Pulse Irregular, S1, S2. No: Gallop, Murmur Respiratory: Yes: Regular, CTA Bilaterally. No: Accessory Muscle Use, Rales, Wheezes Extremities: No: Cold Edema: No Neurological: Yes: Alert. No: Seizure Psychiatric: No: Agitated no jaundice diaphoresis Labs: CBC, BMP 06/05/16 05:35 06/05/16 05:35 - ....Imaging EKG: Other (tele: AF, good HRs) echo 2012: nl lv/rv. mod benito. - JON measured at 0.9, but PG and MG only , mod MAC. mod MR/TR. RVSP 46 echo 05/2016: tds; nl lv/rv, benito, mild mr/tr, rvsp 30-40, mild cxr: no chf a/p: 89 yo f with h/o dementia, cva, htn, niddm, afib on coumadin, mild as, mod mr, mild ar sent from [place] for possible pna and coughing. sob, cough, possible aspiration pneumonitis, possible acute diastolic chf exacerbation: -pt dementia limits hx; bnp mildl elevated 1800 (2800 here 2012), crackles on lung exam with clear cxr--treated with iv lasix for possible mild chf -06/04: bun and bicarb rising--likely intravasc vol depletion starting so lasix held -06/05: vol stable, cont to hold lasix for now. when bicarb improves can resume lasix 40 po qd for maintenance -BDs, abx, steroids per pulm afib with h/o CVA: - HR currently well controlled on tele; cont same metoprolol - hi CHADS-VASC with prior CVA (7) - has hx of falls so AC stopped by dr rivera on recent admit here, changed to ASA 81 (sent to SNF 05/25) - disc'd case with him at that time--rec'd reconsider AC in future if enters supervised environment and falls risk seems to have resolved - she was resumed AC upon entering SNF as was felt to be at safe risk of falls at that time - AC has now been d/c'd and ASA restarted - defer decisions to PMD following her in SNF based on level of supervision there, pt compliance with waiting for assistance for all transfers, and overall assessment of her falls risk there--per our prior communications about this pt anemia: -recently with rectal bleed s/p PRBCs here -EGD/FOC showed no bleeding culprit on EGD; rectal ulcerations found and ? pseudomembrane--cleared to resume AC per GI at that time -hgb stable HTN -controlled on bb positive trops: -borderline elevated trops with flat trend and nl ck, no ischemic ecg changes-- not consistent with acs
[2016-06-05] MEDS: PANTOPRAZOLE SODIUM 100 ML IVPB SCH (10:14)
[2016-06-05] MEDS: MULTIVITAMINS (DAILY MVI) TABLET (FP) PO SCH (10:15)
[2016-06-05] MEDS: LACTOBACILLUS ACIDOPHILUS 1 EACH TAB (FP) PO SCH (10:15)
[2016-06-05] MEDS: ASPIRIN 81 MG CHEWABLE TABLETS PO SCH (10:15)
[2016-06-05] MEDS: VANCOMYCIN 250 MG/5 ML ORAL SOLUTION PO SCH ×4 (10:15→22:05)
[2016-06-05] MEDS: OXYBUTYNIN CHLORIDE 5 MG TABLET PO SCH ×2 (10:15→22:05)
[2016-06-05] MEDS: LORATADINE 10 MG TABLET PO SCH (10:15)
[2016-06-05] MEDS: METOPROLOL SUCCINATE 25 MG TAB.SR.24H (FP) PO SCH (10:15)
--- NOTE | 2016-06-05 11:16 | PN ---
Progress Note, Physician History of Present Illness: Renal f/u Pt remains off lasix and on 1/2 NS She denies any complaints - Current Medication List Current Medications: Active Medications Acetaminophen (Tylenol -) 650 mg PO Q6H PRN PRN Reason: FEVER OR PAIN Albuterol/Ipratropium (Duoneb -) 1 amp NEB Q4H PRN PRN Reason: ASTHMA Aspirin (Asa -) 81 mg PO DAILY [facility] Last Admin: 06/05/16 10:15 Dose: 81 mg Carbidopa/Levodopa (Sinemet 25/100 -) 1 each PO TID [facility] Last Admin: 06/05/16 06:59 Dose: 1 each Docusate Sodium (Colace -) 100 mg PO BID PRN PRN Reason: CONSTIPATION Pantoprazole Sodium (Protonix 40mg Ivpb (Pre-Docked)) 100 mls @ 200 mls/hr IVPB DAILY [facility] Last Admin: 06/05/16 10:14 Dose: 200 mls/hr Potassium Chloride/Sodium Chloride (1/2ns+20meq Kcl) 1,000 mls @ 42 mls/hr IV ASDIR [facility] Last Admin: 06/04/16 14:41 Dose: 42 mls/hr Insulin Aspart (Novolog Vial Sliding Scale -) 1 vial SQ ACHS [facility] PRN Reason: Protocol Last Admin: 06/05/16 06:59 Dose: 6 units Lactobacillus Acidophilus (Bacid -) 1 tab PO DAILY [facility] Last Admin: 06/05/16 10:15 Dose: 1 tab Loratadine (Claritin -) 10 mg PO DAILY [facility] Last Admin: 06/05/16 10:15 Dose: 10 mg Methylprednisolone Sodium Succinate (Solu-Medrol -) 40 mg IVPB Q8H-IV [facility] Last Admin: 06/05/16 10:15 Dose: 40 mg Metoprolol Succinate (Toprol Xl -) 25 mg PO DAILY [facility] Last Admin: 06/05/16 10:15 Dose: 25 mg Multivitamins/Minerals/Vitamin C (Tab-A-Vit -) 1 tab PO DAILY [facility] Last Admin: 06/05/16 10:15 Dose: 1 tab Oxybutynin Chloride (Ditropan -) 5 mg PO BID [facility] Last Admin: 06/05/16 10:15 Dose: 5 mg Vancomycin HCl (Vancomycin Oral Solution) 250 mg PO QID [facility] Last Admin: 06/05/16 10:15 Dose: 250 mg - Objective Vital Signs: Vital Signs Temperature 97.2 F L 06/05/16 10:00 Pulse Rate 98 H 06/05/16 10:00 Respiratory Rate 18 06/05/16 10:00 Blood Pressure 158/97 06/05/16 10:00 O2 Sat by Pulse Oximetry (%) 99 06/04/16 21:00 Selected Entries 06/05/16 06/05/16 06:00 10:00 Pulse Rate 98 H 98 H Blood Pressure 135/94 158/97 Constitutional: Yes: No Distress Cardiovascular: Yes: Pulse Irregular, S1, S2 Respiratory: Yes: CTA Bilaterally Gastrointestinal: Yes: Soft. No: Tenderness, Rebound Edema: No Labs: CBC, BMP 06/05/16 05:35 06/05/16 05:35 INR, PTT INR 3.65 (0.82-1.09) H 06/05/16 05:35 Laboratory Tests 06/05/16 05:35 INR 3.65 H Assessment/Plan Impression Pre renal azotemia from Volume contraction in pt with loose stools from C Diff UTI CHF-compensated HTN A-fib with high INR DM Dementia Plan IVF till HCO3 lower Consider increasing the BP if BP remains elevated Once HCO3 and BUN better D/C IVF and consider restarting the lasix as 40 mgs po daily Adjust anticoagulation as per INR Dr Hawkins
[2016-06-05] MEDS: SODIUM CHLORIDE 0.45%/POT 1,000 ML IV SCH (11:59)
--- NOTE | 2016-06-05 12:12 | PN ---
Progress Note, Physician History of Present Illness: IN BED NO COMPLAINTS THIS AM - Current Medication List Current Medications: Active Medications Acetaminophen (Tylenol -) 650 mg PO Q6H PRN PRN Reason: FEVER OR PAIN Albuterol/Ipratropium (Duoneb -) 1 amp NEB Q4H PRN PRN Reason: ASTHMA Aspirin (Asa -) 81 mg PO DAILY [facility] Last Admin: 06/05/16 10:15 Dose: 81 mg Carbidopa/Levodopa (Sinemet 25/100 -) 1 each PO TID [facility] Last Admin: 06/05/16 06:59 Dose: 1 each Docusate Sodium (Colace -) 100 mg PO BID PRN PRN Reason: CONSTIPATION Pantoprazole Sodium (Protonix 40mg Ivpb (Pre-Docked)) 100 mls @ 200 mls/hr IVPB DAILY [facility] Last Admin: 06/05/16 10:14 Dose: 200 mls/hr Potassium Chloride/Sodium Chloride (1/2ns+20meq Kcl) 1,000 mls @ 42 mls/hr IV ASDIR [facility] Last Admin: 06/05/16 11:59 Dose: 42 mls/hr Insulin Aspart (Novolog Vial Sliding Scale -) 1 vial SQ ACHS [facility] PRN Reason: Protocol Last Admin: 06/05/16 11:59 Dose: 4 units Lactobacillus Acidophilus (Bacid -) 1 tab PO DAILY [facility] Last Admin: 06/05/16 10:15 Dose: 1 tab Loratadine (Claritin -) 10 mg PO DAILY [facility] Last Admin: 06/05/16 10:15 Dose: 10 mg Methylprednisolone Sodium Succinate (Solu-Medrol -) 40 mg IVPB Q8H-IV [facility] Last Admin: 06/05/16 10:15 Dose: 40 mg Metoprolol Succinate (Toprol Xl -) 25 mg PO DAILY [facility] Last Admin: 06/05/16 10:15 Dose: 25 mg Multivitamins/Minerals/Vitamin C (Tab-A-Vit -) 1 tab PO DAILY [facility] Last Admin: 06/05/16 10:15 Dose: 1 tab Oxybutynin Chloride (Ditropan -) 5 mg PO BID [facility] Last Admin: 06/05/16 10:15 Dose: 5 mg Vancomycin HCl (Vancomycin Oral Solution) 250 mg PO QID [facility] Last Admin: 06/05/16 10:15 Dose: 250 mg - Objective Vital Signs: Vital Signs Temperature 97.2 F L 06/05/16 10:00 Pulse Rate 98 H 06/05/16 10:00 Respiratory Rate 18 06/05/16 10:00 Blood Pressure 158/97 06/05/16 10:00 O2 Sat by Pulse Oximetry (%) 96 06/05/16 09:00 Cardiovascular: Yes: Regular Rate and Rhythm Respiratory: Yes: Regular, CTA Bilaterally Gastrointestinal: Yes: Normal Bowel Sounds, Soft Labs: CBC, BMP 06/05/16 05:35 06/05/16 05:35 INR, PTT INR 3.65 (0.82-1.09) H 06/05/16 05:35 Assessment/Plan 89-year-old female sent to the ED for evaluation of cough, and a positive infiltrate seen on chest x-ray that was taken recently. Patient denies chest pain, shortness of breath, abdominal pain, back pain, headache or nausea. He also denies chills or fever. As stated A. fib currently on Coumadin, patient also with history of recent Right ankle fracture requiring casting. Patient also with history of CHF and is currently on Lasix. (1) COPD NOT ON IV ABx PER ID ST & ID CONSULTED CXR NO ACUTE DS IV STEROIDS--TAPER NEBS (2) Atrial fibrillation Code(s): I48.91 - UNSPECIFIED ATRIAL FIBRILLATION APPRECIATE CARDIO CONSULT HOLD AC 2/2 H/O FALLS ASA 81 (3) CVA, old, cognitive deficits Code(s): I69.31 - COGNITIVE DEFICITS FOLLOWING CEREBRAL INFARCT * DO NOT USE * (4) Dementia Code(s): F03.90 - UNSPECIFIED DEMENTIA WITHOUT BEHAVIORAL DISTURBANCE (5) Retaining fluid Code(s): E87.70 - FLUID OVERLOAD, UNSPECIFIED (6) HTN (hypertension) Code(s): I10 - ESSENTIAL (PRIMARY) HYPERTENSION (7) Diabetes Code(s): E11.9 - TYPE 2 DIABETES MELLITUS WITHOUT COMPLICATIONS Qualifiers: Diabetes mellitus complication status: with kidney complications Diabetes mellitus complication detail: with chronic kidney disease BS 330 -> BGM/ISS (8) C. difficile colitis Code(s): A04.7 - ENTEROCOLITIS DUE TO CLOSTRIDIUM DIFFICILE CONFIRMED POSITIVE AT [place] ON ABx--PO VANCO
[2016-06-06] MEDS: INSULIN SLIDING SCALE (NOVOLOG) 1 VIAL SQ SCH ×4 (06:47→22:48)
[2016-06-06] MEDS: CARBIDOPA/LEVODOPA 25/100 TABLET (FP) PO SCH ×3 (06:47→22:48)
[2016-06-06 07:50] LABS: INR 2.5 (0.82-1.09)
--- NOTE | 2016-06-06 08:31 | PN ---
Progress Note, Physician Chief Complaint: sob History of Present Illness: denies sob, cp, palpitation, dizzy - Current Medication List Current Medications: Active Medications Acetaminophen (Tylenol -) 650 mg PO Q6H PRN PRN Reason: FEVER OR PAIN Albuterol/Ipratropium (Duoneb -) 1 amp NEB Q4H PRN PRN Reason: ASTHMA Last Admin: 06/05/16 14:39 Dose: 1 amp Aspirin (Asa -) 81 mg PO DAILY [facility] Last Admin: 06/05/16 10:15 Dose: 81 mg Carbidopa/Levodopa (Sinemet 25/100 -) 1 each PO TID [facility] Last Admin: 06/06/16 06:47 Dose: 1 each Docusate Sodium (Colace -) 100 mg PO BID PRN PRN Reason: CONSTIPATION Insulin Aspart (Novolog Vial Sliding Scale -) 1 vial SQ ACHS [facility] PRN Reason: Protocol Last Admin: 06/06/16 06:47 Dose: 6 units Lactobacillus Acidophilus (Bacid -) 1 tab PO DAILY [facility] Last Admin: 06/05/16 10:15 Dose: 1 tab Loratadine (Claritin -) 10 mg PO DAILY [facility] Last Admin: 06/05/16 10:15 Dose: 10 mg Methylprednisolone Sodium Succinate (Solu-Medrol -) 40 mg IVPB BID [facility] Last Admin: 06/05/16 22:05 Dose: 40 mg Metoprolol Succinate (Toprol Xl -) 25 mg PO DAILY [facility] Last Admin: 06/05/16 10:15 Dose: 25 mg Multivitamins/Minerals/Vitamin C (Tab-A-Vit -) 1 tab PO DAILY [facility] Last Admin: 06/05/16 10:15 Dose: 1 tab Oxybutynin Chloride (Ditropan -) 5 mg PO BID [facility] Last Admin: 06/05/16 22:05 Dose: 5 mg Pantoprazole Sodium (Protonix -) 40 mg PO DAILY [facility] Vancomycin HCl (Vancomycin Oral Solution) 250 mg PO QID [facility] Last Admin: 06/05/16 22:05 Dose: 250 mg - Objective Vital Signs: Vital Signs Temperature 98.1 F 06/06/16 06:00 Pulse Rate 88 06/06/16 06:00 Respiratory Rate 18 06/06/16 06:00 Blood Pressure 128/76 06/06/16 06:00 O2 Sat by Pulse Oximetry (%) 96 06/06/16 06:00 Constitutional: Yes: Well Nourished, No Distress, Calm Cardiovascular: Yes: Regular Rate and Rhythm, S1, S2. No: JVD, Gallop, Murmur Respiratory: Yes: Regular, Rales. No: Accessory Muscle Use Extremities: No: Cold Edema: No (RLE cast) Neurological: Yes: Alert. No: Seizure Psychiatric: No: Agitated Labs: CBC, BMP 06/05/16 05:35 06/05/16 05:35 INR, PTT INR 2.50 (0.82-1.09) H D 06/06/16 05:35 - ....Imaging EKG: Other (tele: sinus, VT x 6b run) Assessment/Plan echo 2012: nl lv/rv. mod benito. - JON measured at 0.9, but PG and MG only , mod MAC. mod MR/TR. RVSP 46 echo 05/2016: tds; nl lv/rv, benito, mild mr/tr, rvsp 30-40, mild cxr: no chf a/p: 89 yo f with h/o dementia, cva, htn, niddm, afib on coumadin, mild as, mod mr, mild ar sent from [place] for possible pna and coughing. sob/cough, possible aspiration pneumonitis, possible acute diastolic chf exacerbation: -pt dementia limits hx; bnp mildly elevated 1800 (2800 here 2012), crackles on lung exam with clear cxr--treated with iv lasix for possible mild chf -06/04: bun and bicarb rising--likely intravasc vol depletion (in face of c. dif colitis with diarrhea)--lasix held, IVF started -previously on lasix 40 po qd home regimen, can resume prior to discharge once lytes/renal fxn normalized -BDs, abx, steroids per pulm afib with h/o CVA: - HR currently well controlled on tele; cont same metoprolol - hi CHADS-VASC with prior CVA (7) - has hx of falls so AC stopped by dr rivera on recent admit here, changed to ASA 81 (sent to SNF 05/25) - pt previously declined consideration of Watchman device for LA appendage closure - disc'd case with him at that time--rec'd reconsider AC in future if enters supervised environment and falls risk seems to have resolved - she was resumed AC upon entering SNF as was felt to be at safe risk of falls at that time - AC has now been d/c'd and ASA restarted - defer decisions to PMD following her in SNF based on level of supervision there, pt compliance with waiting for assistance for all transfers, and overall assessment of her falls risk there--per our prior communications about this pt VTach: -NSVT on tele overnight -rpt K/mag today--replete per usual -EF preserved, hence no further w/u or tx indicated -if lytes stable and no VT on tele 06/07, can d/c monitor anemia: -recently with rectal bleed s/p PRBCs here -EGD/FOC showed no bleeding culprit on EGD; rectal ulcerations found and ? pseudomembrane--cleared to resume AC per GI at that time -hgb stable HTN -controlled on bb positive trops: -borderline elevated trops with flat trend and nl ck, no ischemic ecg changes-- not consistent with acs
[2016-06-06] MEDS: VANCOMYCIN 250 MG/5 ML ORAL SOLUTION PO SCH ×4 (10:11→22:48)
[2016-06-06] MEDS: METOPROLOL SUCCINATE 25 MG TAB.SR.24H (FP) PO SCH (10:11)
[2016-06-06] MEDS: LACTOBACILLUS ACIDOPHILUS 1 EACH TAB (FP) PO SCH (10:11)
[2016-06-06] MEDS: MULTIVITAMINS (DAILY MVI) TABLET (FP) PO SCH (10:11)
[2016-06-06] MEDS: methylPREDNISolone NA SUCC 40 MG/1 ML VIAL IVPB SCH ×2 (10:11→22:48)
[2016-06-06] MEDS: OXYBUTYNIN CHLORIDE 5 MG TABLET PO SCH ×2 (10:11→22:47)
[2016-06-06] MEDS: ASPIRIN 81 MG CHEWABLE TABLETS PO SCH (10:11)
[2016-06-06] MEDS: PANTOPRAZOLE 40 MG TABLET (FP) PO SCH (10:11)
[2016-06-06] MEDS: LORATADINE 10 MG TABLET PO SCH (10:11)
[2016-06-06 10:23] LABS: CALCIUM 8.5 mg/dL (8.5-10.1); CREATININE 0.8 mg/dL (0.55-1.02); MAGNESIUM 2.4 mg/dL (1.8-2.4)
--- NOTE | 2016-06-06 11:31 | PN ---
Progress Note, Physician History of Present Illness: PULMONARY AWAKE,NAD.-TACHYPNEA - Current Medication List Current Medications: Active Medications Acetaminophen (Tylenol -) 650 mg PO Q6H PRN PRN Reason: FEVER OR PAIN Albuterol/Ipratropium (Duoneb -) 1 amp NEB Q4H PRN PRN Reason: ASTHMA Last Admin: 06/05/16 14:39 Dose: 1 amp Aspirin (Asa -) 81 mg PO DAILY [facility] Last Admin: 06/06/16 10:11 Dose: 81 mg Carbidopa/Levodopa (Sinemet 25/100 -) 1 each PO TID [facility] Last Admin: 06/06/16 06:47 Dose: 1 each Docusate Sodium (Colace -) 100 mg PO BID PRN PRN Reason: CONSTIPATION Insulin Aspart (Novolog Vial Sliding Scale -) 1 vial SQ ACHS [facility] PRN Reason: Protocol Last Admin: 06/06/16 06:47 Dose: 6 units Lactobacillus Acidophilus (Bacid -) 1 tab PO DAILY [facility] Last Admin: 06/06/16 10:11 Dose: 1 tab Loratadine (Claritin -) 10 mg PO DAILY [facility] Last Admin: 06/06/16 10:11 Dose: 10 mg Methylprednisolone Sodium Succinate (Solu-Medrol -) 40 mg IVPB BID [facility] Last Admin: 06/06/16 10:11 Dose: 40 mg Metoprolol Succinate (Toprol Xl -) 25 mg PO DAILY [facility] Last Admin: 06/06/16 10:11 Dose: 25 mg Multivitamins/Minerals/Vitamin C (Tab-A-Vit -) 1 tab PO DAILY [facility] Last Admin: 06/06/16 10:11 Dose: 1 tab Oxybutynin Chloride (Ditropan -) 5 mg PO BID [facility] Last Admin: 06/06/16 10:11 Dose: 5 mg Pantoprazole Sodium (Protonix -) 40 mg PO DAILY [facility] Last Admin: 06/06/16 10:11 Dose: 40 mg Vancomycin HCl (Vancomycin Oral Solution) 250 mg PO QID [facility] Last Admin: 06/06/16 10:11 Dose: 250 mg - Objective Vital Signs: Vital Signs Temperature 98.1 F 06/06/16 06:00 Pulse Rate 88 06/06/16 06:00 Respiratory Rate 18 06/06/16 06:00 Blood Pressure 128/76 06/06/16 06:00 O2 Sat by Pulse Oximetry (%) 96 06/06/16 06:00 Constitutional: Yes: Calm, Thin Eyes: Yes: WNL HENT: Yes: WNL Neck: Yes: WNL Cardiovascular: Yes: Pulse Irregular, S1, S2 Respiratory: Yes: Diminished Gastrointestinal: Yes: WNL Extremities: Yes: WNL Edema: No Labs: CBC, BMP 06/05/16 05:35 06/06/16 10:00 INR, PTT INR 2.50 (0.82-1.09) H D 06/06/16 05:35 Assessment/Plan Problem List - Problems (1) Aspiration pneumonia Code(s): J69.0 - PNEUMONITIS DUE TO INHALATION OF FOOD AND VOMIT Qualifiers: Aspiration pneumonia type: unspecified Laterality: unspecified laterality (2) HTN (hypertension) Code(s): I10 - ESSENTIAL (PRIMARY) HYPERTENSION (3) Hypoxemia Code(s): R09.02 - HYPOXEMIA (4) Tachycardia Code(s): R00.0 - TACHYCARDIA, UNSPECIFIED (5) Anemia Code(s): D64.9 - ANEMIA, UNSPECIFIED Qualifiers: Other causes of anemia: acute posthemorrhagic (6) Atrial fibrillation Code(s): I48.91 - UNSPECIFIED ATRIAL FIBRILLATION (7) CVA, old, cognitive deficits Code(s): I69.31 - COGNITIVE DEFICITS FOLLOWING CEREBRAL INFARCT * DO NOT USE * Assessment/Plan STEROIDS BRONCHODILATORS SUPPLEMENTAL O2 DR BEE
--- NOTE | 2016-06-06 12:08 | PN ---
Progress Note, CUSTOMER SERVICE CORRESPONDENCE CLERK - Note Progress Note: Selected Entries 06/04/16 06/04/16 06/05/16 14:00 19:26 01:54 Breakfast 75% Lunch 75% Supper 50% Temperature 98.1 F 06/05/16 06/05/16 06/05/16 06:00 10:00 14:00 Breakfast 50% Lunch 50% Supper Temperature 98.2 F 97.2 F L 06/05/16 06/05/16 06/05/16 18:00 19:06 22:00 Breakfast Lunch Supper 25% Temperature 97.8 F 98.2 F 06/06/16 06/06/16 02:00 06:00 Breakfast Lunch Supper Temperature 98.2 F 98.1 F Laboratory Tests 06/02/16 06/03/16 06/04/16 14:31 08:15 05:35 WBC 10.4 H D 8.8 13.4 H D 06/05/16 05:35 WBC 11.1 H Pt on reg chopped diet and thin liquid. Limited appetite.Wheeze/Cough improved today, per nursing.
--- NOTE | 2016-06-06 14:29 | PN ---
Progress Note, Physician History of Present Illness: Pt seen and examined at bedside. She appears fatigued. She denies shortness of breath. - Current Medication List Current Medications: Active Medications Acetaminophen (Tylenol -) 650 mg PO Q6H PRN PRN Reason: FEVER OR PAIN Albuterol/Ipratropium (Duoneb -) 1 amp NEB Q4H PRN PRN Reason: ASTHMA Last Admin: 06/05/16 14:39 Dose: 1 amp Aspirin (Asa -) 81 mg PO DAILY [facility] Last Admin: 06/06/16 10:11 Dose: 81 mg Carbidopa/Levodopa (Sinemet 25/100 -) 1 each PO TID [facility] Last Admin: 06/06/16 06:47 Dose: 1 each Docusate Sodium (Colace -) 100 mg PO BID PRN PRN Reason: CONSTIPATION Insulin Aspart (Novolog Vial Sliding Scale -) 1 vial SQ ACHS [facility] PRN Reason: Protocol Last Admin: 06/06/16 12:51 Dose: 4 units Lactobacillus Acidophilus (Bacid -) 1 tab PO DAILY [facility] Last Admin: 06/06/16 10:11 Dose: 1 tab Loratadine (Claritin -) 10 mg PO DAILY [facility] Last Admin: 06/06/16 10:11 Dose: 10 mg Methylprednisolone Sodium Succinate (Solu-Medrol -) 40 mg IVPB BID [facility] Last Admin: 06/06/16 10:11 Dose: 40 mg Metoprolol Succinate (Toprol Xl -) 25 mg PO DAILY [facility] Last Admin: 06/06/16 10:11 Dose: 25 mg Multivitamins/Minerals/Vitamin C (Tab-A-Vit -) 1 tab PO DAILY [facility] Last Admin: 06/06/16 10:11 Dose: 1 tab Oxybutynin Chloride (Ditropan -) 5 mg PO BID [facility] Last Admin: 06/06/16 10:11 Dose: 5 mg Pantoprazole Sodium (Protonix -) 40 mg PO DAILY [facility] Last Admin: 06/06/16 10:11 Dose: 40 mg Vancomycin HCl (Vancomycin Oral Solution) 250 mg PO QID [facility] Last Admin: 06/06/16 10:11 Dose: 250 mg - Objective Vital Signs: Vital Signs Temperature 97.8 F 06/06/16 10:00 Pulse Rate 98 H 06/06/16 10:00 Respiratory Rate 22 06/06/16 10:00 Blood Pressure 132/82 06/06/16 10:00 O2 Sat by Pulse Oximetry (%) 97 06/06/16 09:00 Constitutional: Yes: Calm Eyes: Yes: Conjunctiva Clear HENT: Yes: Atraumatic Neck: Yes: Supple Cardiovascular: Yes: S1, S2 Respiratory: Yes: CTA Bilaterally Gastrointestinal: Yes: Normal Bowel Sounds, Soft Genitourinary: Yes: Patel Present Musculoskeletal: Yes: Muscle Weakness Edema: No Neurological: Yes: Oriented Labs: CBC, BMP 06/05/16 05:35 06/06/16 10:00 INR, PTT INR 2.50 (0.82-1.09) H D 06/06/16 05:35 Assessment/Plan Current Medications Generic Name Dose Route Start Last Admin Trade Name Freq PRN Reason Stop Dose Admin Acetaminophen 650 mg 06/02/16 18:53 Tylenol - PO Q6H PRN FEVER OR PAIN Albuterol/Ipratropium 1 amp 06/02/16 18:53 06/05/16 14:39 Duoneb - NEB 1 amp Q4H PRN Administration ASTHMA Aspirin 81 mg 06/04/16 10:00 06/06/16 10:11 Asa - PO 81 mg DAILY [facility] Administration Carbidopa/Levodopa 1 each 06/02/16 22:00 06/06/16 06:47 Sinemet 25/100 - PO 1 each TID [facility] Administration Docusate Sodium 100 mg 06/02/16 18:53 Colace - PO BID PRN CONSTIP[facility] Insulin Aspart 1 vial 06/03/16 16:30 06/06/16 12:51 Novolog Vial Sliding Scale - SQ 4 units ACHS [facility] Administration Protocol Lactobacillus Acidophilus 1 tab 06/03/16 10:00 06/06/16 10:11 Bacid - PO 1 tab DAILY [facility] Administration Loratadine 10 mg 06/03/16 10:00 06/06/16 10:11 Claritin - PO 10 mg DAILY [facility] Administration Methylprednisolone Sodium Succinate 40 mg 06/05/16 22:00 06/06/16 10:11 Solu-Medrol - IVPB 40 mg BID [facility] Administration Metoprolol Succinate 25 mg 06/03/16 10:00 06/06/16 10:11 Toprol Xl - PO 25 mg DAILY [facility] Administration Multivitamins/Minerals/Vitamin C 1 tab 06/03/16 10:00 06/06/16 10:11 Tab-A-Vit - PO 1 tab DAILY [facility] Administration Oxybutynin Chloride 5 mg 06/02/16 22:00 06/06/16 10:11 Ditropan - PO 5 mg BID [facility] Administration Pantoprazole Sodium 40 mg 06/06/16 10:00 06/06/16 10:11 Protonix - PO 40 mg DAILY [facility] Administration Vancomycin HCl 250 mg 06/02/16 22:00 06/06/16 10:11 Vancomycin Oral Solution PO 250 mg QID [facility] Administration Impression 1. UTI 2. CHF 3. HTN 4. a-fib 5. DM 6. dementia 7. c.diff Plan - will continue to hold diuretics for now - will hold off fluids - repeat labs in am - steroids with taper - cont current meds - will follow Dr Gamez
--- NOTE | 2016-06-06 15:32 | PN ---
Progress Note, Physician - Current Medication List Current Medications: Active Medications Acetaminophen (Tylenol -) 650 mg PO Q6H PRN PRN Reason: FEVER OR PAIN Albuterol/Ipratropium (Duoneb -) 1 amp NEB Q4H PRN PRN Reason: ASTHMA Last Admin: 06/05/16 14:39 Dose: 1 amp Aspirin (Asa -) 81 mg PO DAILY [facility] Last Admin: 06/06/16 10:11 Dose: 81 mg Carbidopa/Levodopa (Sinemet 25/100 -) 1 each PO TID [facility] Last Admin: 06/06/16 14:25 Dose: 1 each Docusate Sodium (Colace -) 100 mg PO BID PRN PRN Reason: CONSTIPATION Insulin Aspart (Novolog Vial Sliding Scale -) 1 vial SQ ACHS [facility] PRN Reason: Protocol Last Admin: 06/06/16 12:51 Dose: 4 units Insulin Detemir (Levemir Vial) 5 units SQ BID@0700,2200 [facility] Lactobacillus Acidophilus (Bacid -) 1 tab PO DAILY [facility] Last Admin: 06/06/16 10:11 Dose: 1 tab Loratadine (Claritin -) 10 mg PO DAILY [facility] Last Admin: 06/06/16 10:11 Dose: 10 mg Methylprednisolone Sodium Succinate (Solu-Medrol -) 40 mg IVPB BID [facility] Last Admin: 06/06/16 10:11 Dose: 40 mg Metoprolol Succinate (Toprol Xl -) 25 mg PO DAILY [facility] Last Admin: 06/06/16 10:11 Dose: 25 mg Multivitamins/Minerals/Vitamin C (Tab-A-Vit -) 1 tab PO DAILY [facility] Last Admin: 06/06/16 10:11 Dose: 1 tab Oxybutynin Chloride (Ditropan -) 5 mg PO BID [facility] Last Admin: 06/06/16 10:11 Dose: 5 mg Pantoprazole Sodium (Protonix -) 40 mg PO DAILY [facility] Last Admin: 06/06/16 10:11 Dose: 40 mg Vancomycin HCl (Vancomycin Oral Solution) 250 mg PO QID [facility] Last Admin: 06/06/16 14:25 Dose: 250 mg - Objective Vital Signs: Vital Signs Temperature 97.8 F 06/06/16 10:00 Pulse Rate 98 H 06/06/16 10:00 Respiratory Rate 22 06/06/16 10:00 Blood Pressure 132/82 06/06/16 10:00 O2 Sat by Pulse Oximetry (%) 97 06/06/16 09:00 Constitutional: Yes: Calm Cardiovascular: Yes: Regular Rate and Rhythm, S1, S2 Respiratory: Yes: CTA Bilaterally Gastrointestinal: Yes: Normal Bowel Sounds, Soft Edema: No Labs: CBC, BMP 06/05/16 05:35 06/06/16 10:00 INR, PTT INR 2.50 (0.82-1.09) H D 06/06/16 05:35 Problem List - Problems (1) Aspiration pneumonia Code(s): J69.0 - PNEUMONITIS DUE TO INHALATION OF FOOD AND VOMIT Qualifiers: Aspiration pneumonia type: unspecified Laterality: unspecified laterality (2) Atrial fibrillation Code(s): I48.91 - UNSPECIFIED ATRIAL FIBRILLATION (3) CVA, old, cognitive deficits Code(s): I69.31 - COGNITIVE DEFICITS FOLLOWING CEREBRAL INFARCT * DO NOT USE * (4) Dementia Code(s): F03.90 - UNSPECIFIED DEMENTIA WITHOUT BEHAVIORAL DISTURBANCE (5) Retaining fluid Code(s): E87.70 - FLUID OVERLOAD, UNSPECIFIED (6) HTN (hypertension) Code(s): I10 - ESSENTIAL (PRIMARY) HYPERTENSION (7) Diabetes Code(s): E11.9 - TYPE 2 DIABETES MELLITUS WITHOUT COMPLICATIONS Qualifiers: Diabetes mellitus complication status: with kidney complications Diabetes mellitus complication detail: with chronic kidney disease (8) C. difficile colitis Code(s): A04.7 - ENTEROCOLITIS DUE TO CLOSTRIDIUM DIFFICILE Assessment/Plan 89-year-old female sent to the ED for evaluation of cough, and a positive infiltrate seen on chest x-ray that was taken recently. Patient denies chest pain, shortness of breath, abdominal pain, back pain, headache or nausea. He also denies chills or fever. As stated A. fib currently on Coumadin, patient also with history of recent Right ankle fracture requiring casting. Patient also with history of CHF and is currently on Lasix. (1) COPD NOT ON IV ABx PER ID ST & ID CONSULTED CXR NO ACUTE DS IV STEROIDS--TAPER NEBS (2) Atrial fibrillation Code(s): I48.91 - UNSPECIFIED ATRIAL FIBRILLATION APPRECIATE CARDIO CONSULT HOLD AC 2/2 H/O FALLS ASA 81 (3) CVA, old, cognitive deficits Code(s): I69.31 - COGNITIVE DEFICITS FOLLOWING CEREBRAL INFARCT * DO NOT USE * (4) Dementia Code(s): F03.90 - UNSPECIFIED DEMENTIA WITHOUT BEHAVIORAL DISTURBANCE (5) Retaining fluid Code(s): E87.70 - FLUID OVERLOAD, UNSPECIFIED (6) HTN (hypertension) Code(s): I10 - ESSENTIAL (PRIMARY) HYPERTENSION (7) Diabetes Code(s): E11.9 - TYPE 2 DIABETES MELLITUS WITHOUT COMPLICATIONS Qualifiers: Diabetes mellitus complication status: with kidney complications Diabetes mellitus complication detail: with chronic kidney disease BGM/ISS (8) C. difficile colitis Code(s): A04.7 - ENTEROCOLITIS DUE TO CLOSTRIDIUM DIFFICILE CONFIRMED POSITIVE AT [place] ON ABx--PO TAMMY FLORES FM
[2016-06-06] MEDS ORDERED: WARFARIN NA 2 MG TABLET (UD) PO ONE ×2 (19:45→22:45)
[2016-06-06] MEDS: INSULIN DETEMIR 100 UNITS/ML MDV SQ SCH (22:48)
[2016-06-07 02:27] VITALS: TEMP 97.8
[2016-06-07] MEDS: INSULIN SLIDING SCALE (NOVOLOG) 1 VIAL SQ SCH (06:58)
[2016-06-07] MEDS: CARBIDOPA/LEVODOPA 25/100 TABLET (FP) PO SCH (06:58)
[2016-06-07] MEDS: INSULIN DETEMIR 100 UNITS/ML MDV SQ SCH (06:58)
[2016-06-07 07:53] LABS: BASOPHIL 0.1 % (0-2.0); MCH 29.2 pg (25.7-33.7); MCHC 33.3 g/dl (32.0-36.0); MEAN CELL VOLUME 87.6 fl (80-96); MEAN PLT VOLUME 8.4 fl (7.5-11.1); NEUTROPHILS 91.5 % (42.8-82.8); PLATELET COUNT 334 K/MM3 (134-434); RDW 16.2 % (11.6-15.6); WHITE BLOOD COUNT 9.2 K/mm3 (4.0-10.0)
[2016-06-07 08:14] LABS: INR 2.51 (0.82-1.09); PROTHROMBIN TIME (PATIENT) 28.1 SEC (9.98-11.88)
[2016-06-07 08:42] LABS: ANION GAP 7 (8-16); CALCIUM 8.3 mg/dL (8.5-10.1); CO2 34 mmol/L (21-32); GLUCOSE,RANDOM 203 mg/dL (74-106)
[2016-06-07 08:47] LABS: ALBUMIN 2.4 g/dl (3.4-5.0); ALK PHOS 150 U/L (45-117); CREATININE 0.6 mg/dL (0.55-1.02); SGOT/AST 14 U/L (15-37); SGPT/ALT < 6 U/L (12-78); TOT PROT 6.9 g/dl (6.4-8.2)
--- NOTE | 2016-06-07 09:03 | DS ---
Physical Examination Vital Signs: Vital Signs Temperature 97.8 F 06/07/16 02:00 Pulse Rate 101 H 06/07/16 02:00 Respiratory Rate 20 06/07/16 02:00 Blood Pressure 163/87 06/07/16 02:00 O2 Sat by Pulse Oximetry (%) 96 06/06/16 21:00 Findings/Remarks: DISCUSSED WITH NIECE WILL STOP COUMADIN THERAPY, PALLIATIVE CARE, NO NEED FOR COUMADIN, ASPIRIN THERAPY ONLY Constitutional: Yes: No Distress Eyes: Yes: WNL HENT: Yes: WNL Neck: Yes: WNL Cardiovascular: Yes: Pulse Irregular Respiratory: Yes: On Nasal O2 Gastrointestinal: Yes: WNL Musculoskeletal: Yes: Muscle Weakness Extremities: Yes: Other Edema: Yes Peripheral Pulses WNL: Yes Integumentary: Yes: WNL Wound/Incision: Yes: Other Neurological: Yes: Pre-Existing Deficit, Weakness ...Motor Strength: LLE, RLE Psychiatric: Yes: Other Labs: CBC, BMP 06/07/16 06:06 06/07/16 06:06 Discharge Summary Reason For Visit: HYPOXIA; FLUID RETENTION Current Active Problems Aspiration pneumonia (Acute) C. difficile colitis (Acute) HTN (hypertension) (Acute) Hypoxemia (Acute) Retaining fluid (Acute) Tachycardia (Acute) Procedures: Principal: XRAYS/CT SCANS Other Procedures: LABS Hospital Course: ADMITTED FOR RESP DISTRESS, TREATEWD WITH ABX AND IV STEROIDS, 02 SUPPORT, WILL DC TO [facility], STOP COUMADIN THERAPY, ONLY ASPIRIN 81MG DAILY. I DISCUSSED PALLIAITVE CARE VS HOSPICE, WITH NIECE YESTERDAY, FAMILY TO DECIDE. Condition: Guarded - Instructions Diet, Activity, Other Instructions: CHOPPED/MECHANICAL SOFT, ASPIRATION PRECAUTIONS Referrals: Camden Chang MD [Primary Care Provider] - Disposition: [facility] - Home Medications Comprehensive Discharge Medication List: Ambulatory Orders Carbidopa/Levodopa [Carbidopa-Levo 25-100 Tab] 1 each PO TID 02/26/14 Acetaminophen [Tylenol .Regular Strength -] 650 mg PO Q6H PRN #0 tablet Aspirin Coated [Ecotrin -] 81 mg PO DAILY tablet.ec 05/25/16 Docusate Sodium [Colace -] 100 mg PO BID PRN #0 capsule 05/25/16 Lactobacillus Acidophilus [Bacid -] 1 tab PO DAILY tab 05/25/16 Metoprolol Succinate [Toprol XL -] 25 mg PO DAILY tab.sr.24h 05/25/16 Oxybutynin Chloride [Ditropan -] 5 mg PO BID tablet 05/25/16 Albuterol 2.5/Ipratropium 0.5 [Duoneb -] 1 neb IH QID 06/02/16 Budesonide [Pulmicort 0.5 mg Nebulizer -] 1 neb PO BID 06/02/16 Loratadine 10 mg PO DAILY 06/02/16 Menthol/Zinc Oxide [Calmoseptine Ointment] 71 gm TP PRN 06/02/16 Mesalamine W/Cleansing Wipes [Rowasa 4 gm/60 ml Enema Kit] 4 gm RC HS 06/02/16 Multivitamins [Multivit ([facility] Formulary)] 1 tab PO DAILY 06/02/16 Omeprazole Magnesium [Prilosec] 20 mg PO DAILY 06/02/16 Vancomycin Oral Solution 250 mg PO QID 06/02/16 Aspirin [ASA -] 81 mg PO DAILY tab.chew 06/07/16 Furosemide [Lasix] 40 mg PO DAILY #0 06/07/16 Insulin (Levemir) [Levemir Vial] 5 units SQ BID@0700,2200 ml 06/07/16 Insulin Sliding Scale [Novolog Vial Sliding Scale -] 1 vial SQ ACHS units 06/07
[2016-06-07 09:08] VITALS: BP 152/88; PULSE 89
[2016-06-07] MEDS: ASPIRIN 81 MG CHEWABLE TABLETS PO SCH (09:48)
[2016-06-07] MEDS: METOPROLOL SUCCINATE 25 MG TAB.SR.24H (FP) PO SCH (09:48)
[2016-06-07] MEDS: LORATADINE 10 MG TABLET PO SCH (09:48)
[2016-06-07] MEDS: methylPREDNISolone NA SUCC 40 MG/1 ML VIAL IVPB SCH (09:48)
[2016-06-07] MEDS: OXYBUTYNIN CHLORIDE 5 MG TABLET PO SCH (09:48)
[2016-06-07] MEDS: MULTIVITAMINS (DAILY MVI) TABLET (FP) PO SCH (09:48)
[2016-06-07] MEDS: PANTOPRAZOLE 40 MG TABLET (FP) PO SCH (09:48)
[2016-06-07] MEDS: LACTOBACILLUS ACIDOPHILUS 1 EACH TAB (FP) PO SCH (09:48)
[2016-06-07] MEDS: VANCOMYCIN 250 MG/5 ML ORAL SOLUTION PO SCH (09:48)
== END 2016-06-07 10:22 | DRG 177 ==
LOC: JER 13:45 → JERBED 18:58 → J4W 20:15
PROVIDERS: ADMIT Family Medicine; ATTEND Family Medicine
DX: J69.0 Pneumonitis due to inhalation of food and vomit (principal); I50.31 Acute diastolic (congestive) heart failure; A04.7 Enterocolitis due to Clostridium difficile; R09.02 Hypoxemia; I48.91 Unspecified atrial fibrillation; D64.9 Anemia, unspecified; I10 Essential (primary) hypertension
CPT/HCPCS: 36415; 71010-TC; 74230-TC; 80048; 80053; 81003; 81015; 82550; 82803; 83605; 83735; 83880; 84484; 85025; 85610; 85730; 86850; 86900; 86901; 87040; 87086; 87254; 87804; 92611-GN; 93005; 93010; 94640; 99285-25; J3480

== ENCOUNTER 2016-09-17 13:14 | Inpatient (IN) | payer OTHER ==
[2016-09-17 14:15] LABS: BASOPHIL 0.3 % (0-2.0); EOSINOPHIL 3.1 % (0-4.5); MCH 30.3 pg (25.7-33.7); MCHC 33.3 g/dl (32.0-36.0); MEAN PLT VOLUME 7.9 fl (7.5-11.1); NEUTROPHILS 70.6 % (42.8-82.8); PLATELET COUNT 251 K/MM3 (134-434); RDW 14.3 % (11.6-15.6); WHITE BLOOD COUNT 10.6 K/mm3 (4.0-10.0)
[2016-09-17 14:32] LABS: URINE APPEARANCE CLOUDY; URINE BILIRUBIN NEGATIVE (NEGATIVE); URINE COLOR AMBER; URINE GLUCOSE (UA) NEGATIVE (NEGATIVE); URINE KETONE TRACE (NEGATIVE); URINE NITRITE POSITIVE (NEGATIVE); URINE UROBILINOGEN NEGATIVE E.U./dl (0.2-1.0)
--- NOTE | 2016-09-17 14:32 | PDOC ---
History of Present Illness - General History Source: Patient Exam Limitations: Dementia - History of Present Illness Initial Comments: 09/17/16 15:16 The patient is an 89 year old female with a significant past medical history of dementia, diabetes, hypertension, hypercholesterolemia, and A-Fib (on Coumadin) , sent from home to the Emergency Department with a clogged terrazas. The patient s nursing department chairperson reports that the patient had a terrazas placed about one week ago. She admits that the terrazas was clogged 2 days ago on 09/15, for which she came to the ER. The patients nursing aid reports that once they were home the patient s diaper was wet. The patients nursing department chairperson admits that the terrazas needs to be replaced again. Patient has no other complaints at this time. Past Medical Hx: ulcerative colitis, GERD <Esme Todd - Last Filed: 09/17/16 15:16> - General History Source: Old Records, Primary Care Provider Exam Limitations: No Limitations <Sallie Marquez - Last Filed: 09/17/16 16:17> - General Chief Complaint: Urinary Catheter Problem Stated Complaint: CATHETER DISPLACEMENT Time Seen by Provider: 09/17/16 13:21 Past History <Esme Todd - Last Filed: 09/17/16 15:16> - Past Medical History Cardiac Disorders: Yes (AFIB,) CVA: Yes Dementia: Yes Diabetes: Yes GI Disorders: Yes (ULCERATIVE COLITIS, GERD) HTN: Yes Hypercholesterolemia: Yes Suicide Attempt (Hx): No - Immunization History Immunization Up to Date: Yes - Psycho/Social/Smoking Cessation Hx Anxiety: No Suicidal Ideation: No Smoking Status: No Smoking History: Never smoked Have you smoked in the past 12 months: No Number of Cigarettes Smoked Daily: 0 If you are a former smoker, when did you quit?: Over 20 years ago Information on smoking cessation initiated: No Hx Alcohol Use: No Drug/Substance Use Hx: No Substance Use Type: None Hx Substance Use Treatment: No <Sallie Marquez - Last Filed: 09/17/16 16:17> - Past Medical History Allergies/Adverse Reactions: Allergies Allergy/AdvReac Type Severity Reaction Status Date / Time No Known Allergies Allergy Verified 09/17/16 13:36 Home Medications: Ambulatory Orders Carbidopa/Levodopa [Carbidopa-Levo 25-100 Tab] 1 each PO TID 02/26/14 Acetaminophen [Tylenol .Regular Strength -] 650 mg PO Q6H PRN #0 tablet Albuterol 2.5/Ipratropium 0.5 [Duoneb -] 1 neb IH QID #0 06/07/16 Aspirin Coated [Ecotrin -] 81 mg PO DAILY #0 tablet.ec 06/07/16 Aspirin [ASA -] 81 mg PO DAILY tab.chew 06/07/16 Budesonide [Pulmicort 0.5 mg Nebulizer -] 1 neb PO BID #0 06/07/16 Docusate Sodium [Colace -] 100 mg PO BID PRN #0 capsule 06/07/16 Furosemide [Lasix] 40 mg PO DAILY #0 06/07/16 Insulin (Levemir) [Levemir Vial] 5 units SQ BID@0700,2200 ml 06/07/16 Insulin Sliding Scale [Novolog Vial Sliding Scale -] 1 vial SQ ACHS units 06/07 Lactobacillus Acidophilus [Bacid -] 1 tab PO DAILY #0 tab 06/07/16 Loratadine 10 mg PO DAILY #0 06/07/16 Menthol/Zinc Oxide [Calmoseptine Ointment] 71 gm TP PRN #0 06/07/16 Mesalamine W/Cleansing Wipes [Rowasa 4 gm/60 ml Enema Kit] 4 gm RC HS #0 Metoprolol Succinate [Toprol XL -] 25 mg PO DAILY #0 tab.sr.24h 06/07/16 Multivitamins [Multivit ([facility] Formulary)] 1 tab PO DAILY #0 06/07/16 Omeprazole Magnesium [Prilosec] 20 mg PO DAILY #0 06/07/16 Oxybutynin Chloride [Ditropan -] 5 mg PO BID #0 tablet 06/07/16 Vancomycin Oral Solution 250 mg PO QID #0 06/07/16 Review of Systems - Review of Systems Able to Perform ROS?: No (dementia) <Esme Todd - Last Filed: 09/17/16 15:16> *Physical Exam - Vital Signs Last Vital Signs Temp Pulse Resp BP Pulse Ox 97.3 F L 78 18 113/57 100 09/17/16 13:28 09/17/16 13:28 09/17/16 13:28 09/17/16 13:28 09/17/16 13:28 - Physical Exam Comments: 09/17/16 15:17 HEAD: Normal with no signs of trauma. EYES: PERRLA, EOMI, sclera anicteric, conjunctiva clear. ENT: Ears normal, nares patent, oropharynx clear without exudates. Moist mucous membranes. NECK: Normal range of motion, supple without lymphadenopathy, JVD, or masses. LUNGS: Breath sounds equal, clear to auscultation bilaterally. No wheezes, and no crackles. HEART: Regular rate and rhythm, normal S1 and S2 without murmur, rub or gallop. ABDOMEN: Soft, nontender, normoactive bowel sounds. No guarding, no rebound. EXTREMITIES: Normal range of motion, no edema. No clubbing or cyanosis. No erythema, or tenderness. NEUROLOGICAL: Cranial nerves II through XII grossly intact. Normal speech. No focal neurological deficits. MUSCULOSKELETAL: Back nontender to palpation, no CVA tenderness GENITOURINARY: Terrazas catheter changed with cloudy urine going to bag. SKIN: Warm, Dry, normal turgor, no rashes or lesions noted. <Esme Todd - Last Filed: 09/17/16 15:16> - Vital Signs Last Vital Signs Temp Pulse Resp BP Pulse Ox 97.3 F L 78 18 113/57 100 09/17/16 13:28 09/17/16 13:28 09/17/16 13:28 09/17/16 13:28 09/17/16 13:28 <Sallie Marquez - Last Filed: 09/17/16 16:17> Heart Score/ECG Review #1 ECG reviewed & interpreted by me at: 16:15 09/17/16 16:15 Twelve-lead EKG was performed and reviewed by me. Afib rate of 70 bpm [place] nml No st elevations or depressions. T wave flattening III, aVF <Sallie Marquez - Last Filed: 09/17/16 16:17> ED Treatment Course - LABORATORY CBC & Chemistry Diagram: 09/17/16 14:00 09/17/16 14:00 - ADDITIONAL ORDERS Additional order review: Laboratory Results 09/17/16 09/17/16 14:00 14:00 Sodium 137 Potassium 4.0 Chloride 92 L Carbon Dioxide 30 Anion Gap 15 BUN 11 D Creatinine 0.7 Creat Clearance w eGFR > 60 Random Glucose 135 H D Calcium 8.6 Total Bilirubin 0.9 AST 29 D ALT 11 L D Alkaline Phosphatase 145 H Total Protein 7.2 Albumin 2.6 L Urine Color Nataly Urine Appearance Cloudy Urine pH 8.0 D Urine Protein 1+ H Urine Glucose (UA) Negative Urine Ketones Trace H Urine Blood 2+ H Urine Nitrite Positive Urine Bilirubin Negative Urine Urobilinogen Negative Ur Leukocyte Esterase 3+ H Urine RBC 23 Urine WBC 1118 Urine Bacteria Many Hyaline Casts 7 Urine Mucus Rare 09/17/16 14:00 RBC 3.91 MCV 91.0 MCHC 33.3 RDW 14.3 D MPV 7.9 Neutrophils % 70.6 D Lymphocytes % 17.5 D Monocytes % 8.5 D Eosinophils % 3.1 D Basophils % 0.3 <Esme Todd - Last Filed: 09/17/16 15:16> - LABORATORY CBC & Chemistry Diagram: 09/17/16 14:00 09/17/16 14:00 - ADDITIONAL ORDERS Additional order review: 09/17/16 14:00 RBC 3.91 MCV 91.0 MCHC 33.3 RDW 14.3 D MPV 7.9 Neutrophils % 70.6 D Lymphocytes % 17.5 D Monocytes % 8.5 D Eosinophils % 3.1 D Basophils % 0.3 <Sallie Marquez - Last Filed: 09/17/16 16:17> Medical Decision Making - Medical Decision Making 09/17/16 14:31 A portion of this note was documented by scribe services under my direction. I have reviewed the details of the note, within reason, and agree with the documentation with the following case summary and management plan written by me. Nursing documentation reviewed and incorporated into medical decision making 09/17/16 14:33 This is an 89 yo F with a history of dementia, cva, htn, niddm, afib on coumadin , mild aortic stenosis, who was brought back to the ER due to leaking around her terrazas cathether Per MICROBIOLOGY MANAGER, she was seen in the ER 2 days ago for leaking from her cathether It is unclear to me why she has a terrazas cathether at all I called pt daughter She states the cathether was placed in the detention for reasons unclear to her It was replaced several days ago due to leaking It is leaking again 09/17/16 14:34 Will send labs Will contact pt PMD to clarify reason for terrazas 09/17/16 15:06 Laboratory Tests 09/17/16 09/17/16 09/17/16 14:00 14:00 14:00 WBC 10.6 H Hgb 11.9 Hct 35.6 Plt Count 251 D Sodium 137 Potassium 4.0 Chloride 92 L Carbon Dioxide 30 BUN 11 D Creatinine 0.7 Random Glucose 135 H D Urine Blood 2+ H Urine Nitrite Positive Ur Leukocyte Esterase 3+ H Urine RBC 23 Urine WBC 1118 Urine Bacteria Many 09/17/16 15:26 Pt given Ceftriaxone Case reviewed with Dr Mann Will admit to Med Surg Will remove terrazas cathether <Sallie Marquez - Last Filed: 09/17/16 16:17> *DC/Admit/Observation/Transfer - Attestations Scribe Attestion: 09/17/16 15:17 Documentation prepared by Esme Todd, acting as medical device assembler for Sallie Marquez MD/DO. <Esme Todd - Last Filed: 09/17/16 15:16> - Discharge Dispostion Admit: Yes <Sallie Marquez - Last Filed: 09/17/16 16:17> Diagnosis at time of Disposition: Urinary tract infection Qualifiers: Urinary tract infection type: acute cystitis Hematuria presence: without hematuria Qualified Code(s): N30.00 - Acute cystitis without hematuria - Discharge Dispostion Condition at time of disposition: Stable
[2016-09-17 14:33] LABS: ALBUMIN 2.6 g/dl (3.4-5.0); ALK PHOS 145 U/L (45-117); ANION GAP 15 (8-16); BILIRUBIN,TOTAL 0.9 mg/dL (0.2-1.0); CALCIUM 8.6 mg/dL (8.5-10.1); CO2 30 mmol/L (21-32); CREATININE 0.7 mg/dL (0.55-1.02); GLUCOSE,RANDOM 135 mg/dL (74-106); SGPT/ALT 11 U/L (12-78); TOT PROT 7.2 g/dl (6.4-8.2)
[2016-09-17 14:35] LABS: SGOT/AST 29 U/L (15-37)
[2016-09-17 14:47] LABS: URINE BLOOD 2+ (NEGATIVE); URINE LEUK ESTERASE 3+ (NEGATIVE); URINE PROTEIN 1+ (NEGATIVE)
[2016-09-17 14:53] LABS: URINE BACTERIA MANY /hpf (NONE SEEN); URINE HYALINE CAST 7 /lpf; URINE MUCUS RARE; URINE RBC 23 /hpf (0-3); URINE WBC 1118 /hpf (3-5)
[2016-09-17] MEDS ORDERED: CEFTRIAXONE 1 GM in DEXTROSE 5%-WATER - 50 ML IVPB ONE (15:09)
[2016-09-17 15:14] LABS: INR 1.08 (0.82-1.09); PROTHROMBIN TIME (PATIENT) 11.9 SEC (9.98-11.88)
[2016-09-17] MEDS ORDERED: CEFTRIAXONE 50 ML ONE (15:15)
[2016-09-17 17:17] VITALS: BMI 26.6
--- NOTE | 2016-09-17 18:13 | HP ---
Admitting History and Physical - Primary Care Physician PCP: Etienne Mann - Admission Chief Complaint: uti/urinary retention History of Present Illness: The patient is an 89 year old female with a significant past medical history of dementia, diabetes, hypertension, hypercholesterolemia, and A-Fib (on Coumadin) , sent from home to the Emergency Department with a clogged terrazas. The patient s nursing home social worker reports that the patient had a terrazas placed about one week ago. She admits that the terrazas was clogged 2 days ago on 09/15, for which she came to the ER. The patients nursing aid reports that once they were home the patient s diaper was wet. The patients nursing home social worker admits that the terrazas needs to be replaced again. PATIENT HAS 3+ LEUKOESTERASE IN THE URINE AND WBC IN BLOOD ELEVATED LEUKOCYTOSIS SLIGHT HISTORY OF RESISTANT UTI History Source: Patient, Medical Record - Past Medical History [employer]: Yes: CVA, Dementia Cardiovascular: Yes: AFIB Pulmonary: Yes: COPD Renal/: Yes: UTI ...: No Heme/Onc: Yes: Anemia Endocrine: Yes: Diabetes Mellitus - Smoking History Smoking history: Former smoker Have you smoked in the past 12 months: No Aproximately how many cigarettes per day: 0 If you are a former smoker, when did you quit?: Over 20 years ago - Alcohol/Substance Use Hx Alcohol Use: No - Social History 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 History of Recent Travel: No Home Medications - Allergies Allergies/Adverse Reactions: Allergies Allergy/AdvReac Type Severity Reaction Status Date / Time No Known Allergies Allergy Verified 09/17/16 13:36 - Home Medications Home Medications: Ambulatory Orders Carbidopa/Levodopa [Carbidopa-Levo 25-100 Tab] 1 each PO TID 02/26/14 Acetaminophen [Tylenol .Regular Strength -] 650 mg PO Q6H PRN #0 tablet Albuterol 2.5/Ipratropium 0.5 [Duoneb -] 1 neb IH QID #0 06/07/16 Aspirin Coated [Ecotrin -] 81 mg PO DAILY #0 tablet.ec 06/07/16 Aspirin [ASA -] 81 mg PO DAILY tab.chew 06/07/16 Budesonide [Pulmicort 0.5 mg Nebulizer -] 1 neb PO BID #0 06/07/16 Docusate Sodium [Colace -] 100 mg PO BID PRN #0 capsule 06/07/16 Furosemide [Lasix] 40 mg PO DAILY #0 06/07/16 Insulin (Levemir) [Levemir Vial] 5 units SQ BID@0700,2200 ml 06/07/16 Insulin Sliding Scale [Novolog Vial Sliding Scale -] 1 vial SQ ACHS units 06/07 Lactobacillus Acidophilus [Bacid -] 1 tab PO DAILY #0 tab 06/07/16 Loratadine 10 mg PO DAILY #0 06/07/16 Menthol/Zinc Oxide [Calmoseptine Ointment] 71 gm TP PRN #0 06/07/16 Mesalamine W/Cleansing Wipes [Rowasa 4 gm/60 ml Enema Kit] 4 gm RC HS #0 Metoprolol Succinate [Toprol XL -] 25 mg PO DAILY #0 tab.sr.24h 06/07/16 Multivitamins [Multivit ([facility] Formulary)] 1 tab PO DAILY #0 06/07/16 Omeprazole Magnesium [Prilosec] 20 mg PO DAILY #0 06/07/16 Oxybutynin Chloride [Ditropan -] 5 mg PO BID #0 tablet 06/07/16 Vancomycin Oral Solution 250 mg PO QID #0 06/07/16 Review of Systems - Review of Systems Constitutional: reports: Weakness Eyes: reports: No Symptoms HENT: reports: No Symptoms Neck: reports: No Symptoms Cardiovascular: reports: No Symptoms Respiratory: reports: No Symptoms Gastrointestinal: reports: No Symptoms Genitourinary: reports: Incontinence Musculoskeletal: reports: Muscle Weakness Integumentary: reports: No Symptoms Neurological: reports: Pre-Existing Deficit, Weakness Endocrine: reports: Other Hematology/Lymphatic: reports: Other Psychiatric: reports: Other Physical Examination Vital Signs: Vital Signs Temperature 97.6 F 09/17/16 16:54 Pulse Rate 92 H 09/17/16 16:54 Respiratory Rate 18 09/17/16 16:54 Blood Pressure 110/96 09/17/16 16:54 O2 Sat by Pulse Oximetry (%) 100 09/17/16 16:54 Constitutional: Yes: Mild Distress Eyes: Yes: WNL HENT: Yes: WNL Neck: Yes: WNL Cardiovascular: Yes: Pulse Irregular Respiratory: Yes: WNL Gastrointestinal: Yes: WNL Renal/: Yes: Terrazas Present Musculoskeletal: Yes: Muscle Weakness Extremities: Yes: WNL Edema: Yes Edema: LLE: Trace, RLE: Trace Peripheral Pulses WNL: Yes Integumentary: Yes: WNL Wound/Incision: Yes: Clean/Dry Neurological: Yes: Pre-Existing Deficit, Unsteady Gait, Weakness ...Motor Strength: LLE, RLE Problem List - Problems (1) Urinary tract infection Code(s): N39.0 - URINARY TRACT INFECTION, SITE NOT SPECIFIED Qualifiers: Urinary tract infection type: acute cystitis Hematuria presence: without hematuria Qualified Code(s): N30.00 - Acute cystitis without hematuria (2) Anemia Code(s): D64.9 - ANEMIA, UNSPECIFIED Qualifiers: Other causes of anemia: chronic disease, kidney (3) Atrial fibrillation Code(s): I48.91 - UNSPECIFIED ATRIAL FIBRILLATION (4) CVA, old, cognitive deficits Code(s): I69.31 - COGNITIVE DEFICITS FOLLOWING CEREBRAL INFARCT * DO NOT USE * (5) Dementia Code(s): F03.90 - UNSPECIFIED DEMENTIA WITHOUT BEHAVIORAL DISTURBANCE (6) Diabetes Code(s): E11.9 - TYPE 2 DIABETES MELLITUS WITHOUT COMPLICATIONS (7) Terrazas catheter problem Code(s): T83.9XXA - UNSP COMPLICATION OF GENITOURINARY PROSTH DEV/GRFT, INIT (8) Frequent falls Code(s): R29.6 - REPEATED FALLS (9) HTN (hypertension) Code(s): I10 - ESSENTIAL (PRIMARY) HYPERTENSION Assessment/Plan IVF IV ABX ID CONSULT EVAL PT EVAL DC HOME WHEN READY
[2016-09-17] MEDS ORDERED: ACETAMINOPHEN 325 MG TABLET (FP) PO PRN (18:17)
[2016-09-17] MEDS ORDERED: ALBUTEROL SO4 2.5/IPRATROPIUM 0.5 INH SOL 3 ML VIAL.NEB. NEB PRN (18:17)
[2016-09-17] MEDS ORDERED: INSULIN (NOVOLOG) ASPART 100 UNITS/ML 10ML VIAL ONE (21:20)
[2016-09-17] MEDS: INSULIN SLIDING SCALE (NOVOLOG) 1 VIAL SQ SCH (22:48)
[2016-09-17] MEDS: INSULIN DETEMIR 100 UNITS/ML MDV SQ SCH (22:49)
[2016-09-17] MEDS: OXYBUTYNIN CHLORIDE 5 MG TABLET PO SCH (22:49)
[2016-09-17] MEDS: METOPROLOL SUCCINATE 25 MG TAB.SR.24H (FP) PO SCH (22:49)
[2016-09-17] MEDS: DOCUSATE SODIUM 100 MG CAPSULE (FP) PO SCH (22:49)
[2016-09-17] MEDS: CARBIDOPA/LEVODOPA 25/100 TABLET (FP) PO SCH (22:49)
[2016-09-17] MEDS: VANCOMYCIN 250 MG/5 ML ORAL SOLUTION PO SCH (23:53)
[2016-09-18] MEDS: INSULIN SLIDING SCALE (NOVOLOG) 1 VIAL SQ SCH ×4 (06:34→22:55)
[2016-09-18] MEDS: CARBIDOPA/LEVODOPA 25/100 TABLET (FP) PO SCH ×3 (06:34→22:56)
[2016-09-18] MEDS: VANCOMYCIN 250 MG/5 ML ORAL SOLUTION PO SCH ×4 (06:34→23:28)
--- NOTE | 2016-09-18 11:53 | CON.CARD ---
Cardiology Consult (text) - Consultation Consultation Note: CC[place] malfunction hpi: 89 yo f with h/o dementia, cva, htn, DM, afib, mild as, mod mr, mild ar, [place]. History limited due to dementia, pt denies any sxs and is not sure why in hospital. She denies cp, sob, palps, dizzy,loc, pnd, orthopnea, le edema. Admitted for terrazas malfunction and UTI. pmh: per hpi psh: non contrib social: ex tobacco fam: non contrib ros: per hpi; no nvd, fever, [place], vision changes, muscle pains,dysuria, cough, nasal congestion meds: Home Medications Medication Instructions Recorded Carbidopa/Levodopa [Carbidopa-Levo 1 each PO TID 02/26/14 25-100 Tab] Acetaminophen [Tylenol .Regular 650 mg PO Q6H PRN #0 tablet 06/07/16 Strength -] Albuterol 2.5/Ipratropium 0.5 1 neb IH QID #0 06/07/16 [Duoneb -] Aspirin Coated [Ecotrin -] 81 mg PO DAILY #0 tablet.ec 06/07/16 Aspirin [ASA -] 81 mg PO DAILY tab.chew 06/07/16 Budesonide [Pulmicort 0.5 mg 1 neb PO BID #0 06/07/16 Nebulizer -] Docusate Sodium [Colace -] 100 mg PO BID PRN #0 capsule 06/07/16 Furosemide [Lasix] 40 mg PO DAILY #0 06/07/16 Insulin (Levemir) [Levemir Vial] 5 units SQ BID@0700,2200 ml 06/07/16 Insulin Sliding Scale [Novolog 1 vial SQ ACHS units 06/07/16 Vial Sliding Scale -] Lactobacillus Acidophilus [Bacid -] 1 tab PO DAILY #0 tab 06/07/16 Loratadine 10 mg PO DAILY #0 06/07/16 Menthol/Zinc Oxide [Calmoseptine 71 gm TP PRN #0 06/07/16 Ointment] Mesalamine W/Cleansing Wipes 4 gm RC HS #0 06/07/16 [Rowasa 4 gm/60 ml Enema Kit] Metoprolol Succinate [Toprol XL -] 25 mg PO DAILY #0 tab.sr.24h 06/07/16 Multivitamins [Multivit ([facility] 1 tab PO DAILY #0 06/07/16 Formulary)] Omeprazole Magnesium [Prilosec] 20 mg PO DAILY #0 06/07/16 Oxybutynin Chloride [Ditropan -] 5 mg PO BID #0 tablet 06/07/16 Vancomycin Oral Solution 250 mg PO QID #0 06/07/16 pe: Vital Signs Period Temp Pulse Resp BP Sys/[place] Pulse Ox Last 24 Hr 97.3 F-98.1 F 73-92 18-84 110-136/49-96 98-100 NAD, no jvd cta bl nl eff Irregularly, irregular nl s1, s2 no m/r/g + bs soft nt nd no le edema/c/c +distal pulses, no carotid bruits no jaundice diaphoresis awake, confused Laboratory Last Values WBC 10.6 K/mm3 (4.0-10.0) H 09/17/16 14:00 RBC 3.91 M/mm3 (3.60-5.2) 09/17/16 14:00 Hgb 11.9 GM/dL (10.7-15.3) 09/17/16 14:00 Hct 35.6 % (32.4-45.2) 09/17/16 14:00 MCV 91.0 fl (80-96) 09/17/16 14:00 MCHC 33.3 g/dl (32.0-36.0) 09/17/16 14:00 RDW 14.3 % (11.6-15.6) D 09/17/16 14:00 Plt Count 251 K/MM3 (134-434) D 09/17/16 14:00 MPV 7.9 fl (7.5-11.1) 09/17/16 14:00 Neutrophils % 70.6 % (42.8-82.8) D 09/17/16 14:00 Lymphocytes % 17.5 % (8-40) D 09/17/16 14:00 Monocytes % 8.5 % (3.8-10.2) D 09/17/16 14:00 Eosinophils % 3.1 % (0-4.5) D 09/17/16 14:00 Basophils % 0.3 % (0-2.0) 09/17/16 14:00 INR 1.08 (0.82-1.09) D 09/17/16 14:00 Sodium 137 mmol/L (136-145) 09/17/16 14:00 Potassium 4.0 mmol/L (3.5-5.1) 09/17/16 14:00 Chloride 92 mmol/L (98-107) L 09/17/16 14:00 Carbon Dioxide 30 mmol/L (21-32) 09/17/16 14:00 Anion Gap 15 (8-16) 09/17/16 14:00 BUN 11 mg/dL (7-18) D 09/17/16 14:00 Creatinine 0.7 mg/dL (0.55-1.02) 09/17/16 14:00 Creat Clearance w eGFR > 60 (>60) 09/17/16 14:00 POC Glucometer 80 UNITS (()) 09/18/16 06:50 Random Glucose 135 mg/dL (74-106) H D 09/17/16 14:00 Calcium 8.6 mg/dL (8.5-10.1) 09/17/16 14:00 Total Bilirubin 0.9 mg/dL (0.2-1.0) 09/17/16 14:00 AST 29 U/L (15-37) D 09/17/16 14:00 ALT 11 U/L (12-78) L D 09/17/16 14:00 Alkaline Phosphatase 145 U/L (45-117) H 09/17/16 14:00 Total Protein 7.2 g/dl (6.4-8.2) 09/17/16 14:00 Albumin 2.6 g/dl (3.4-5.0) L 09/17/16 14:00 Urine Color Nataly 09/17/16 14:00 Urine Appearance Cloudy 09/17/16 14:00 Urine pH 8.0 (5.0-8.0) D 09/17/16 14:00 Ur Specific [place] 1.010 (1.005-1.025) 09/17/16 14:00 Urine Protein 1+ (NEGATIVE) H 09/17/16 14:00 Urine Glucose (UA) Negative (NEGATIVE) 09/17/16 14:00 Urine Ketones Trace (NEGATIVE) H 09/17/16 14:00 Urine Blood 2+ (NEGATIVE) H 09/17/16 14:00 Urine Nitrite Positive (NEGATIVE) 09/17/16 14:00 Urine Bilirubin Negative (NEGATIVE) 09/17/16 14:00 Urine Urobilinogen Negative E.U./dl (0.2-1.0) 09/17/16 14:00 Ur Leukocyte Esterase 3+ (NEGATIVE) H 09/17/16 14:00 Urine RBC 23 /hpf (0-3) 09/17/16 14:00 Urine WBC 1118 /hpf (3-5) 09/17/16 14:00 Urine Bacteria Many /hpf (NONE SEEN) 09/17/16 14:00 Hyaline Casts 7 /lpf 09/17/16 14:00 Urine Mucus Rare 09/17/16 14:00 echo 2012: nl lv/rv. mod benito. - JON measured at 0.9, but PG and MG only , mod MAC. mod MR/TR. RVSP 46 echo 05/2016: tds; nl lv/rv, benito, mild mr/tr, rvsp 30-40, mild cxr: no chf ecg 09/17/16: afib, vr 70, nl qtc, no ischemic changes a/p: 89 yo f with h/o dementia, cva, htn, dm, afib, mild as, mod mr, mild ar, [place] malfunction. chronic diastolic chf: -stable volume status, cont with po lasix for maintenance afib with h/o CVA: - hr controlled, cont current bb - hi CHADS-VASC with prior CVA (7) - was previously on AC but stopped and now on asa 2/2 fall risk HTN -controlled on bb history of mod mr, mild ar, mild , pHTN: - stable on recent echo - cont lasix uti: -cont abx per pmd
[2016-09-18] MEDS: LACTOBACILLUS ACIDOPHILUS 1 EACH TAB (FP) PO SCH (12:02)
[2016-09-18] MEDS: LORATADINE 10 MG TABLET PO SCH (12:02)
[2016-09-18] MEDS: ASPIRIN 81 MG CHEWABLE TABLETS PO SCH (12:02)
[2016-09-18] MEDS: PANTOPRAZOLE 40 MG TABLET (FP) PO SCH (12:03)
[2016-09-18] MEDS: METOPROLOL SUCCINATE 25 MG TAB.SR.24H (FP) PO SCH ×2 (12:03→22:56)
[2016-09-18] MEDS: MULTIVITAMINS (DAILY MVI) TABLET (FP) PO SCH (12:03)
[2016-09-18] MEDS: FUROSEMIDE 40 MG TABLET (FP) PO SCH (12:03)
[2016-09-18] MEDS: OXYBUTYNIN CHLORIDE 5 MG TABLET PO SCH ×2 (12:03→22:56)
--- NOTE | 2016-09-18 12:33 | CON.GU ---
Consult Consult Specialty:: urology Referred by:: Johnathan Reason for Consultation:: uti - History of Present Illness Chief Complaint: uti with history of retention History of Present Illness: Patient has a history of a CVA and dementia and has had urinary retention in the past and uti's with resistant organisms. Patient presents with a uti and leakage around her terrazas. She is now without the terrazas and is comfortable. Her PVR is about 120cc. - History Source History Provided By: Patient, Medical Record, Caregiver Limitations to Obtaining History: Dementia - Past Medical History [employer]: Yes: CVA, Dementia Cardio/Vascular: Yes: AFIB Pulmonary: Yes: COPD Renal/: Yes: UTI ...: No Endocrine: Yes: Diabetes Mellitus Additional Medical History: groin abscess s/p incision and drainage 2012 - Alcohol/Substance Use Hx Alcohol Use: No - Smoking History Smoking history: Former smoker Have you smoked in the past 12 months: No Aproximately how many cigarettes per day: 0 If you are a former smoker, when did you quit?: Over 20 years ago - Social History Usual Living Arrangement: Other (with aide) 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) Occupation: uses [employer] History of Recent Travel: No Home Medications - Allergies Allergies/Adverse Reactions: Allergies Allergy/AdvReac Type Severity Reaction Status Date / Time No Known Allergies Allergy Verified 09/17/16 13:36 - Home Medications Home Medications: Ambulatory Orders Carbidopa/Levodopa [Carbidopa-Levo 25-100 Tab] 1 each PO TID 02/26/14 Acetaminophen [Tylenol .Regular Strength -] 650 mg PO Q6H PRN #0 tablet Albuterol 2.5/Ipratropium 0.5 [Duoneb -] 1 neb IH QID #0 06/07/16 Aspirin Coated [Ecotrin -] 81 mg PO DAILY #0 tablet.ec 06/07/16 Aspirin [ASA -] 81 mg PO DAILY tab.chew 06/07/16 Budesonide [Pulmicort 0.5 mg Nebulizer -] 1 neb PO BID #0 06/07/16 Docusate Sodium [Colace -] 100 mg PO BID PRN #0 capsule 06/07/16 Furosemide [Lasix] 40 mg PO DAILY #0 06/07/16 Insulin (Levemir) [Levemir Vial] 5 units SQ BID@0700,2200 ml 06/07/16 Insulin Sliding Scale [Novolog Vial Sliding Scale -] 1 vial SQ ACHS units 06/07 Lactobacillus Acidophilus [Bacid -] 1 tab PO DAILY #0 tab 06/07/16 Loratadine 10 mg PO DAILY #0 06/07/16 Menthol/Zinc Oxide [Calmoseptine Ointment] 71 gm TP PRN #0 06/07/16 Mesalamine W/Cleansing Wipes [Rowasa 4 gm/60 ml Enema Kit] 4 gm RC HS #0 Metoprolol Succinate [Toprol XL -] 25 mg PO DAILY #0 tab.sr.24h 06/07/16 Multivitamins [Multivit ([facility] Formul[facility])] 1 tab PO DAILY #0 06/07/16 Omeprazole Magnesium [Prilosec] 20 mg PO DAILY #0 06/07/16 Oxybutynin Chloride [Ditropan -] 5 mg PO BID #0 tablet 06/07/16 Vancomycin Oral Solution 250 mg PO QID #0 06/07/16 Physical Exam- Vital Signs: Vital Signs Temperature 97.8 F 09/18/16 06:00 Pulse Rate 86 09/17/16 22:00 Respiratory Rate 84 H 09/18/16 06:00 Blood Pressure 117/57 09/18/16 06:00 O2 Sat by Pulse Oximetry (%) 100 09/17/16 21:00 Constitutional: Yes: No Distress, Calm Eyes: Yes: WNL, Conjunctiva Clear, EOM Intact HENT: Yes: WNL, Atraumatic, Normocephalic Neck: Yes: WNL, Supple, Trachea Midline Respiratory: Yes: WNL, Regular Gastrointestinal: Yes: WNL, Normal Bowel Sounds Renal/: Yes: WNL Kidneys: Yes: WNL Pelvis: Yes: WNL, Bladder Non Palpable External Genitalia: Yes: WNL Assessment/Plan impression uti neurogenic bladder with history of retention plan patient with uti and history of retention. Most likely the patient was having spasms secondary to the uti which caused the incontinence. Would recommend a trial of voiding; nursing will check bladder scans continue antibiotics and check urine cultures
--- NOTE | 2016-09-18 12:33 | PN ---
Progress Note (short form) - Note Progress Note: ID Consult dictated UTI S/P obstructed terrazas Augmentin 500mg po bid
--- NOTE | 2016-09-18 13:30 | CONS ---
DATE OF CONSULTATION: DATE OF DICTATION: 09/18/2016 The patient is an 89-year-old female who is evaluated for urinary tract infection. History was obtained from the chart, as she cannot give a history secondary to dementia. She has an indwelling Patel catheter at home. She had been evaluated in the emergency room on September 15, 2016, after the Patel became obstructed. She now returns with recurrent obstruction of the Patel catheter. It had been inserted approximately 1 week ago for reasons which are not clear at this time. She has had a history of recurrent urinary tract infections in the past. No reports of high-grade fever or shaking chills. She does have a mild leukocytosis. At the present time, she is awake, but she is confused. She offers no complaints. She denies any pain. PAST MEDICAL HISTORY: Positive for dementia, stroke, diabetes mellitus, hypertension, hyperlipidemia, atrial fibrillation, ulcerative colitis, gastroesophageal reflux, history of recurrent urinary tract infections. No known allergies. MEDICATIONS: Tylenol, Bacid, Toprol, Colace, Sinemet, Ditropan, Levemir, Lasix, Protonix, Claritin. SOCIAL HISTORY: She lives at home. She was previously in a longterm facility. Has a home health aide. SYSTEMS REVIEW: Neurologic: Positive for dementia and stroke. Cardiac: Positive for atrial fibrillation. Respiratory: Negative cough or sputum production. Gastrointestinal: Negative vomiting or diarrhea. Genitourinary: As per HPI. LABORATORY DATA: White count 10.6, hematocrit 35.6, platelet count 251. BUN 11, creatinine 0.7. Urinalysis with 1018 white cells. Urine culture growing a lactose property caretaker. Previous urine cultures have grown citrobacter, proteus, and klebsiella. PHYSICAL EXAMINATION: General: The patient is awake, but confused. Vital Signs: Temperature 97.8, blood pressure 117/57, pulse 84 and regular, respirations 20 per minute. HEENT: Sclerae anicteric. Cardiac: Heart sounds S1, S2, irregular. Lungs: Clear bilaterally. Abdomen: Soft. No suprapubic or flank tenderness. Extremities: Negative for edema. IMPRESSION: 1. Recurrent urinary tract infection. 2. Status post removal of obstructed Patel. 3. Dementia. Will empirically treat, pending cultures, with Augmentin 500 mg p.o. b.i.d. based on previous urine cultures. According to the notes, the patient also had a history of Clostridium difficile colitis. As such, would recommend short-course of antibiotic therapy. Urology evaluation to assess need for Patel catheter. Will follow. Thank you for the kind referral. HIWOT BADI M.D. SHARRI/[id number]
[2016-09-18] MEDS: AMOX TR/POT CLAV 500MG/125MG TABLETS (FP) PO SCH (17:33)
--- NOTE | 2016-09-18 21:26 | PN ---
Progress Note, Physician Chief Complaint: AWAKE EATING LUNCH WHEN SEEN, NAD - Current Medication List Current Medications: Active Medications Acetaminophen (Tylenol -) 650 mg PO Q6H PRN PRN Reason: FEVER OR PAIN Albuterol/Ipratropium (Duoneb -) 1 amp NEB Q6H PRN PRN Reason: SHORTNESS OF BREATH Amoxicillin/Clavulanate Potassium (Augmentin - 500mg Tablet) 1 tab PO BID@0800, 1730 [facility] Last Admin: 09/18/16 17:33 Dose: 1 tab Aspirin (Asa -) 81 mg PO DAILY [facility] Last Admin: 09/18/16 12:02 Dose: 81 mg Carbidopa/Levodopa (Sinemet 25/100 -) 1 each PO TID [facility] Last Admin: 09/18/16 13:51 Dose: 1 each Docusate Sodium (Colace -) 300 mg PO HS [facility] Last Admin: 09/17/16 22:49 Dose: 300 mg Furosemide (Lasix -) 40 mg PO DAILY [facility] Last Admin: 09/18/16 12:03 Dose: 40 mg Insulin Aspart (Novolog Vial Sliding Scale -) 1 vial SQ ACHS [facility] PRN Reason: Protocol Last Admin: 09/18/16 17:33 Dose: Not Given Insulin Detemir (Levemir Vial) 5 units SQ HS [facility] Last Admin: 09/17/16 22:49 Dose: 5 units Lactobacillus Acidophilus (Bacid -) 1 tab PO DAILY [facility] Last Admin: 09/18/16 12:02 Dose: 1 tab Loratadine (Claritin -) 10 mg PO DAILY [facility] Last Admin: 09/18/16 12:02 Dose: 10 mg Metoprolol Succinate (Toprol Xl -) 25 mg PO BID [facility] Last Admin: 09/18/16 12:03 Dose: 25 mg Multivitamins/Minerals/Vitamin C (Tab-A-Vit -) 1 tab PO DAILY [facility] Last Admin: 09/18/16 12:03 Dose: 1 tab Oxybutynin Chloride (Ditropan -) 5 mg PO BID [facility] Last Admin: 09/18/16 12:03 Dose: 5 mg Pantoprazole Sodium (Protonix -) 40 mg PO DAILY [facility] Last Admin: 09/18/16 12:03 Dose: 40 mg Vancomycin HCl (Vancomycin Oral Solution) 250 mg PO Q6HPO [facility] Last Admin: 05/14/17 17:33 Dose: 250 mg - Objective Vital Signs: Vital Signs Temperature 97.4 F L 09/18/16 18:00 Pulse Rate 76 09/18/16 18:00 Respiratory Rate 20 09/18/16 18:00 Blood Pressure 135/79 09/18/16 18:00 O2 Sat by Pulse Oximetry (%) 96 09/18/16 09:00 Constitutional: Yes: Mild Distress Eyes: Yes: WNL HENT: Yes: WNL Neck: Yes: WNL Cardiovascular: Yes: WNL Respiratory: Yes: WNL Gastrointestinal: Yes: WNL Genitourinary: Yes: WNL Musculoskeletal: Yes: Muscle Weakness Extremities: Yes: WNL Edema: No Peripheral Pulses WNL: Yes Integumentary: Yes: WNL Wound/Incision: Yes: Clean/Dry Neurological: Yes: Pre-Existing Deficit, Weakness ...Motor Strength: LLE, RLE Psychiatric: Yes: WNL Labs: INR, PTT INR 1.08 (0.82-1.09) D 09/17/16 14:00 Problem List - Problems (1) Urinary tract infection Code(s): N39.0 - URINARY TRACT INFECTION, SITE NOT SPECIFIED Qualifiers: Urinary tract infection type: acute cystitis Hematuria presence: without hematuria Qualified Code(s): N30.00 - Acute cystitis without hematuria (2) Anemia Code(s): D64.9 - ANEMIA, UNSPECIFIED Qualifiers: Other causes of anemia: chronic disease, kidney (3) Atrial fibrillation Code(s): I48.91 - UNSPECIFIED ATRIAL FIBRILLATION (4) CVA, old, cognitive deficits Code(s): I69.31 - COGNITIVE DEFICITS FOLLOWING CEREBRAL INFARCT * DO NOT USE * (5) Dementia Code(s): F03.90 - UNSPECIFIED DEMENTIA WITHOUT BEHAVIORAL DISTURBANCE (6) Diabetes Code(s): E11.9 - TYPE 2 DIABETES MELLITUS WITHOUT COMPLICATIONS (7) Mustafa catheter problem Code(s): T83.9XXA - UNSP COMPLICATION OF GENITOURINARY PROSTH DEV/GRFT, INIT (8) Frequent falls Code(s): R29.6 - REPEATED FALLS (9) HTN (hypertension) Code(s): I10 - ESSENTIAL (PRIMARY) HYPERTENSION Assessment/Plan DISCUSSED WITH CORNEL NELSONEY FLOMAX STARTED PO ABX MONITOR FOR URINE OUTPUT
[2016-09-18] MEDS: DOCUSATE SODIUM 100 MG CAPSULE (FP) PO SCH (22:55)
[2016-09-18] MEDS: INSULIN DETEMIR 100 UNITS/ML MDV SQ SCH (22:56)
[2016-09-19] MEDS: VANCOMYCIN 250 MG/5 ML ORAL SOLUTION PO SCH ×4 (06:50→23:00)
[2016-09-19] MEDS: CARBIDOPA/LEVODOPA 25/100 TABLET (FP) PO SCH ×3 (06:50→22:07)
[2016-09-19] MEDS: INSULIN SLIDING SCALE (NOVOLOG) 1 VIAL SQ SCH ×4 (06:53→22:12)
[2016-09-19] MEDS ORDERED: PT OWN MED DRAWER 7, Y5N ONE ×6 (08:39→20:50)
[2016-09-19] MEDS: AMOX TR/POT CLAV 500MG/125MG TABLETS (FP) PO SCH ×2 (08:48→17:15)
--- NOTE | 2016-09-19 09:22 | PN ---
Progress Note, Physician History of Present Illness: Awake but confused Offers no complaints Terrazas out Pt denies dysuria Afebrile No diarrhea - Current Medication List Current Medications: Active Medications Acetaminophen (Tylenol -) 650 mg PO Q6H PRN PRN Reason: FEVER OR PAIN Albuterol/Ipratropium (Duoneb -) 1 amp NEB Q6H PRN PRN Reason: SHORTNESS OF BREATH Amoxicillin/Clavulanate Potassium (Augmentin - 500mg Tablet) 1 tab PO BID@0800, 1730 [facility] Last Admin: 09/19/16 08:48 Dose: 1 tab Aspirin (Asa -) 81 mg PO DAILY [facility] Last Admin: 09/18/16 12:02 Dose: 81 mg Carbidopa/Levodopa (Sinemet 25/100 -) 1 each PO TID [facility] Last Admin: 09/19/16 06:50 Dose: 1 each Docusate Sodium (Colace -) 300 mg PO HS [facility] Last Admin: 09/18/16 22:55 Dose: 300 mg Furosemide (Lasix -) 40 mg PO DAILY [facility] Last Admin: 09/18/16 12:03 Dose: 40 mg Insulin Aspart (Novolog Vial Sliding Scale -) 1 vial SQ ACHS [facility] PRN Reason: Protocol Last Admin: 09/19/16 06:53 Dose: Not Given Insulin Detemir (Levemir Vial) 5 units SQ HS [facility] Last Admin: 09/18/16 22:56 Dose: 5 units Lactobacillus Acidophilus (Bacid -) 1 tab PO DAILY [facility] Last Admin: 09/18/16 12:02 Dose: 1 tab Loratadine (Claritin -) 10 mg PO DAILY [facility] Last Admin: 09/18/16 12:02 Dose: 10 mg Metoprolol Succinate (Toprol Xl -) 25 mg PO BID [facility] Last Admin: 09/18/16 22:56 Dose: 25 mg Multivitamins/Minerals/Vitamin C (Tab-A-Vit -) 1 tab PO DAILY [facility] Last Admin: 09/18/16 12:03 Dose: 1 tab Oxybutynin Chloride (Ditropan -) 5 mg PO BID [facility] Last Admin: 09/18/16 22:56 Dose: 5 mg Pantoprazole Sodium (Protonix -) 40 mg PO DAILY [facility] Last Admin: 09/18/16 12:03 Dose: 40 mg Vancomycin HCl (Vancomycin Oral Solution) 250 mg PO Q6HPO [facility] Last Admin: 09/19/16 06:50 Dose: 250 mg - Objective Vital Signs: Vital Signs Temperature 98.7 F 09/19/16 05:51 Pulse Rate 79 09/19/16 05:51 Respiratory Rate 20 09/19/16 05:51 Blood Pressure 114/59 09/19/16 05:51 O2 Sat by Pulse Oximetry (%) 96 09/18/16 21:00 Constitutional: Yes: No Distress Eyes: Yes: Conjunctiva Clear Cardiovascular: Yes: Regular Rate and Rhythm, S1, S2 Respiratory: Yes: CTA Bilaterally Gastrointestinal: Yes: Normal Bowel Sounds, Soft. No: Tenderness Edema: No Labs: INR, PTT INR 1.08 (0.82-1.09) D 09/17/16 14:00 Assessment/Plan Recurrent UTI Hx indwelling terrazas catheter Hx C.difficile (05/24) Await final urine c/s Anticipate short course Augmentin Urology consult appreciated. Voiding trial Discussed with derek
--- NOTE | 2016-09-19 10:46 | EKG ---
Test Reason : Blood Pressure : / mmHG Vent. Rate : 070 BPM Atrial Rate : 070 BPM P-R Int : 000 ms QRS Dur : 072 ms QT Int : 394 ms P-R-T Axes : 000 -19 011 degrees QTc Int : 425 ms ATRIAL FIBRILLATION NONSPECIFIC ST AND T WAVE ABNORMALITY ABNORMAL ECG WHEN COMPARED WITH ECG OF 02-JUN-2016 14:09, VENT. RATE HAS DECREASED BY 36 BPM PREMATURE VENTRICULAR COMPLEXES ARE NO LONGER SEEN Confirmed by ALLISON WILSON, BRAULIO ([id number]) on 09/19/2016 10:45:27 AM Referred By: Confirmed By:BRAULIO COOPER MD
[2016-09-19] MEDS: LORATADINE 10 MG TABLET PO SCH (10:47)
[2016-09-19] MEDS: PANTOPRAZOLE 40 MG TABLET (FP) PO SCH (10:47)
[2016-09-19] MEDS: OXYBUTYNIN CHLORIDE 5 MG TABLET PO SCH ×2 (10:47→22:07)
[2016-09-19] MEDS: METOPROLOL SUCCINATE 25 MG TAB.SR.24H (FP) PO SCH ×2 (10:47→22:07)
[2016-09-19] MEDS: LACTOBACILLUS ACIDOPHILUS 1 EACH TAB (FP) PO SCH (10:47)
[2016-09-19] MEDS: FUROSEMIDE 40 MG TABLET (FP) PO SCH (10:47)
[2016-09-19] MEDS: MULTIVITAMINS (DAILY MVI) TABLET (FP) PO SCH (10:47)
[2016-09-19] MEDS: ASPIRIN 81 MG CHEWABLE TABLETS PO SCH (10:47)
--- NOTE | 2016-09-19 16:52 | PN ---
Progress Note (short form) - Note Progress Note: s: no cp sob palps dizzy o: Vital Signs Period Temp Pulse Resp BP Sys/Navarro Pulse Ox Last 24 Hr 97.4 F-98.7 F 76-93 20-20 100-135/59-79 96-97 NAD, no jvd cta bl nl eff Irregularly, irregular nl s1, s2 no m/r/g + bs soft nt nd no le edema/c/c no jaundice diaphoresis awake, confused Current Medications Generic Name Dose Route Start Last Admin Trade Name Freq PRN Reason Stop Dose Admin Acetaminophen 650 mg 09/17/16 18:17 Tylenol - PO Q6H PRN FEVER OR PAIN Albuterol/Ipratropium 1 amp 09/17/16 18:17 Duoneb - NEB Q6H PRN SHORTNESS OF BREATH Amoxicillin/Clavulanate Potassium 1 tab 09/18/16 17:30 09/19/16 08:48 Augmentin - 500mg Tablet PO 1 tab BID@0800,1730 [facility] Administration Aspirin 81 mg 09/18/16 10:00 09/19/16 10:47 Asa - PO 81 mg DAILY [facility] Administration Carbidopa/Levodopa 1 each 09/17/16 22:00 09/19/16 13:32 Sinemet 25/100 - PO 1 each TID [facility] Administration Docusate Sodium 300 mg 09/17/16 22:00 09/18/16 22:55 Colace - PO 300 mg HS [facility] Administration Furosemide 40 mg 09/18/16 10:00 09/19/16 10:47 Lasix - PO 40 mg DAILY [facility] Administration Insulin Aspart 1 vial 09/17/16 22:00 09/19/16 12:06 Novolog Vial Sliding Scale - SQ Not Given ACHS [facility] Protocol Insulin Detemir 5 units 09/17/16 22:00 09/18/16 22:56 Levemir Vial SQ 5 units HS [facility] Administration Lactobacillus Acidophilus 1 tab 09/18/16 10:00 09/19/16 10:47 Bacid - PO 1 tab DAILY [facility] Administration Loratadine 10 mg 09/18/16 10:00 09/19/16 10:47 Claritin - PO 10 mg DAILY [facility] Administration Metoprolol Succinate 25 mg 09/17/16 22:00 09/19/16 10:47 Toprol Xl - PO 25 mg BID [facility] Administration Multivitamins/Minerals/Vitamin C 1 tab 09/18/16 10:00 09/19/16 10:47 Tab-A-Vit - PO 1 tab DAILY [facility] Administration Oxybutynin Chloride 5 mg 09/17/16 22:00 09/19/16 10:47 Ditropan - PO 5 mg BID [facility] Administration Pantoprazole Sodium 40 mg 09/18/16 10:00 09/19/16 10:47 Protonix - PO 40 mg DAILY [facility] Administration Vancomycin HCl 250 mg 09/18/16 00:00 09/19/16 12:04 Vancomycin Oral Solution PO 250 mg Q6HPO [facility] Administration 09/17/16 14:00 09/17/16 14:00 echo 2012: nl lv/rv. mod benito. - JON measured at 0.9, but PG and MG only , mod MAC. mod MR/TR. RVSP 46 echo 05/2016: tds; nl lv/rv, benito, mild mr/tr, rvsp 30-40, mild cxr: no chf ecg 09/17/16: afib, vr 70, nl qtc, no ischemic changes a/p: 89 yo f with h/o dementia, cva, htn, dm, afib, mild as, mod mr, mild ar, sent from in for terrazas malfunction. chronic diastolic chf: -stable volume status, cont with po lasix for maintenance afib with h/o CVA: - hr controlled, cont current bb - hi CHADS-VASC with prior CVA (7) - was previously on AC but stopped and now on asa 2/2 fall risk HTN -controlled on bb history of mod mr, mild ar, mild , pHTN: - stable on recent echo - cont lasix uti: -cont abx per pmd
[2016-09-19] MEDS ORDERED: OLANZapine 2.5 MG TABLET PO ONE (17:00)
--- NOTE | 2016-09-19 20:15 | PN ---
Progress Note, Physician Chief Complaint: AWAKE ALERT NURSES NOTES REVIEWED, PATIENT HALLUCINATING - Current Medication List Current Medications: Active Medications Acetaminophen (Tylenol -) 650 mg PO Q6H PRN PRN Reason: FEVER OR PAIN Albuterol/Ipratropium (Duoneb -) 1 amp NEB Q6H PRN PRN Reason: SHORTNESS OF BREATH Amoxicillin/Clavulanate Potassium (Augmentin - 500mg Tablet) 1 tab PO BID@0800, 1730 [facility] Last Admin: 09/19/16 17:15 Dose: 1 tab Aspirin (Asa -) 81 mg PO DAILY [facility] Last Admin: 09/19/16 10:47 Dose: 81 mg Carbidopa/Levodopa (Sinemet 25/100 -) 1 each PO TID [facility] Last Admin: 09/19/16 13:32 Dose: 1 each Docusate Sodium (Colace -) 300 mg PO HS [facility] Last Admin: 09/18/16 22:55 Dose: 300 mg Furosemide (Lasix -) 40 mg PO DAILY [facility] Last Admin: 09/19/16 10:47 Dose: 40 mg Insulin Aspart (Novolog Vial Sliding Scale -) 1 vial SQ ACHS [facility] PRN Reason: Protocol Last Admin: 09/19/16 17:21 Dose: Not Given Insulin Detemir (Levemir Vial) 5 units SQ HS [facility] Last Admin: 09/18/16 22:56 Dose: 5 units Lactobacillus Acidophilus (Bacid -) 1 tab PO DAILY [facility] Last Admin: 09/19/16 10:47 Dose: 1 tab Loratadine (Claritin -) 10 mg PO DAILY [facility] Last Admin: 09/19/16 10:47 Dose: 10 mg Metoprolol Succinate (Toprol Xl -) 25 mg PO BID [facility] Last Admin: 09/19/16 10:47 Dose: 25 mg Multivitamins/Minerals/Vitamin C (Tab-A-Vit -) 1 tab PO DAILY [facility] Last Admin: 09/19/16 10:47 Dose: 1 tab Oxybutynin Chloride (Ditropan -) 5 mg PO BID [facility] Last Admin: 09/19/16 10:47 Dose: 5 mg Pantoprazole Sodium (Protonix -) 40 mg PO DAILY [facility] Last Admin: 09/19/16 10:47 Dose: 40 mg Vancomycin HCl (Vancomycin Oral Solution) 250 mg PO Q6HPO [facility] Last Admin: 09/19/16 17:15 Dose: 250 mg - Objective Vital Signs: Vital Signs Temperature 98.7 F 09/19/16 18:00 Pulse Rate 104 H 09/19/16 18:00 Respiratory Rate 22 09/19/16 18:00 Blood Pressure 128/61 09/19/16 18:00 O2 Sat by Pulse Oximetry (%) 97 09/19/16 09:00 Constitutional: Yes: No Distress Eyes: Yes: WNL HENT: Yes: WNL Neck: Yes: WNL Cardiovascular: Yes: Pulse Irregular Respiratory: Yes: WNL Gastrointestinal: Yes: WNL Genitourinary: Yes: Incontinence, Other Musculoskeletal: Yes: Muscle Weakness Extremities: Yes: Other Edema: Yes Peripheral Pulses WNL: Yes Integumentary: Yes: WNL Wound/Incision: Yes: Clean/Dry Neurological: Yes: Confusion, Pre-Existing Deficit, Weakness ...Motor Strength: LLE, RLE Psychiatric: Yes: Agitated, Other Labs: INR, PTT INR 1.08 (0.82-1.09) D 09/17/16 14:00 Problem List - Problems (1) Urinary tract infection Code(s): N39.0 - URINARY TRACT INFECTION, SITE NOT SPECIFIED Qualifiers: Urinary tract infection type: acute cystitis Hematuria presence: without hematuria Qualified Code(s): N30.00 - Acute cystitis without hematuria (2) Anemia Code(s): D64.9 - ANEMIA, UNSPECIFIED Qualifiers: Other causes of anemia: chronic disease, kidney (3) Atrial fibrillation Code(s): I48.91 - UNSPECIFIED ATRIAL FIBRILLATION (4) CVA, old, cognitive deficits Code(s): I69.31 - COGNITIVE DEFICITS FOLLOWING CEREBRAL INFARCT * DO NOT USE * (5) Dementia Code(s): F03.90 - UNSPECIFIED DEMENTIA WITHOUT BEHAVIORAL DISTURBANCE (6) Diabetes Code(s): E11.9 - TYPE 2 DIABETES MELLITUS WITHOUT COMPLICATIONS (7) Patel catheter problem Code(s): T83.9XXA - UNSP COMPLICATION OF GENITOURINARY PROSTH DEV/GRFT, INIT (8) Frequent falls Code(s): R29.6 - REPEATED FALLS (9) HTN (hypertension) Code(s): I10 - ESSENTIAL (PRIMARY) HYPERTENSION Assessment/Plan REPEAT SONO OF BLADDER CHECK RESIDUAL VOLUME UROLOGY AND NEPHROLOGY EVAL APPRECIATED DISCUSSED WITH CARDIOLOGY NOT A CANDIDATE FOR AC ASA THERAPY ONLY PT EVAL HOME WITH VNS
[2016-09-19] MEDS ORDERED: INSULIN (NOVOLOG) ASPART 100 UNITS/ML 10ML VIAL ONE (20:49)
[2016-09-19] MEDS: DOCUSATE SODIUM 100 MG CAPSULE (FP) PO SCH (22:04)
[2016-09-19] MEDS: INSULIN DETEMIR 100 UNITS/ML MDV SQ SCH (22:12)
[2016-09-20] MEDS: VANCOMYCIN 250 MG/5 ML ORAL SOLUTION PO SCH ×3 (06:11→18:28)
[2016-09-20] MEDS: CARBIDOPA/LEVODOPA 25/100 TABLET (FP) PO SCH ×3 (06:11→23:04)
[2016-09-20] MEDS: INSULIN SLIDING SCALE (NOVOLOG) 1 VIAL SQ SCH ×4 (06:15→23:16)
[2016-09-20] MEDS ORDERED: PT OWN MED DRAWER 7, Y5N ONE (11:39)
[2016-09-20] MEDS: AMOX TR/POT CLAV 500MG/125MG TABLETS (FP) PO SCH ×2 (12:42→18:30)
[2016-09-20] MEDS: LORATADINE 10 MG TABLET PO SCH (12:43)
[2016-09-20] MEDS: ASPIRIN 81 MG CHEWABLE TABLETS PO SCH (12:43)
[2016-09-20] MEDS: LACTOBACILLUS ACIDOPHILUS 1 EACH TAB (FP) PO SCH (12:43)
[2016-09-20] MEDS: FUROSEMIDE 40 MG TABLET (FP) PO SCH (12:44)
[2016-09-20] MEDS: MULTIVITAMINS (DAILY MVI) TABLET (FP) PO SCH (12:44)
[2016-09-20] MEDS: METOPROLOL SUCCINATE 25 MG TAB.SR.24H (FP) PO SCH ×2 (12:44→23:03)
[2016-09-20] MEDS: OXYBUTYNIN CHLORIDE 5 MG TABLET PO SCH ×2 (12:44→23:04)
[2016-09-20] MEDS: PANTOPRAZOLE 40 MG TABLET (FP) PO SCH (12:44)
--- NOTE | 2016-09-20 15:03 | PN ---
Progress Note, Physician Chief Complaint: ASLEEP SOMNOLENT VOIDING URINE WITH OUT MUSTAFA - Current Medication List Current Medications: Active Medications Acetaminophen (Tylenol -) 650 mg PO Q6H PRN PRN Reason: FEVER OR PAIN Albuterol/Ipratropium (Duoneb -) 1 amp NEB Q6H PRN PRN Reason: SHORTNESS OF BREATH Amoxicillin/Clavulanate Potassium (Augmentin - 500mg Tablet) 1 tab PO BID@0800, 1730 [facility] Last Admin: 09/20/16 12:42 Dose: 1 tab Aspirin (Asa -) 81 mg PO DAILY [facility] Last Admin: 09/20/16 12:43 Dose: 81 mg Carbidopa/Levodopa (Sinemet 25/100 -) 1 each PO TID [facility] Last Admin: 09/20/16 06:11 Dose: 1 each Docusate Sodium (Colace -) 300 mg PO HS [facility] Last Admin: 09/19/16 22:04 Dose: 300 mg Furosemide (Lasix -) 40 mg PO DAILY [facility] Last Admin: 09/20/16 12:44 Dose: 40 mg Insulin Aspart (Novolog Vial Sliding Scale -) 1 vial SQ ACHS [facility] PRN Reason: Protocol Last Admin: 09/20/16 12:53 Dose: Not Given Insulin Detemir (Levemir Vial) 5 units SQ HS [facility] Last Admin: 09/19/16 22:12 Dose: 5 units Lactobacillus Acidophilus (Bacid -) 1 tab PO DAILY [facility] Last Admin: 09/20/16 12:43 Dose: 1 tab Loratadine (Claritin -) 10 mg PO DAILY [facility] Last Admin: 09/20/16 12:43 Dose: 10 mg Metoprolol Succinate (Toprol Xl -) 25 mg PO BID [facility] Last Admin: 09/20/16 12:44 Dose: 25 mg Multivitamins/Minerals/Vitamin C (Tab-A-Vit -) 1 tab PO DAILY [facility] Last Admin: 09/20/16 12:44 Dose: 1 tab Oxybutynin Chloride (Ditropan -) 5 mg PO BID [facility] Last Admin: 09/20/16 12:44 Dose: 5 mg Pantoprazole Sodium (Protonix -) 40 mg PO DAILY [facility] Last Admin: 09/20/16 12:44 Dose: 40 mg Vancomycin HCl (Vancomycin Oral Solution) 250 mg PO Q6HPO [facility] Last Admin: 09/20/16 12:44 Dose: 250 mg - Objective Vital Signs: Vital Signs Temperature 97.8 F 09/20/16 10:00 Pulse Rate 94 H 09/20/16 14:53 Respiratory Rate 16 09/20/16 14:53 Blood Pressure 117/56 09/20/16 14:53 O2 Sat by Pulse Oximetry (%) 100 09/20/16 09:00 Constitutional: Yes: Other Eyes: Yes: WNL HENT: Yes: WNL Neck: Yes: WNL Cardiovascular: Yes: Pulse Irregular Respiratory: Yes: WNL Gastrointestinal: Yes: WNL Genitourinary: Yes: Other Musculoskeletal: Yes: Muscle Weakness Extremities: Yes: Other Edema: No Peripheral Pulses WNL: Yes Integumentary: Yes: Bruising Wound/Incision: Yes: Dressing Dry and Intact Neurological: Yes: Pre-Existing Deficit, Weakness ...Motor Strength: LLE, RLE Psychiatric: Yes: Other Labs: INR, PTT INR 1.08 (0.82-1.09) D 09/17/16 14:00 Problem List - Problems (1) Urinary tract infection Code(s): N39.0 - URINARY TRACT INFECTION, SITE NOT SPECIFIED Qualifiers: Urinary tract infection type: acute cystitis Hematuria presence: without hematuria Qualified Code(s): N30.00 - Acute cystitis without hematuria (2) Anemia Code(s): D64.9 - ANEMIA, UNSPECIFIED Qualifiers: Other causes of anemia: chronic disease, kidney (3) Atrial fibrillation Code(s): I48.91 - UNSPECIFIED ATRIAL FIBRILLATION (4) CVA, old, cognitive deficits Code(s): I69.31 - COGNITIVE DEFICITS FOLLOWING CEREBRAL INFARCT * DO NOT USE * (5) Dementia Code(s): F03.90 - UNSPECIFIED DEMENTIA WITHOUT BEHAVIORAL DISTURBANCE (6) Diabetes Code(s): E11.9 - TYPE 2 DIABETES MELLITUS WITHOUT COMPLICATIONS (7) Mustafa catheter problem Code(s): T83.9XXA - UNSP COMPLICATION OF GENITOURINARY PROSTH DEV/GRFT, INIT (8) Frequent falls Code(s): R29.6 - REPEATED FALLS (9) HTN (hypertension) Code(s): I10 - ESSENTIAL (PRIMARY) HYPERTENSION Assessment/Plan STOP NEUROLEPTICS FOR NOW PATIENT LETHARGIC OOB TO CHAIR DC PLANNING TOMORROW
[2016-09-20] MEDS: DOCUSATE SODIUM 100 MG CAPSULE (FP) PO SCH (23:04)
[2016-09-20] MEDS: INSULIN DETEMIR 100 UNITS/ML MDV SQ SCH (23:16)
[2016-09-21] MEDS: VANCOMYCIN 250 MG/5 ML ORAL SOLUTION PO SCH ×2 (00:43→06:01)
[2016-09-21] MEDS: CARBIDOPA/LEVODOPA 25/100 TABLET (FP) PO SCH (06:01)
[2016-09-21] MEDS: INSULIN SLIDING SCALE (NOVOLOG) 1 VIAL SQ SCH (06:05)
--- NOTE | 2016-09-21 06:57 | DS ---
Physical Examination Vital Signs: Vital Signs Temperature 97.9 F 09/21/16 05:45 Pulse Rate 86 09/21/16 05:45 Respiratory Rate 18 09/21/16 05:45 Blood Pressure 107/76 09/21/16 05:45 O2 Sat by Pulse Oximetry (%) 100 09/20/16 21:00 Constitutional: Yes: No Distress Eyes: Yes: WNL HENT: Yes: WNL Neck: Yes: WNL Cardiovascular: Yes: Pulse Irregular Respiratory: Yes: WNL Gastrointestinal: Yes: WNL Renal/: Yes: Incontinence Musculoskeletal: Yes: Muscle Weakness Extremities: Yes: WNL Edema: Yes Edema: LLE: Trace, RLE: Trace Peripheral Pulses WNL: Yes Integumentary: Yes: WNL Wound/Incision: Yes: Clean/Dry Neurological: Yes: Pre-Existing Deficit, Weakness ...Motor Strength: LLE, RLE Psychiatric: Yes: Other Discharge Summary Reason For Visit: UTI Current Active Problems Urinary tract infection (Acute) urinary retention 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 Procedures: Principal: labs/xrays Hospital Course: admitted for workup, abx given, terrazas discontinued, doing well, dc home Condition: Stable - Instructions Diet, Activity, Other Instructions: oob to chair/walker at home, low sodium/diabteic, Disposition: VNS/HOME HEALTH CARE - Home Medications Comprehensive Discharge Medication List: Ambulatory Orders Carbidopa/Levodopa [Carbidopa-Levo 25-100 Tab] 1 each PO TID 02/26/14 Acetaminophen [Tylenol .Regular Strength -] 650 mg PO Q6H PRN #0 tablet Albuterol 2.5/Ipratropium 0.5 [Duoneb -] 1 neb IH QID #0 06/07/16 Aspirin Coated [Ecotrin -] 81 mg PO DAILY #0 tablet.ec 06/07/16 Aspirin [ASA -] 81 mg PO DAILY tab.chew 06/07/16 Budesonide [Pulmicort 0.5 mg Nebulizer -] 1 neb PO BID #0 06/07/16 Docusate Sodium [Colace -] 100 mg PO BID PRN #0 capsule 06/07/16 Furosemide [Lasix] 40 mg PO DAILY #0 06/07/16 Insulin (Levemir) [Levemir Vial] 5 units SQ BID@0700,2200 ml 06/07/16 Insulin Sliding Scale [Novolog Vial Sliding Scale -] 1 vial SQ ACHS units 06/07 Lactobacillus Acidophilus [Bacid -] 1 tab PO DAILY #0 tab 06/07/16 Loratadine 10 mg PO DAILY #0 06/07/16 Menthol/Zinc Oxide [Calmoseptine Ointment] 71 gm TP PRN #0 06/07/16 Mesalamine W/Cleansing Wipes [Rowasa 4 gm/60 ml Enema Kit] 4 gm RC HS #0 Metoprolol Succinate [Toprol XL -] 25 mg PO DAILY #0 tab.sr.24h 06/07/16 Multivitamins [Multivit ([facility] Formulary)] 1 tab PO DAILY #0 06/07/16 Omeprazole Magnesium [Prilosec] 20 mg PO DAILY #0 06/07/16 Oxybutynin Chloride [Ditropan -] 5 mg PO BID #0 tablet 06/07/16 Vancomycin Oral Solution 250 mg PO QID #0 06/07/16 Amox-Tr/K Cl [Augmentin 500-125mg Tablet -] 1 tab PO BID@0800,1730 #10 tablet
--- NOTE | 2016-09-21 06:58 | PN ---
Progress Note (short form) - Note Progress Note: PATIENT IS A FUNCTIONAL QUADRIPLEGIC Problem List - Problems (1) Urinary tract infection Code(s): N39.0 - URINARY TRACT INFECTION, SITE NOT SPECIFIED Qualifiers: Urinary tract infection type: acute cystitis Hematuria presence: without hematuria Qualified Code(s): N30.00 - Acute cystitis without hematuria (2) Anemia Code(s): D64.9 - ANEMIA, UNSPECIFIED Qualifiers: Other causes of anemia: chronic disease, kidney (3) Atrial fibrillation Code(s): I48.91 - UNSPECIFIED ATRIAL FIBRILLATION (4) CVA, old, cognitive deficits Code(s): I69.31 - COGNITIVE DEFICITS FOLLOWING CEREBRAL INFARCT * DO NOT USE * (5) Dementia Code(s): F03.90 - UNSPECIFIED DEMENTIA WITHOUT BEHAVIORAL DISTURBANCE (6) Diabetes Code(s): E11.9 - TYPE 2 DIABETES MELLITUS WITHOUT COMPLICATIONS (7) Patel catheter problem Code(s): T83.9XXA - UNSP COMPLICATION OF GENITOURINARY PROSTH DEV/GRFT, INIT (8) Frequent falls Code(s): R29.6 - REPEATED FALLS (9) HTN (hypertension) Code(s): I10 - ESSENTIAL (PRIMARY) HYPERTENSION
[2016-09-21 07:40] LABS: MCH 30.5 pg (25.7-33.7); MCHC 33.3 g/dl (32.0-36.0); MEAN CELL VOLUME 91.6 fl (80-96); MEAN PLT VOLUME 7.6 fl (7.5-11.1); PLATELET COUNT 244 K/MM3 (134-434); RDW 14.3 % (11.6-15.6); WHITE BLOOD COUNT 8.9 K/mm3 (4.0-10.0)
--- NOTE | 2016-09-21 08:33 | PN ---
Progress Note (short form) - Note Progress Note: discussed with dr bridges from , will discharge patient with urine terrazas because of continued retention and bring back for suprapubic cath. Problem List - Problems (1) Urinary tract infection Code(s): N39.0 - URINARY TRACT INFECTION, SITE NOT SPECIFIED Qualifiers: Urinary tract infection type: acute cystitis Hematuria presence: without hematuria Qualified Code(s): N30.00 - Acute cystitis without hematuria (2) Anemia Code(s): D64.9 - ANEMIA, UNSPECIFIED Qualifiers: Other causes of anemia: chronic disease, kidney (3) Atrial fibrillation Code(s): I48.91 - UNSPECIFIED ATRIAL FIBRILLATION (4) CVA, old, cognitive deficits Code(s): I69.31 - COGNITIVE DEFICITS FOLLOWING CEREBRAL INFARCT * DO NOT USE * (5) Dementia Code(s): F03.90 - UNSPECIFIED DEMENTIA WITHOUT BEHAVIORAL DISTURBANCE (6) Diabetes Code(s): E11.9 - TYPE 2 DIABETES MELLITUS WITHOUT COMPLICATIONS (7) Terrazas catheter problem Code(s): T83.9XXA - UNSP COMPLICATION OF GENITOURINARY PROSTH DEV/GRFT, INIT (8) Frequent falls Code(s): R29.6 - REPEATED FALLS (9) HTN (hypertension) Code(s): I10 - ESSENTIAL (PRIMARY) HYPERTENSION
[2016-09-21 09:11] LABS: CALCIUM 8.5 mg/dL (8.5-10.1); COCKROFT - GAULT 66.317; CREATININE 0.7 mg/dL (0.55-1.02)
[2016-09-21] MEDS ORDERED: PT OWN MED DRAWER 7, Y5N ONE (09:20)
[2016-09-21] MEDS: METOPROLOL SUCCINATE 25 MG TAB.SR.24H (FP) PO SCH (09:28)
[2016-09-21] MEDS: MULTIVITAMINS (DAILY MVI) TABLET (FP) PO SCH (09:28)
[2016-09-21] MEDS: PANTOPRAZOLE 40 MG TABLET (FP) PO SCH (09:28)
[2016-09-21] MEDS: FUROSEMIDE 40 MG TABLET (FP) PO SCH (09:28)
[2016-09-21] MEDS: LORATADINE 10 MG TABLET PO SCH (09:28)
[2016-09-21] MEDS: OXYBUTYNIN CHLORIDE 5 MG TABLET PO SCH (09:28)
[2016-09-21] MEDS: LACTOBACILLUS ACIDOPHILUS 1 EACH TAB (FP) PO SCH (09:28)
[2016-09-21] MEDS: AMOX TR/POT CLAV 500MG/125MG TABLETS (FP) PO SCH (09:28)
[2016-09-21] MEDS: ASPIRIN 81 MG CHEWABLE TABLETS PO SCH (09:28)
[2016-09-21 09:36] VITALS: BP 101/65; PULSE 88; TEMP 97.6
--- NOTE | 2016-09-21 11:21 | PN ---
Progress Note (short form) - Note Progress Note: s: no cp sob palps dizzy o: Vital Signs Period Temp Pulse Resp BP Sys/Navarro Pulse Ox Last 24 Hr 97.3 F-98.1 F 86-94 16-18 98-138/47-76 93-100 NAD, no jvd cta bl nl eff Irregularly, irregular nl s1, s2 no m/r/g + bs soft nt nd no le edema/c/c no jaundice diaphoresis awake, confused but answering basic questions appropriately Current Medications Generic Name Dose Route Start Last Admin Trade Name Freq PRN Reason Stop Dose Admin Acetaminophen 650 mg 09/17/16 18:17 Tylenol - PO Q6H PRN FEVER OR PAIN Albuterol/Ipratropium 1 amp 09/17/16 18:17 Duoneb - NEB Q6H PRN SHORTNESS OF BREATH Amoxicillin/Clavulanate Potassium 1 tab 09/18/16 17:30 09/21/16 09:28 Augmentin - 500mg Tablet PO 1 tab BID@0800,1730 BLESSING Administration Aspirin 81 mg 09/18/16 10:00 09/21/16 09:28 Asa - PO 81 mg DAILY BLESSING Administration Carbidopa/Levodopa 1 each 09/17/16 22:00 09/21/16 06:01 Sinemet 25/100 - PO 1 each TID BLESSING Administration Docusate Sodium 300 mg 09/17/16 22:00 09/20/16 23:04 Colace - PO 300 mg HS BLESSING Administration Furosemide 40 mg 09/18/16 10:00 09/21/16 09:28 Lasix - PO 40 mg DAILY BLESSING Administration Insulin Aspart 1 vial 09/17/16 22:00 09/21/16 06:05 Novolog Vial Sliding Scale - SQ Not Given ACHS BLESSING Protocol Insulin Detemir 5 units 09/17/16 22:00 09/20/16 23:16 Levemir Vial SQ 5 units HS BLESSING Administration Lactobacillus Acidophilus 1 tab 09/18/16 10:00 09/21/16 09:28 Bacid - PO 1 tab DAILY BLESSING Administration Loratadine 10 mg 09/18/16 10:00 09/21/16 09:28 Claritin - PO 10 mg DAILY BLESSING Administration Metoprolol Succinate 25 mg 09/17/16 22:00 09/21/16 09:28 Toprol Xl - PO 25 mg BID BLESSING Administration Multivitamins/Minerals/Vitamin C 1 tab 09/18/16 10:00 09/21/16 09:28 Tab-A-Vit - PO 1 tab DAILY BLESSING Administration Oxybutynin Chloride 5 mg 09/17/16 22:00 09/21/16 09:28 Ditropan - PO 5 mg BID BLESSING Administration Pantoprazole Sodium 40 mg 09/18/16 10:00 09/21/16 09:28 Protonix - PO 40 mg DAILY BLESSING Administration Vancomycin HCl 250 mg 09/18/16 00:00 09/21/16 06:01 Vancomycin Oral Solution PO 250 mg Q6HPO BLESSING Administration 09/21/16 06:00 09/21/16 06:00 echo 2012: nl lv/rv. mod benito. - JON measured at 0.9, but PG and MG only , mod MAC. mod MR/TR. RVSP 46 echo 05/2016: tds; nl lv/rv, benito, mild mr/tr, rvsp 30-40, mild cxr: no chf ecg 09/17/16: afib, vr 70, nl qtc, no ischemic changes a/p: 89 yo f with h/o dementia, cva, htn, dm, afib, mild as, mod mr, mild ar, sent from [place] for terrazas malfunction. chronic diastolic chf: -stable volume status, cont with po lasix for maintenance afib with h/o CVA: - hr controlled, cont current bb - hi CHADS-VASC with prior CVA (7) - was previously on AC but stopped and now on asa 2/2 fall risk HTN -controlled on bb history of mod mr, mild ar, mild , pHTN: - stable on recent echo - cont lasix uti: -cont abx per pmd
== END 2016-09-21 11:53 | disposition home health service (06) | DRG 698 ==
LOC: JER 13:14 → JERBED 15:30 → J7W 18:23
PROVIDERS: ADMIT Family Medicine; ATTEND Family Medicine
DX: T83.031A Leakage of indwelling urethral catheter, initial encounter (principal); R53.2 Functional quadriplegia; N39.0 Urinary tract infection, site not specified; K51.90 Ulcerative colitis, unspecified, without complications; I50.32 Chronic diastolic (congestive) heart failure; E11.9 Type 2 diabetes mellitus without complications; E78.5 Hyperlipidemia, unspecified; I48.91 Unspecified atrial fibrillation; F03.90 Unspecified dementia, unspecified severity, without behavioral disturbance, psychotic disturbance, mood disturbance, and anxiety; K21.9 Gastro-esophageal reflux disease without esophagitis; D64.9 Anemia, unspecified; R29.6 Repeated falls; R33.9 Retention of urine, unspecified; N31.9 Neuromuscular dysfunction of bladder, unspecified; I27.2 Other secondary pulmonary hypertension; I08.0 Rheumatic disorders of both mitral and aortic valves; J44.9 Chronic obstructive pulmonary disease, unspecified; I11.0 Hypertensive heart disease with heart failure; Z86.73 Personal history of transient ischemic attack (TIA), and cerebral infarction without residual deficits; Z87.891 Personal history of nicotine dependence
CPT/HCPCS: 36415; 71010-TC; 80048; 80053; 81003; 81015; 85025; 85027; 85610; 87086; 87186; 93005; 93010; 97161-GP; 99283-25; 99284-25